=== PATIENT | female | born 1940 | race Caucasian/White ===

== ENCOUNTER 2016-08-24 04:03 | Inpatient (IN) | payer MEDICARE ==
[~2016-08-24] VITALS: Ht 154.9 cm; Wt 86.4 kg
[2016-08-24] MEDS ORDERED: NITR0.4D6 TD (04:40)
[2016-08-24] MEDS ORDERED: XARE20TA PO (04:40)
[2016-08-24] MEDS ORDERED: NITR0.4S14 SL (04:40)
[2016-08-24] MEDS ORDERED: LOSA100T37 PO (04:40)
[2016-08-24] MEDS ORDERED: METF1000 PO (04:40)
[2016-08-24] MEDS ORDERED: GABA-283 PO (04:40)
[2016-08-24] MEDS ORDERED: ATOR1TAB19 PO (04:40)
[2016-08-24] MEDS ORDERED: DORZ2OPD OU (04:40)
[2016-08-24] MEDS ORDERED: FENO48TA2 PO (04:40)
[2016-08-24] MEDS ORDERED: POTA10CA PO (04:40)
[2016-08-24] MEDS ORDERED: [UNRECOGNIZED DRUG - CODE] XX (04:40)
[2016-08-24] MEDS ORDERED: GLIM2TAB PO (04:40)
[2016-08-24] MEDS ORDERED: PROA1AER INH (04:40)
[2016-08-24] MEDS ORDERED: methylPREDNISolone INJ 125 MG/2 ML VIAL (J2930) IV ONE (04:45)
[2016-08-24 05:21] LABS: BASO % 0.4 % (0.0-1.0); EOS # 0.1 K/mm3 (0.0-0.50); LARGE UNSTAINED CELL # 0.1 K/mm3 (0.0-0.4); LARGE UNSTAINED CELL % 0.7 % (0.0-4.0); LYMPH # 1.1 K/mm3 (1.5-4.5); LYMPH % 7.9 % (24.0-44.0); MEAN CORPUSCULAR HEMOGLOBIN 32.8 pg (27.0-33.0); MEAN CORPUSCULAR HGB CONC 33.8 g/dl (32.0-36.5); MEAN CORPUSCULAR VOLUME 97.1 fl (80.0-96.0); MONO # 0.7 K/mm3 (0.0-0.8); MONO % 5.5 % (0.0-5.0); NEUTROPHILS # 10.7 K/mm3 (1.8-7.7); NEUTROPHILS % 84.6 % (36.0-66.0); PLATELET COUNT, AUTOMATED 225 k/mm3 (150-450); RED CELL DISTRIBUTION WIDTH 12.5 % (11.5-14.5); WHITE BLOOD COUNT 12.7 K/mm3 (4.0-10.0)
[2016-08-24] MEDS: IPRATROPIUM 0.5MG/ALBUTEROL 2.5MG INH SOL UD 3ML (DUONEB)(J7620) NEB SCH ×2 (05:23→05:40)
[2016-08-24 05:27] LABS: ABG BASE EXCESS -0.2 (-2.0-2.0); ABG HCO3 24.8 MEQ/L (22.0-26.0); ABG PARTIAL PRESSURE CO2 41.6 mmHg (35.0-45.0); ABG PARTIAL PRESSURE O2 63.1 mmHg (75.0-100.0); ABG STANDARD HCO3 24.2 MEQ/L (22.0-26.0); ABG TOTAL CO2 26.1 MEQ/L (23.0-31.0); ABG pH (ARTERIAL) 7.393 UNITS (7.350-7.450)
[2016-08-24 05:40] LABS: ANION GAP 11 MEQ/L (8-16); BLOOD UREA NITROGEN 17 MG/DL (7-18); CALCIUM LEVEL 8.2 MG/DL (8.8-10.2); CARBON DIOXIDE LEVEL 27 MEQ/L (21-32); CHLORIDE LEVEL 105 MEQ/L (98-107); CREATININE FOR GFR 0.72 MG/DL (0.55-1.02); GLOMERULAR FILTRATION RATE > 60.0 (>39); GLUCOSE, FASTING 162 MG/DL (83-110); POTASSIUM SERUM 3.6 MEQ/L (3.5-5.1); SODIUM LEVEL 143 MEQ/L (136-145)
[2016-08-24 05:50] VITALS: O2SAT 94
[2016-08-24] MEDS ORDERED: VITA1CHW8 PO (06:28)
[2016-08-24] MEDS ORDERED: BRIM1OPD OU (06:28)
[2016-08-24] MEDS ORDERED: CITRTAB13 PO (06:28)
[2016-08-24] MEDS ORDERED: DILT180C28 PO (06:28)
[2016-08-24] MEDS ORDERED: VITMTA PO (06:28)
[2016-08-24] MEDS ORDERED: ACETAMINOPHEN TAB 650MG DOSE (2X325MG) PO PRN (06:30)
[2016-08-24 06:50] VITALS: BP 150/68
[2016-08-24 06:51] VITALS: BP 140/65
[2016-08-24 06:52] VITALS: BP 138/65
[2016-08-24] MEDS ORDERED: NITROGLYCERIN 0.4 MG SUBL TABLET SL PRN (07:00)
[2016-08-24] MEDS ORDERED: ALBUTEROL 90 MCG/ACT 8GM HFA INHALER INH PRN (07:00)
[2016-08-24] MEDS ORDERED: IPRATROPIUM 0.5MG/ALBUTEROL 2.5MG INH SOL UD 3ML (DUONEB)(J7620) NEB PRN (07:45)
--- NOTE | 2016-08-24 07:49 | HPE ---
DATE OF ADMISSION: 08/24/2016 PRIMARY CARE PROVIDER: Dr. Juan Alberto Rueda. HOSPITALIZATION COURSE: Patient is a 36-year-old female with past medical history significant for type 2 diabetes, history of diverticulitis, chronic obstructive pulmonary disease (COPD), atrial fibrillation, Raynaud's syndrome, obstructive sleep apnea (PATY), hyperlipidemia, hypertension, polyneuropathy, rosacea, nocturnal hypoxia, presented to [facility] 08/24/2016 for acute worsening of shortness of breath. Patient stated in the past 24 hours, patient started having some minor cough and discomfort and she went to sleep and woke up 2 a.m. in the morning with worsening shortness of breath and significant fatigue and subjective fever. Patient was noted to have increased cough, increased sputum production and sputum production was a whitish-clear sputum. Denies any recent sick contact. Denies any chest pain. When patient presented to [facility], patient was thought to have O2 sat of 72% on room air and patient required high oxygen support so IV Solu-Medrol was given to the patient, however, patient did not have any significant improvement. Other significant history includes patient having rectal bleeding intermittently in the past few months and colonoscopy was done 2 years ago and patient is not aware of any significant findings. Patient was noted to have intermittent dizziness. ALLERGIES: No known drug allergies. PAST MEDICAL HISTORY: Type 2 diabetes. History of diverticulitis. Chronic obstructive pulmonary disease (COPD). Atrial fibrillation. Raynaud's syndrome. Obstructive sleep apnea (PATY). Patient is on CPAP or BiPAP. Patient is using 2 liters nasal cannula at night. Hyperlipidemia. Hypertension. Polyneuropathy from diabetes. Rosacea. Nocturnal hypoxia. PAST SURGICAL HISTORY: Hysterectomy. Gallbladder surgery. Cataract surgery. Dilation and curettage (D and C). A and P repair. HOME MEDICATIONS: - Breo one puff inhalation daily - glimepiride 2 mg by mouth daily - Lipitor 10 mg by mouth daily - Xarelto 20 mg by mouth daily - Alphagan eye drops three times daily - multivitamin one tablet by mouth daily - calcium 250 mg daily - vitamin D 2000 units by mouth daily - Mucinex 600 mg every 12 hours as needed - MetroGel on face daily - Nitro-Dur patch daily - dorzolamide one drop to affected eye twice daily - Diltiazem 180 mg by mouth daily - Klor-Con 10 mEq by mouth daily - Biotin one tablet by mouth daily - Neurontin 200 mg by mouth daily at bedtime - Metformin 1000 mg by mouth twice daily - Tricor 48 mg by mouth daily - Benicar 20/12.5 mg by mouth daily SOCIAL HISTORY: Patient used to smoke one pack daily for more than 30 years. Quit 10 years ago. Denied alcohol use. Denied recreational drug use. Patient is DO NOT RESUSCITATE/DO NOT INTUBATE. REVIEW OF SYSTEMS: General: Patient experienced subjective fever. No chills. HEENT: No vision changes. No auditory changes. Cardiovascular: No chest pain. No palpitations. Patient does have a history of atrial fibrillation. Respiratory: History of chronic obstructive pulmonary disease (COPD) and obstructive sleep apnea (PATY). Acute worsening breathing over the past 24 hours, more significant since 2 a.m. this morning. Patient complains of increased cough, increased sputum production. Gastrointestinal (GI): No nausea, no vomiting, no abdominal pain. Patient does complain of intermittent rectal bleeding. Colonoscopy was done 2 years ago. No significant finding was informed. Musculoskeletal: Patient has polyneuropathy from diabetes. Denies any acute numbness or tingling. Musculoskeletal: Patient has rosacea and Raynaud's syndrome. OBJECTIVE: Vital signs: Temperature is 97.4, pulse is 88, respiration rate 16, blood pressure is 153/72, pulse ox 92% with 3-4 liters nasal cannula (O2 sat is 72% on room air previously). General: Mild distress secondary to labored breathing, alert and oriented times three. HEENT: Positive accessory muscle use. Positive redness of the bilateral cheek. Otherwise normocephalic, atraumatic. Extraocular motor grossly intact. Cardiovascular: Irregularly irregular distant heart sounds. Heart rate around 80-90. Respiratory: I could not appreciate any wheezes or crackles. Distant lung sounds. Abdomen: Soft, nontender, nondistended. Bowel sounds present. No rebound. No guarding. Extremities: 2+ pitting edema on the left lower extremity. 1+ pitting edema in right lower extremity. No sign of cyanosis. LABORATORY DATA: WBC 12.7, hemoglobin 13.5, hematocrit 40, platelet count 225. Sodium is 143, potassium 3.6, chloride is 105, carbon dioxide 27, BUN 17, creatinine 0.72, glomerular filtration rate greater than 60. Fasting glucose is 162. Calcium 8.2, total CK is 41, troponin I is less than 0.02. BNP is 56.2. ABG showed pH of 7.393. pCo2 is 41.6, pO2 is 63.1, HDL 24.8. Microbiology: Influenza A and B are negative. Blood cultures pending. Chest x-ray official report pending, however, I cannot appreciate any consolidations or significant infiltrates. ASSESSMENT AND PLAN: 1. Acute respiratory distress. Patient will be admitted to medical/surgical floor under inpatient status. Patient could have chronic obstructive pulmonary disease (COPD) exacerbation. Patient already received IV Solu-Medrol 125 mg times one in the ED. Patient will continue with IV Solu-Medrol. Patient on Rocephin and azithromycin. Will follow with respiratory panels. 2. Atrial fibrillation, patient is on Xarelto. Patient is on Cardizem. Current patient's heart rate was in satisfactory range. 3. Diabetes. Patient is on metformin. Glimepiride will be discontinued. Patient will cover with sliding scale and patient will be on consistent carbohydrate diet. 4. Dyslipidemia, on Lipitor. Continue to monitor. 5. Raynaud's syndrome. 6. Intermittent rectal bleeding. We do not have colonoscopy report in [facility]. We will check occult. Monitor hemoglobin and hematocrit. Patient's Xarelto usage may contribute partly to the patient's rectal bleeding. 7. Deep venous thrombosis (DVT) prophylaxis, patient is on Xarelto.
[2016-08-24] MEDS: AZITHROMYCIN INJ 500 MG, VIAL MATE ADAPTER 1 EACH in D5W 250 ML IV SCH (08:06)
[2016-08-24] MEDS: diltiaZEM **CD** 180 MG CAP PO SCH (08:06)
[2016-08-24] MEDS: POTASSIUM CHLORIDE 10 MEQ SR TABLET PO SCH (08:07)
[2016-08-24] MEDS: MULTIVITAMINS/MINERALS THERAP 1 TAB PO SCH (08:07)
[2016-08-24] MEDS: GABAPENTIN 400 MG CAP PO SCH ×3 (08:07→21:29)
[2016-08-24] MEDS: ATORVASTATIN 10 MG TAB PO SCH (08:08)
[2016-08-24] MEDS: DORZOLAMIDE 2% OPHTH SOLN 10 ML BTL OU SCH ×2 (08:09→21:30)
[2016-08-24] MEDS: BRIMONIDINE 0.1% OPHTH SOLN 5 ML OU SCH ×3 (08:09→21:30)
[2016-08-24] MEDS: FENOFIBRATE 48 MG TAB (TRICOR) PO SCH (08:09)
--- NOTE | 2016-08-24 08:14 | REP ---
Clinical: Dyspnea. Technique: PA and lateral. Comparison: 12/04/2014. Findings: Mediastinum and cardiac silhouette are normal. Lung cameron demonstrate chronic changes and scattered bilateral atelectasis cannot be excluded. There is a 15 mm nodule in the right mid lung zone midclavicular line which represents a new finding and requires further investigation. No effusion. No pneumothorax. Skeletal structures demonstrate osteopenia and degenerative changes. Impression: 1. A 15 mm rounded nodule in the right mid lung zone requires further investigation including chest CT with contrast. 2. Chronic stable changes. Cannot exclude trace basilar atelectasis. Signed by Mathew Sparks MD 08/24/2016 08:05 A
[2016-08-24 09:10] VITALS: BP 130/70
[2016-08-24] MEDS: cefTRIAXone SOD 2 GM in D5W MINI-BAG PLUS 50 ML IV SCH ×2 (10:42→21:29)
[2016-08-24] MEDS ORDERED: ISOVUE-370 76% 100ML VIAL (Q9967) As Ordered ONE (12:05)
--- NOTE | 2016-08-24 12:55 | REP ---
Clinical: pulmonary nodule. Technique: Axial contrast enhanced images from the thoracic inlet to the upper abdomen using 100 ml Isovue 370 intravenous contrast material with coronal and sagittal re-formations. Findings: A 17 mm pulmonary nodule is identified in the posterior segment right upper lobe (images 39 - 43). There is mildly prominent mediastinal lymph nodes. Underlying mild emphysematous changes and basilar bronchiectasis noted. No pleural effusion/reaction or pneumothorax. Atherosclerotic changes to the thoracic aorta and coronary arteries noted with mild cardiomegaly. Musculoskeletal structures are intact. Impression: 17 mm pulmonary nodule in the right upper lobe and mild adenopathy. Findings are compatible with neoplasm until proven otherwise. Consider biopsy and/or PET-CT. Signed by Mathew Sparks MD 08/24/2016 12:46 P
--- NOTE | 2016-08-24 13:41 | REP ---
Clinical: Pain and swelling . Technique: Garcia scale and color Doppler evaluation using linear high frequency transducer. Findings: Ultrasound examination of the right and left lower extremity deep venous structures from the common femoral vein to the popliteal vein demonstrates normal compressibility flow and wave patterns in response to respiration and augmentation. There is no evidence for deep venous thrombosis. Impression: No evidence for deep venous thrombosis of the bilateral lower extremities . Signed by Mathew Sparks MD 08/24/2016 01:33 P
[2016-08-24] MEDS: RIVAROXABAN 20 MG TAB (XARELTO) PO SCH (16:20)
--- NOTE | 2016-08-24 16:38 | ECGEPIP ---
Stationary ECG Study [facility] - ED Test Date: 2016-08-24 Pat Name: BARRY JACOBO Department: Room: - Gender: F Medical Lab Assistant: : 1940 Requested By: LV Hartley Order Number: [id number] Reading MD: Teresa Cota Measurements Intervals [place] Rate: 81 P: [place]: 0 QRS: 97 QRSD: 84 T: 120 QT: 263 QTc: 306 Interpretive Statements ATRIAL FIBRILLATION BORDERLINE RIGHT AXIS DEVIATION LOW QRS VOLTAGE IN EXTREMITY LEADS SEPTAL MYOCARDIAL INFARCTION, PROBABLY OLD NSTTW ABNORMALITY NO PRIOR FOR COMPARISON Electronically Signed On 08-24-2016 16:38:52 EDT by Teresa Cota
[2016-08-24] MEDS: methylPREDNISolone INJ 125 MG/2 ML VIAL (J2930) IV SCH (21:29)
[2016-08-24 22:00] VITALS: BP 124/58
[2016-08-25 06:00] VITALS: BP 145/84
[2016-08-25 06:51] LABS: MEAN CORPUSCULAR HEMOGLOBIN 32.6 pg (27.0-33.0); MEAN CORPUSCULAR HGB CONC 33.2 g/dl (32.0-36.5); RED CELL DISTRIBUTION WIDTH 12.5 % (11.5-14.5); WHITE BLOOD COUNT 11.5 K/mm3 (4.0-10.0)
[2016-08-25 07:02] LABS: ANION GAP 11 MEQ/L (8-16); BLOOD UREA NITROGEN 21 MG/DL (7-18); CALCIUM LEVEL 9.1 MG/DL (8.8-10.2); CARBON DIOXIDE LEVEL 25 MEQ/L (21-32); CHLORIDE LEVEL 106 MEQ/L (98-107); CREATININE FOR GFR 0.67 MG/DL (0.55-1.02); GLOMERULAR FILTRATION RATE > 60.0 (>39); GLUCOSE, FASTING 246 MG/DL (83-110); POTASSIUM SERUM 3.6 MEQ/L (3.5-5.1); SODIUM LEVEL 142 MEQ/L (136-145)
[2016-08-25] MEDS ORDERED: GLUCOSE 4 GM CHEW TABLET PO PRN (08:15)
[2016-08-25] MEDS ORDERED: DEXTROSE 50% 50 ML SYRINGE IV PRN (08:15)
[2016-08-25] MEDS ORDERED: GLUCAGON FOR INJ 1 MG VIAL (J1610) SC PRN (08:15)
[2016-08-25] MEDS: GABAPENTIN 400 MG CAP PO SCH ×3 (09:00→21:41)
[2016-08-25] MEDS: AZITHROMYCIN INJ 500 MG, VIAL MATE ADAPTER 1 EACH in D5W 250 ML IV SCH (09:45)
[2016-08-25] MEDS: ATORVASTATIN 10 MG TAB PO SCH (09:45)
[2016-08-25] MEDS: FENOFIBRATE 48 MG TAB (TRICOR) PO SCH (09:45)
[2016-08-25] MEDS: POTASSIUM CHLORIDE 10 MEQ SR TABLET PO SCH (09:45)
[2016-08-25] MEDS: MULTIVITAMINS/MINERALS THERAP 1 TAB PO SCH (09:45)
[2016-08-25] MEDS: methylPREDNISolone INJ 125 MG/2 ML VIAL (J2930) IV SCH (09:45)
[2016-08-25] MEDS: DORZOLAMIDE 2% OPHTH SOLN 10 ML BTL OU SCH ×2 (09:46→21:43)
[2016-08-25] MEDS: diltiaZEM **CD** 180 MG CAP PO SCH (09:46)
[2016-08-25] MEDS: BRIMONIDINE 0.1% OPHTH SOLN 5 ML OU SCH ×3 (09:46→21:43)
[2016-08-25] MEDS: cefTRIAXone SOD 2 GM in D5W MINI-BAG PLUS 50 ML IV SCH ×2 (09:46→21:42)
--- NOTE | 2016-08-25 11:28 | IPNPDOC ---
Text Note Date of Service The patient was seen on 08/25/16. NOTE Subjective: Patient is a 76 year old female with a PMHx of DM2, Hx of Diverticulitis, COPD, A. fib, Raynaud's syndrome, PATY, DLP, HTN, Neuropathy, Rosacea, Nocturnal hypoxia who presented to the ER with shortness of breath and productive cough with white sputum. Patient was desaturating in the ER and was put on supplemental oxygen. Patient was admitted for a COPD exacerbation and possible pneumonia. Patient was seen and examined at the bedside. I have went over the result of the CT chest with the patient. I have advised the patient and her daughter about the suspicion of cancer and that the next step would be a biopsy to confirm the diagnosis. Patient is agreeable to remain for the biopsy. Objective: Vitals (See below) General: Lying in bed, no acute distress, comfortable, AAOx3 HEENT: NC, AT CVS: Irregularly irregular, +S1S2 Lungs: Fair air entry b/l, -w/r/r Abdomen: Soft, ND, NT, +BSx4 Extremities: +PPx4, - Edema, - Calf tenderness Assessment and plan: 1. Acute hypoxic respiratory failure - likely 2/2 acute COPD exacerbation - Patient presented with shortness of breath and productive cough; was started on non-rebreather in the ER - Physical today does not reveal any significant wheezing - Her oxygenation requirements have gone down - Mild leukocytosis - Respiratory panel negative - CT chest 08/24: 17 mm pulmonary nodule in the right upper lobe and mild adenopathy; compatible with neoplasm until proven otherwise - c/w solumedrol; will begin to taper - c/w duoneb inhaled therapy and Ceftriazone / Azithromycin (Day #2) 2. Possible lung malignancy - Advised patient was the findings on imaging have shown and that the next step would be a tissue diagnosis - CT chest 08/24: 17 mm pulmonary nodule in the right upper lobe and mild adenopathy; compatible with neoplasm until proven otherwise - Will order CT guided biopsy of peripherally located nodule 3. Paroxysmal atrial fibrillation - c/w rate control with Cardizem - c/w anticoagulation with Xarelto 4. DM2 - c/w ISS 5. DLP - c/w lipitor 6. Raynaud's syndrome 7. Hx of rectal bleeding - Colonosocopy done about 2 years prior - hg remains stable 8. Hx of Diverticulitis 9. PATY and Hx of Nocturnal hypoxia - c/w PATY protocol 10. HTN - c/w Diltiazem 11. Neuropathy 12. Rosacea 13. DVT prophylaxis - on full anticoagulation with Xarelto VS,Fishbone, I+O VS, Fishbone, I+O Laboratory Tests 08/25/16 06:30 Calcium Level 9.1 08/25/16 06:31 Red Blood Count 4.18, Mean Corpuscular Volume 98.0 H, Mean Corpuscular Hemoglobin 32.6, Mean Corpuscular Hemoglobin Concent 33.2, Red Cell Distribution Width 12.5 Vital Signs Date Time Temp Pulse Resp B/P Pulse Ox O2 Delivery O2 Flow Rate FiO2 08/25/16 09:51 Nasal Cannula 1.0 08/25/16 09:46 76 145/84 08/25/16 06:00 98.5 20 97 I&O- Last 24 Hours up to 6 AM 08/25/16 06:00 Intake Total 1215 ml Output Total 900 ml Balance 315 ml SHYAM DUGAN MD Aug 25, 2016 11:28
[2016-08-25] MEDS: HumaLOG INSULIN (NovoLOG) PER UNIT SC SCH ×3 (12:48→21:41)
[2016-08-25 13:07] LABS: INR 1.45
[2016-08-25 14:00] VITALS: BP 126/68
[2016-08-25] MEDS: RIVAROXABAN 20 MG TAB (XARELTO) PO SCH (17:22)
[2016-08-25] MEDS: methylPREDNISolone INJ 40 MG/1 ML VIAL (J2920) IV SCH (21:42)
[2016-08-25 22:00] VITALS: BP 147/77
[2016-08-26 06:00] VITALS: BP 150/65
[2016-08-26 07:13] LABS: ANION GAP 9 MEQ/L (8-16); BLOOD UREA NITROGEN 27 MG/DL (7-18); CARBON DIOXIDE LEVEL 28 MEQ/L (21-32); CHLORIDE LEVEL 106 MEQ/L (98-107); CREATININE FOR GFR 0.66 MG/DL (0.55-1.02); GLOMERULAR FILTRATION RATE > 60.0 (>39); GLUCOSE, FASTING 201 MG/DL (83-110); POTASSIUM SERUM 3.8 MEQ/L (3.5-5.1); SODIUM LEVEL 143 MEQ/L (136-145)
[2016-08-26 08:46] LABS: MEAN CORPUSCULAR HEMOGLOBIN 33.2 pg (27.0-33.0); MEAN CORPUSCULAR HGB CONC 33.4 g/dl (32.0-36.5); MEAN CORPUSCULAR VOLUME 99.4 fl (80.0-96.0); RED CELL DISTRIBUTION WIDTH 12.5 % (11.5-14.5); WHITE BLOOD COUNT 13.3 K/mm3 (4.0-10.0)
[2016-08-26] MEDS: methylPREDNISolone INJ 40 MG/1 ML VIAL (J2920) IV SCH (08:54)
[2016-08-26] MEDS: POTASSIUM CHLORIDE 10 MEQ SR TABLET PO SCH (08:54)
[2016-08-26] MEDS: GABAPENTIN 400 MG CAP PO SCH ×3 (08:54→22:06)
[2016-08-26] MEDS: FENOFIBRATE 48 MG TAB (TRICOR) PO SCH (08:54)
[2016-08-26] MEDS: cefTRIAXone SOD 2 GM in D5W MINI-BAG PLUS 50 ML IV SCH ×2 (08:54→22:06)
[2016-08-26] MEDS: MULTIVITAMINS/MINERALS THERAP 1 TAB PO SCH (08:54)
[2016-08-26] MEDS: ATORVASTATIN 10 MG TAB PO SCH (08:54)
[2016-08-26] MEDS: AZITHROMYCIN INJ 500 MG, VIAL MATE ADAPTER 1 EACH in D5W 250 ML IV SCH (08:54)
[2016-08-26] MEDS: diltiaZEM **CD** 180 MG CAP PO SCH (08:55)
[2016-08-26] MEDS: DORZOLAMIDE 2% OPHTH SOLN 10 ML BTL OU SCH ×2 (08:55→22:07)
[2016-08-26] MEDS: BRIMONIDINE 0.1% OPHTH SOLN 5 ML OU SCH ×3 (08:55→22:07)
[2016-08-26] MEDS: HumaLOG INSULIN (NovoLOG) PER UNIT SC SCH ×4 (08:55→21:00)
[2016-08-26] MEDS: predniSONE 10 MG TAB PO SCH ×2 (09:00→22:05)
--- NOTE | 2016-08-26 11:01 | IPNPDOC ---
Text Note Date of Service The patient was seen on 08/26/16. NOTE Subjective: Patient is a 76 year old female with a PMHx of DM2, Hx of Diverticulitis, COPD, A. fib, Raynaud's syndrome, PATY, DLP, HTN, Neuropathy, Rosacea, Nocturnal hypoxia who presented to the ER with shortness of breath and productive cough with white sputum. Patient was desaturating in the ER and was put on supplemental oxygen. Patient was admitted for a COPD exacerbation and possible pneumonia. Patient was seen and examined at the bedside. Her saturation was rechecked with her hand stable on the table; saturation was noted to be 92% off of oxygen. She had noted that this morning she had a bowel movement with blood. She reports that this has happened a few times before, but usually self resolves. She denies any shortness of breath, chest pain, palpitations or dizziness. She is aware that she will be going for biopsy tomorrow of the lung nodule with suspicion of malignancy. Objective: Vitals (See below) General: Lying in bed, no acute distress, comfortable, AAOx3 HEENT: NC, AT CVS: Irregularly irregular, +S1S2 Lungs: Fair air entry b/l, -w/r/r Abdomen: Soft, ND, NT, +BSx4 Extremities: +PPx4, - Edema, - Calf tenderness Assessment and plan: 1. Acute hypoxic respiratory failure - likely 2/2 acute COPD exacerbation, less likely 2/2 pneumonia - Patient presented with shortness of breath and productive cough; was started on non-rebreather in the ER - Physical today does not reveal any significant wheezing - Saturating well without oxygen support - Mild leukocytosis; possibly 2/2 steroid use - Respiratory panel negative - CT chest 08/24: 17 mm pulmonary nodule in the right upper lobe and mild adenopathy; compatible with neoplasm until proven otherwise - Will start prednisone today; s/p Solumedrol - c/w duoneb inhaled therapy and Ceftriazone / Azithromycin (Day #3) 2. Possible lung malignancy - Advised patient was the findings on imaging have shown and that the next step would be a tissue diagnosis - CT chest 08/24: 17 mm pulmonary nodule in the right upper lobe and mild adenopathy; compatible with neoplasm until proven otherwise - Will order CT guided biopsy of peripherally located nodule - Will hold Xarelto today; will be >24 hours since last dose when it's time for procedure 3. Paroxysmal atrial fibrillation - c/w rate control with Cardizem - Anticoagulation with Xarelto will be held 4. DM2 - c/w ISS - c/w Levemir 5. DLP - c/w lipitor 6. Raynaud's syndrome 7. Hx of rectal bleeding - Reports that she had some rectal bleeding this morning when she had a bowel movement - No abdominal tenderness on physical exam - Colonoscopy done about >2 years prior; no report available - Hg remains stable this morning - Will f/u H&H at 1PM today 8. Hx of Diverticulitis 9. PATY and Hx of Nocturnal hypoxia - c/w PATY protocol 10. HTN - c/w Diltiazem 11. Neuropathy 12. Rosacea 13. DVT prophylaxis - Will hold Xarelto (re: Biopsy and rectal bleeding) Disposition: - Will go for lung biopsy tomorrow - Will evaluate H&H to ensure stability - Will likely need repeat colonoscopy; likely outpatient if Hg remains stable VS,Michaelbone, I+O VS, Fishbone, I+O Laboratory Tests 08/26/16 06:44 Calcium Level 9.0, Red Blood Count 4.16, Mean Corpuscular Volume 99.4 H, Mean Corpuscular Hemoglobin 33.2 H, Mean Corpuscular Hemoglobin Concent 33.4, Red Cell Distribution Width 12.5 Vital Signs Date Time Temp Pulse Resp B/P Pulse Ox O2 Delivery O2 Flow Rate FiO2 08/26/16 08:55 82 150/65 08/26/16 06:00 97.9 20 92 Nasal Cannula 2.0 I&O- Last 24 Hours up to 6 AM 08/26/16 05:59 Intake Total 1380 ml Balance 1380 ml SHYAM DUGAN MD Aug 26, 2016 11:00
[2016-08-26 14:00] VITALS: BP 163/86
[2016-08-26 22:00] VITALS: BP 133/85
[2016-08-27 06:00] VITALS: BP 171/83
[2016-08-27 07:01] LABS: MEAN CORPUSCULAR HEMOGLOBIN 33.1 pg (27.0-33.0); MEAN CORPUSCULAR HGB CONC 33.7 g/dl (32.0-36.5); RED CELL DISTRIBUTION WIDTH 12.4 % (11.5-14.5); WHITE BLOOD COUNT 11.9 K/mm3 (4.0-10.0)
[2016-08-27 07:28] LABS: ANION GAP 8 MEQ/L (8-16); BLOOD UREA NITROGEN 26 MG/DL (7-18); CALCIUM LEVEL 8.8 MG/DL (8.8-10.2); CARBON DIOXIDE LEVEL 29 MEQ/L (21-32); CHLORIDE LEVEL 105 MEQ/L (98-107); CREATININE FOR GFR 0.79 MG/DL (0.55-1.02); GLOMERULAR FILTRATION RATE > 60.0 (>39); GLUCOSE, FASTING 201 MG/DL (83-110); POTASSIUM SERUM 3.8 MEQ/L (3.5-5.1); SODIUM LEVEL 142 MEQ/L (136-145)
[2016-08-27] MEDS: HumaLOG INSULIN (NovoLOG) PER UNIT SC SCH ×2 (07:30→12:00)
[2016-08-27] MEDS: DORZOLAMIDE 2% OPHTH SOLN 10 ML BTL OU SCH (09:00)
[2016-08-27] MEDS ORDERED: AZITHROMYCIN 250 MG TAB PO SCH (09:00)
[2016-08-27] MEDS: BRIMONIDINE 0.1% OPHTH SOLN 5 ML OU SCH (09:00)
[2016-08-27] MEDS: ATORVASTATIN 10 MG TAB PO SCH (10:28)
[2016-08-27 10:32] VITALS: BP 171/83
[2016-08-27] MEDS: diltiaZEM **CD** 180 MG CAP PO SCH (10:32)
[2016-08-27] MEDS: predniSONE 10 MG TAB PO SCH (10:33)
[2016-08-27] MEDS: GABAPENTIN 400 MG CAP PO SCH (10:33)
[2016-08-27] MEDS: POTASSIUM CHLORIDE 10 MEQ SR TABLET PO SCH (10:34)
[2016-08-27] MEDS: MULTIVITAMINS/MINERALS THERAP 1 TAB PO SCH (10:35)
[2016-08-27] MEDS: FENOFIBRATE 48 MG TAB (TRICOR) PO SCH (10:35)
[2016-08-27] MEDS: cefTRIAXone SOD 2 GM in D5W MINI-BAG PLUS 50 ML IV SCH (10:36)
[2016-08-27] MEDS ORDERED: LIDOCAINE 1% MDV 20ML VIAL As Ordered ONE (12:17)
[2016-08-27 14:00] VITALS: BP 156/83
[2016-08-27] MEDS ORDERED: PRED10TA PO (14:24)
[2016-08-27] MEDS ORDERED: BREO1INH3 INH (14:24)
[2016-08-27] MEDS ORDERED: LEVA500T PO (14:24)
--- NOTE | 2016-08-27 14:26 | REP ---
Chest x-ray: Single view post biopsy. History: Post needle biopsy right upper lobe lung nodule. Question pneumothorax. Comparison chest x-ray August 24, 2016. Findings: The biopsied nodule is again seen unchanged. There is no evidence of pneumothorax or other complication. There is some elevation of the left hemidiaphragm again noted. Oxygen tubing is seen. Impression: No evidence of pneumothorax. Signed by Dieudonne Dunaway MD 08/28/2016 07:29 A
--- NOTE | 2016-08-27 15:25 | DSES ---
DATE OF ADMISSION: 08/24/2016 DATE OF DISCHARGE: 08/27/2016 ATTENDING PHYSICIAN: Sheila Scherer MD PRIMARY CARE PHYSICIAN: Tashi Curiel MD REFERRING PHYSICIAN: None. CONSULTING PHYSICIANS: None. CONDITION ON DISCHARGE: Stable. FINAL DIAGNOSES: 1. Acute hypoxic respiratory failure, likely secondary to acute chronic obstructive pulmonary disease (COPD) exacerbation. 2. Possible lung malignancy. PROCEDURES: Patient had a CT guided lung biopsy completed on 08/27/2016. HISTORY OF PRESENT ILLNESS: Patient is a 76-year-old female with a past medical history of diabetes mellitus type 2, history of diverticulitis, COPD, atrial fibrillation, Raynaud's phenomenon, obstructive sleep apnea, dyslipidemia, hypertension, neuropathy, rosacea, and nocturnal hypoxia who presented to the emergency room with shortness of breath and productive cough and white sputum. Patient was desaturating in the emergency room and was put on supplemental oxygen. Patient was admitted for acute COPD exacerbation and possible pneumonia. HOSPITAL COURSE: 1. Acute hypoxic respiratory failure, likely secondary to acute COPD exacerbation, less likely secondary to pneumonia. The patient presented with shortness of breath and productive cough and was started on a nonrebreather in the emergency room. Throughout the hospital course, patient's supplemental oxygen requirement has been going down and she has been saturating well on room air. Upon discharge, she had mild leukocytosis which could possibly be secondary to steroid use. Respiratory panel has been negative. Patient had a CT scan completed on 08/24/2016, which revealed a 17 mm pulmonary nodule in the right upper lobe and mild adenopathy. The patient was started on Solu-Medrol initially and has been transitioned to prednisone by mouth and she has put on prednisone taper upon discharge. Patient has been put on DuoNeb inhaled therapy throughout her hospital course as well as ceftriaxone and azithromycin which brings her to day #4 of antibiotics. The patient has been switched to Levaquin by mouth for completion of antibiotic course. 2. Possible lung malignancy. Advised patient of the finding upon imaging and the possible diagnosis could be cancer. Was advised that she will need a tissue diagnosis. The patient went for a CT guided lung biopsy done today. Pathology reports are obviously still pending. The patient's Xarelto was held and upon discharge her Xarelto was restarted. The patient has been advised to followup with her primary care provider and pulmonary within the next 7 days for results of the biopsy. 3. Paroxysmal atrial fibrillation. Continued rate control with Cardizem and anticoagulation with Xarelto. 4. Diabetes mellitus. Continued with insulin sliding scale and Levemir. 5. Dyslipidemia. Continued with Lipitor. 6. Raynaud's phenomenon. 7. History of rectal bleeding. Patient reported that she had some rectal bleeding before she came to the hospital and has had some episodes of rectal bleeding in the last few days. The patient has no abdominal tenderness on physical exam. Colonoscopy was done about 2 years prior, however no report is available. Hemoglobin has remained stable throughout the entire hospital course. 8. History of diverticulitis. 9. Obstructive sleep apnea and history of nocturnal hypoxemia. Continued with obstructive sleep apnea (PATY) protocol. 10. Hypertension. Continued with diltiazem. 11. Neuropathy. 12. Rosacea. 13. Deep venous thrombosis (DVT) prophylaxis. She was on full anticoagulation with Xarelto. DISCHARGE MEDICATIONS: The patient will be discharged home with the following medication list: - albuterol two puffs inhaled every 4 hours as needed for shortness of breath - atorvastatin 10 mg by mouth daily - Alphagan-P one drop in each eye three times a day - vitamin D3 2000 units by mouth daily - calcitriol 0.5 mg by mouth daily - diltiazem 180 mg by mouth daily - dorzolamide one drop in each eye twice a day - fenofibrate 48 mg by mouth daily - gabapentin 400 mg by mouth three times a day - glimepiride 2 mg by mouth daily - losartan/hydrochlorothiazide 100/25 mg one tablet by mouth daily - metformin 1000 mg by mouth twice a day - multivitamin one tablet by mouth daily - nitroglycerin 0.4 mg transdermally every 12 hours - nitroglycerin 0.4 mg sublingual to be taken as directed - potassium chloride 10 mEq by mouth daily - Xarelto 20 mg by mouth every evening New medications prescribed include: - Breo one puff inhaled daily - Levaquin 500 mg by mouth daily for the next 3 days - prednisone to be taken as directed DISCHARGE INSTRUCTIONS: The patient was advised to followup with her primary care provider and pulmonary, Dr. Cotton, within the next 7 days. She has been advised to remain compliant with treatment plan and medications and strongly advised to remain compliant with followup in order to followup with the results of biopsy. The patient has been advised to return to the emergency room if she experiences any problems. TIME SPENT ON DISCHARGE: 35 minutes.
--- NOTE | 2016-08-27 16:25 | REP ---
CT guided needle biopsy right upper lobe lung mass: Comparison CT study is from 08/24/2016. Technique: The patient was interviewed and informed consent was obtained. The patient safety time-out was articulated and agreed to. The patient was placed in a left side down decubitus position and the right posterior lateral chest was localized. Utilizing aseptic precautions, local anesthetic with 1% lidocaine, and CT guidance, a 19/20-gauge coaxial cutting Temno needle device was passed from a right posterolateral approach into the nodule in the posterior segment right upper lobe. A total of six core specimens were retrieved and submitted and Cytolyt to the pathology department for analysis. The patient tolerated the procedure well. Postprocedure imaging showed a tiny sliver of pleural air at the biopsy site. Some parenchymal bleeding at the biopsy site is also noted. Impression: CT guided needle biopsy right upper lobe lung nodule. Post biopsy chest x-ray will be obtained and dictated separately. Signed by Dieudonne Dunaway MD 08/28/2016 07:30 A
[2016-08-29 00:06] LABS: TISSUE TRANSGLUTAMINASE IgG <2 U/mL (0-5)
== END 2016-08-27 16:50 | disposition home or self-care (01) | DRG 189 ==
LOC: EDBD 04:03 → M ED 04:31 → M ED INP 06:20 → M MSPAV 06:52 → M MS5PR 09:11
PROVIDERS: ADMIT Internal Medicine; ATTEND Internal Medicine
PROC: 0B9C3ZX Drainage of Right Upper Lung Lobe, Percutaneous Approach, Diagnostic (ICD-10-PCS; principal; 2016-08-27)
DX: J96.01 Acute respiratory failure with hypoxia (principal); J44.1 Chronic obstructive pulmonary disease with (acute) exacerbation; K62.5 Hemorrhage of anus and rectum; C34.11 Malignant neoplasm of upper lobe, right bronchus or lung; I48.0 Paroxysmal atrial fibrillation; I73.00 Raynaud's syndrome without gangrene; G47.33 Obstructive sleep apnea (adult) (pediatric); E78.5 Hyperlipidemia, unspecified; I10 Essential (primary) hypertension; R42 Dizziness and giddiness; L71.9 Rosacea, unspecified; Z66 Do not resuscitate; E11.42 Type 2 diabetes mellitus with diabetic polyneuropathy; Z79.51 Long term (current) use of inhaled steroids; Z79.84 Long term (current) use of oral hypoglycemic drugs; Z79.01 Long term (current) use of anticoagulants; Z79.899 Other long term (current) drug therapy; Z99.81 Dependence on supplemental oxygen; Z87.891 Personal history of nicotine dependence

== ENCOUNTER → 2016-09-05 | Outpatient (CLI) | payer MEDICARE ==
[~2016-09-05] MED LIST: ATOR1TAB19 PO; BREO1INH3 INH; BRIM1OPD OU; CITRTAB13 PO; DILT180C28 PO; DORZ2OPD OU; FENO48TA2 PO; GABA-283 PO; GLIM2TAB PO; LEVA500T PO; LOSA100T37 PO; METF1000 PO; NITR0.4D6 TD; NITR0.4S14 SL; POTA10CA PO; PRED10TA PO; PROA1AER INH; VITA1CHW8 PO; VITMTA PO; XARE20TA PO; [UNRECOGNIZED DRUG - CODE] XX
--- NOTE | 2016-09-05 15:59 | REP ---
PET/CT: History: Initial staging lung carcinoma. CT guided needle biopsy from August 27, 2016 produced histologic diagnosis of non-small cell lung carcinoma, favor poorly differentiated squamous cell carcinoma. Comparisons: Comparison chest CT study August 24, 2016. TECHNIQUE: 61 minutes following the intravenous injection of a 8.5 mCi dose of F-18 FDG, three-dimensional PET scintigraphy is acquired from the skull base to the proximal thighs. Triplanar noncontrast CT scanning is acquired through the same anatomic range for attenuation correction, and image registration with scan parameters optimized to minimize radiation exposure to the patient. PET scintigraphy and CT datasets were fused and displayed on a workstation with multiplanar and projection display capability. PET/CT Findings: The known right upper lobe lung mass is hypermetabolic. Maximum standard uptake value in the lesion is 16.6. There is no other abnormal hypermetabolic uptake within the chest. Head and neck soft tissues are unremarkable. In the abdomen and pelvis, there is normal hepatic splenic, gastrointestinal, and genitourinary FDG distribution. No abnormal hypermetabolic uptake is seen in the abdomen or pelvis. Impression: Hypermetabolic uptake in the known posterior segment right upper lobe lung mass. No other abnormal hypermetabolic uptake. Signed by Dieudonne Dunaway MD 09/05/2016 04:12 P
== END ==
LOC: M RAD 13:17
PROVIDERS: ATTEND Family Medicine
DX: C34.91 Malignant neoplasm of unspecified part of right bronchus or lung (principal)
CPT/HCPCS: 78815; A9552

== ENCOUNTER → 2016-09-20 | Outpatient (CLI) | payer MEDICARE ==
[2016-09-20 19:38] LABS: ALBUMIN 3.7 GM/DL (3.2-5.2); ANION GAP 9 MEQ/L (8-16); BLOOD UREA NITROGEN 14 MG/DL (7-18); CALCIUM LEVEL 8.6 MG/DL (8.8-10.2); CARBON DIOXIDE LEVEL 25 MEQ/L (21-32); CHLORIDE LEVEL 108 MEQ/L (98-107); GLOMERULAR FILTRATION RATE > 60.0 (>39); GLUCOSE, FASTING 85 MG/DL (83-110); PHOSPHORUS LEVEL 2.8 MG/DL (2.5-4.9); POTASSIUM SERUM 3.6 MEQ/L (3.5-5.1); SODIUM LEVEL 142 MEQ/L (136-145)
[2016-09-20 19:49] LABS: MEAN CORPUSCULAR HEMOGLOBIN 35.1 pg (27.0-33.0); MEAN CORPUSCULAR HGB CONC 35.8 g/dl (32.0-36.5); MEAN CORPUSCULAR VOLUME 97.8 fl (80.0-96.0); RED CELL DISTRIBUTION WIDTH 12.7 % (11.5-14.5); WHITE BLOOD COUNT 5.2 K/mm3 (4.0-10.0)
== END ==
LOC: M WUC 17:25
PROVIDERS: ATTEND Internal Medicine Cardiovascular Disease
DX: R07.2 Precordial pain (principal)

== ENCOUNTER → 2016-10-18 | Outpatient (CLI) | payer MEDICARE ==
--- NOTE | 2016-10-18 14:42 | RADONC ---
RADIATION ONCOLOGY CONSULTATION NOTE DATE: 10/18/2016 CHART NUMBER: [id number] DIAGNOSIS: Right lung cancer. STAGE: 1A, [id number]. ECOG PERFORMANCE STATUS: 1 CONSULTATION NOTE: Ms. 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 HISTORY OF PRESENT ILLNESS: The patient has a long history of COPD. She was found on a routine chest x-ray, following a history of cough, done 08/24/2016 to have a 15 mm rounded nodule in the right midlung zone. A subsequent CT scan done on 08/24/2016 confirmed a 17 mm pulmonary nodule in the right upper lobe. There was a question of some mild adenopathy. A biopsy was undertaken on 08/27/[address] guidance, and pathology revealed a poorly differentiated squamous cell carcinoma of the right upper lobe. Subsequent PET scan done 09/05/2016 confirmed hypermetabolic uptake with an SUV value of 16.6 in the right upper lobe nodule. No other evidence of hypermetabolic uptake was seen. The patient was presented at our multidisciplinary tumor conference way, in which we discussed the possibility of SBRT radiation therapy. PAST MEDICAL HISTORY: The patient's past medical history is positive for emphysema, hypertension, diabetes, bronchitis, and cataracts. She has a history of diverticulitis as well as COPD with atrial fib. She has Raynaud's phenomenon and sleep apnea. The patient had a D and C as well as a hysterectomy in the past. She has had multiple breast biopsies. ALLERGIES: The patient has no known drug allergies. SOCIAL HISTORY: The patient had smoked one pack of cigarettes per day for 48 years. She quit in 2005. She does not abuse alcohol. FAMILY HISTORY: The patient's family history is positive for a mother with lung cancer and a sister with lung cancer. REVIEW OF SYSTEMS: The patient's review of systems is positive for shortness of breath. She is on nasal oxygen throughout the day and night. She has some hearing loss and decreased energy. She has physical limitations secondary to her oxygen requirements. She denies nausea, vomiting, fevers, chills, night sweats, diplopia, headaches, anxiety, depression, anorexia, weight loss, visual disturbances, chest pain, urinary or bowel difficulties, bone pain, or neurological problems. PHYSICAL EXAMINATION: The patient is a well-developed, well-nourished white female in no acute distress who is on nasal oxygen. HEENT exam is normocephalic, atraumatic. Extraocular movements are intact. There is no palpable cervical, supraclavicular, infraclavicular, axillary, or inguinal lymphadenopathy present. Lungs are clear to auscultation and percussion. Heart has a regular rate and rhythm. Abdomen is benign with no hepatosplenomegaly, masses, or tenderness. Skeletal examination reveals no tenderness to pressure or percussion of the bony skeleton. Extremities reveal no clubbing, cyanosis, or edema. Neurologic exam is grossly intact, as is the remainder of the physical examination. IMAGING: I have personally reviewed the patient's PET scan done on 09/05/2016, which shows hypermetabolic uptake in a right upper lobe nodule. ASSESSMENT: I believe the patient appears to be a candidate for SBRT radiation therapy. I am referring her to [facility] to get the expert opinion of their Radiation Oncologists. I look forward to their expert opinion with regards to the candidacy of this patient for SBRT. In light of the fact that this patient is being managed by Dr. Cortes as well as having been referred to the radiation oncologist at [facility], I have discharged her from our followup except on a p.r.n. basis. I made clear to the patient that we are more than happy to follow her should she wish to undergo followups here following her treatment. If she does choose to be followed here, I have asked her to either contact us to set up another appointment or have the physicians at [facility] refer her back. Thank you for allowing us to participate in the care of this very pleasant woman. If I could be of any further assistance or provide you with any information, please feel free to contact me at anytime. cc: MD Goran Dinero, DO [facility] Walter Cochran MD [facility] *Nicolas Tolentino MD *Dayne Jo MD [facility]
== END ==
LOC: M ONCR 09:57
PROVIDERS: ATTEND Radiology Radiation Oncology
DX: C34.91 Malignant neoplasm of unspecified part of right bronchus or lung (principal); J44.9 Chronic obstructive pulmonary disease, unspecified

== ENCOUNTER → 2016-11-26 | Outpatient (REF) | payer MEDICARE ==
[~2016-11-26] MED LIST changes: +LEVA1TAB2 PO; -LEVA500T PO; -LOSA100T37 PO; +LOSA100T5 PO; -METF1000 PO; +METF10004 PO; -PRED10TA PO; +PRED10TA2 PO; -PROA1AER INH; +PROAAER10 INH
[2016-11-26 19:51] LABS: BASO % 0.9 % (0.0-1.0); EOS # 0.3 K/mm3 (0.0-0.50); EOS % 5.1 % (0.0-3.0); LARGE UNSTAINED CELL # 0.1 K/mm3 (0.0-0.4); LARGE UNSTAINED CELL % 1.9 % (0.0-4.0); LYMPH # 1.1 K/mm3 (1.5-4.5); LYMPH % 16.6 % (24.0-44.0); MEAN CORPUSCULAR HEMOGLOBIN 33.2 pg (27.0-33.0); MEAN CORPUSCULAR HGB CONC 33.5 g/dl (32.0-36.5); MONO # 0.4 K/mm3 (0.0-0.8); MONO % 7.4 % (0.0-5.0); NEUTROPHILS # 3.9 K/mm3 (1.8-7.7); NEUTROPHILS % 68.1 % (36.0-66.0); PLATELET COUNT, AUTOMATED 145 k/mm3 (150-450); RED CELL DISTRIBUTION WIDTH 12.6 % (11.5-14.5); WHITE BLOOD COUNT 5.7 K/mm3 (4.0-10.0)
[2016-11-26 21:52] LABS: ALBUMIN 3.9 GM/DL (3.2-5.2); ALBUMIN/GLOBULIN RATIO 1.26 (1.00-1.93); ALKALINE PHOSPHATASE 80 U/L (45-117); ALT/SGPT 20 U/L (12-78); ANION GAP 10 MEQ/L (8-16); AST/SGOT 27 U/L (15-37); BILIRUBIN,TOTAL 0.8 MG/DL (0.2-1.0); BLOOD UREA NITROGEN 15 MG/DL (7-18); CARBON DIOXIDE LEVEL 27 MEQ/L (21-32); CHLORIDE LEVEL 106 MEQ/L (98-107); CHOLESTEROL LEVEL 127 MG/DL (<200); CREATININE FOR GFR 0.56 MG/DL (0.55-1.02); GLOMERULAR FILTRATION RATE > 60.0 (>39); GLUCOSE, FASTING 87 MG/DL (83-110); POTASSIUM SERUM 4.1 MEQ/L (3.5-5.1); SODIUM LEVEL 143 MEQ/L (136-145); TRIGLYCERIDES LEVEL 131 MG/DL (<150)
== END ==
LOC: M SFHCLERA 11:34
PROVIDERS: ATTEND Family Medicine
DX: E11.40 Type 2 diabetes mellitus with diabetic neuropathy, unspecified (principal); E11.69 Type 2 diabetes mellitus with other specified complication

== ENCOUNTER → 2017-02-11 | Outpatient (CLI) | payer MEDICARE ==
--- NOTE | 2017-02-11 12:47 | REP ---
CHEST, TWO VIEWS: Two views of the chest are performed and compared to a prior study of 08/24/2016. No acute infiltrate is seen. The cardiac silhouette is slightly prominent. There is calcification of the thoracic aorta. The mediastinal silhouette is unchanged. There are degenerative changes of the spine. IMPRESSION: No acute infiltrate. Signed by Cooper Garcia MD 02/11/2017 05:03 P
== END ==
LOC: M LRY 12:05
PROVIDERS: ATTEND Family Medicine
DX: J44.9 Chronic obstructive pulmonary disease, unspecified (principal)
CPT/HCPCS: 71020; G0463

== ENCOUNTER → 2017-03-14 | Outpatient (REF) | payer MEDICARE | LOC: M SFHCLERA 10:03 | PROVIDERS: ATTEND Family Medicine | DX: E11.9 Type 2 diabetes mellitus without complications (principal) ==

== ENCOUNTER → 2017-06-30 | Outpatient (CLI) | payer MEDICARE | LOC: M LRY 12:35 | DX: C34.91 Malignant neoplasm of unspecified part of right bronchus or lung (principal); J44.9 Chronic obstructive pulmonary disease, unspecified; R05 Cough | CPT/HCPCS: 71046; G0463 ==

== ENCOUNTER → 2017-07-25 | Outpatient (CLI) | payer MEDICARE ==
[2017-07-25 11:59] LABS: HEMATOCRIT 36.6 % (36.0-47.0); HEMOGLOBIN 11.8 g/dl (12.0-16.0); MEAN CORPUSCULAR HEMOGLOBIN 31.6 pg (27.0-33.0); MEAN CORPUSCULAR HGB CONC 32.2 g/dl (32.0-36.5); MEAN CORPUSCULAR VOLUME 98.1 fl (80.0-96.0); PLATELET COUNT, AUTOMATED 190 10^3/uL (150-450); RED BLOOD COUNT 3.73 10^6/uL (4.00-5.40); RED CELL DISTRIBUTION WIDTH 12.8 % (11.5-14.5); WHITE BLOOD COUNT 5.5 10^3/uL (4.0-10.0)
[2017-07-25 12:13] LABS: ALBUMIN 3.5 GM/DL (3.2-5.2); ALBUMIN/GLOBULIN RATIO 1.21 (1.00-1.93); ALKALINE PHOSPHATASE 85 U/L (45-117); ALT/SGPT 18 U/L (12-78); ANION GAP 7 MEQ/L (8-16); AST/SGOT 12 U/L (7-37); BILIRUBIN,TOTAL 0.5 MG/DL (0.2-1.0); BLOOD UREA NITROGEN 14 MG/DL (7-18); CALCIUM LEVEL 8.8 MG/DL (8.8-10.2); CARBON DIOXIDE LEVEL 32 MEQ/L (21-32); CHLORIDE LEVEL 104 MEQ/L (98-107); CREATININE FOR GFR 0.52 MG/DL (0.55-1.30); GLOMERULAR FILTRATION RATE > 60.0 (>39); GLUCOSE, FASTING 198 MG/DL (70-100); POTASSIUM SERUM 3.6 MEQ/L (3.5-5.1); SODIUM LEVEL 143 MEQ/L (136-145); TOTAL PROTEIN 6.4 GM/DL (6.4-8.2)
== END ==
LOC: M LRY 09:18
DX: I48.2 Chronic atrial fibrillation (principal); I11.0 Hypertensive heart disease with heart failure; I50.32 Chronic diastolic (congestive) heart failure
CPT/HCPCS: 80053

== ENCOUNTER → 2017-09-27 | Outpatient (REF) | payer MEDICARE ==
[2017-09-27 12:46] LABS: ESTIMATED AVERAGE GLUCOSE 126 MG/DL (60-110)
[2017-09-27 12:54] LABS: CREATININE, URINE 76.6 MG/DL; MALB URINE SIEMENS 6.4 MG/L; MAU/CREAT RATIO 8.3 MCG/MG (0.0-30.0)
== END ==
LOC: M SFHCLERA 09:05
DX: E11.9 Type 2 diabetes mellitus without complications (principal)
CPT/HCPCS: 83036

== ENCOUNTER → 2018-04-03 | Outpatient (REF) | payer MEDICARE ==
[2018-04-03 12:16] LABS: ANION GAP 6 MEQ/L (8-16); BLOOD UREA NITROGEN 13 MG/DL (7-18); CALCIUM LEVEL 9.3 MG/DL (8.8-10.2); CARBON DIOXIDE LEVEL 31 MEQ/L (21-32); CHLORIDE LEVEL 103 MEQ/L (98-107); CHOLESTEROL LEVEL 100 MG/DL (<200); CHOLESTEROL RISK RATIO 2.325 (<5); CREATININE FOR GFR 0.52 MG/DL (0.55-1.30); GLOMERULAR FILTRATION RATE > 60.0 (>39); GLUCOSE, FASTING 98 MG/DL (70-100); HDL CHOLESTEROL 43 MG/DL (>40); LDL CHOLESTEROL 37 MG/DL (<100); NON-HDL-C 57 MG/DL; SODIUM LEVEL 140 MEQ/L (136-145); TRIGLYCERIDES LEVEL 99 MG/DL (<150)
[2018-04-03 12:41] LABS: ESTIMATED AVERAGE GLUCOSE 126 MG/DL (60-110)
== END ==
LOC: M SFHCLERA 08:45
DX: E11.9 Type 2 diabetes mellitus without complications (principal); E78.2 Mixed hyperlipidemia
CPT/HCPCS: 83036

== ENCOUNTER 2018-06-28 13:11 | Emergency (ER) | payer MEDICARE ==
[~2018-06-28] VITALS: Ht 152.4 cm; Wt 74.5 kg
[~2018-06-28 13:11] MED LIST changes: -GABA-283 PO; +GABA-845 PO; +KLOR10TA76 PO; -POTA10CA PO
[2018-06-28] MEDS ORDERED: INCR1INH IN (13:42)
--- NOTE | 2018-06-28 13:43 | REP ---
Clinical: Right hip pain. Technique: Frontal view of the pelvis with neutral and frog lateral views of the right hip. Findings: Diffuse arthritic changes of the pelvis and hips noted. No acute fracture dislocation. Peripheral vascular disease. Impression: Moderate diffuse arthritic degenerative changes. No acute fracture dislocation. Electronically Signed by Mathew Sparks MD 06/28/2018 01:34 P
[2018-06-28] MEDS ORDERED: PREDOPD OP (13:44)
[2018-06-28] MEDS ORDERED: SIMB1SUS OS (13:44)
[2018-06-28 13:50] VITALS: BP 152/75
[2018-06-28] MEDS ORDERED: CELE100C PO (14:12)
== END 2018-06-28 14:43 | disposition home or self-care (01) ==
LOC: M ED 13:11
DX: M16.11 Unilateral primary osteoarthritis, right hip (principal); I10 Essential (primary) hypertension; E78.5 Hyperlipidemia, unspecified; Z79.899 Other long term (current) drug therapy

== ENCOUNTER → 2019-02-02 | Outpatient (REF) | payer MEDICARE ==
[~2019-02-02] MED LIST changes: +CELE100C PO; +INCR1INH IN; +PREDOPD OP; +SIMB1SUS OS
[2019-02-02 17:11] LABS: BLOOD UREA NITROGEN 15 MG/DL (7-18); CALCIUM LEVEL 8.9 MG/DL (8.8-10.2); CARBON DIOXIDE LEVEL 30 MEQ/L (21-32); CHLORIDE LEVEL 102 MEQ/L (98-107); CHOLESTEROL LEVEL 116 MG/DL (<200); CHOLESTEROL RISK RATIO 2.974 (<5); CREATININE FOR GFR 0.53 MG/DL (0.55-1.30); GLOMERULAR FILTRATION RATE > 60.0 (>39); GLUCOSE, FASTING 89 MG/DL (70-100); HDL CHOLESTEROL 39 MG/DL (>40); LDL CHOLESTEROL 47 MG/DL (<100); NON-HDL-C 77 MG/DL; POTASSIUM SERUM 4.2 MEQ/L (3.5-5.1); SODIUM LEVEL 141 MEQ/L (136-145); TRIGLYCERIDES LEVEL 149 MG/DL (<150)
[2019-02-02 17:22] LABS: BASO # 0.1 10^3/uL (0.0-0.2); BASO % 0.9 % (0.0-1.0); EOS # 0.6 10^3/uL (0.0-0.5); EOS % 7.6 % (0.0-3.0); HEMATOCRIT 39.4 % (36.0-47.0); HEMOGLOBIN 12.9 g/dl (12.0-15.5); LYMPH # 1.9 10^3/uL (1.5-5.0); LYMPH % 24.5 % (24.0-44.0); MEAN CORPUSCULAR HEMOGLOBIN 32.9 pg (27.0-33.0); MEAN CORPUSCULAR HGB CONC 32.7 g/dl (32.0-36.5); MEAN CORPUSCULAR VOLUME 100.5 fl (80.0-96.0); MONO # 0.6 10^3/uL (0.0-0.8); MONO % 8.4 % (0.0-5.0); NEUTROPHILS # 4.5 10^3/uL (1.5-8.5); NEUTROPHILS % 58.3 % (36.0-66.0); PLATELET COUNT, AUTOMATED 200 10^3/uL (150-450); RED BLOOD COUNT 3.92 10^6/uL (4.00-5.40); WHITE BLOOD COUNT 7.7 10^3/uL (4.0-10.0)
[2019-02-02 17:39] LABS: MALB URINE SIEMENS 12.1 MG/L
[2019-02-02 18:11] LABS: HEMOGLOBIN A1c 5.8 %
== END ==
LOC: M SFHCLERA 10:20
PROVIDERS: ATTEND Family Medicine
DX: E11.9 Type 2 diabetes mellitus without complications (principal)

== ENCOUNTER → 2019-02-03 | Outpatient (REF) | payer MEDICARE ==
[~2019-02-03] MED LIST changes: -FENO48TA2 PO; +FENO48TA7 PO; -GLIM2TAB PO; +GLIM2TAB4 PO
== END ==
LOC: M SFHCLERA 09:49
PROVIDERS: ATTEND Family Medicine
DX: E11.9 Type 2 diabetes mellitus without complications (principal); D75.89 Other specified diseases of blood and blood-forming organs; Z53.8 Procedure and treatment not carried out for other reasons

== ENCOUNTER → 2019-02-04 | Outpatient (REF) | payer MEDICARE ==
[~2019-02-04] MED LIST changes: +FENO48TA2 PO; -FENO48TA7 PO; +GLIM2TAB PO; -GLIM2TAB4 PO
[2019-02-04 11:42] LABS: FOLATE > 24.0 NG/ML; VITAMIN B12 LEVEL 313 PG/ML
== END ==
LOC: M SFHCLERA 09:39
PROVIDERS: ATTEND Family Medicine
DX: E11.9 Type 2 diabetes mellitus without complications (principal); D75.89 Other specified diseases of blood and blood-forming organs

== ENCOUNTER → 2019-03-06 | Outpatient (REF) | payer MEDICARE ==
[2019-03-10 14:40] LABS: HOMOCYST(E)INE SERUM 9.3 umol/L (0.0-15.0)
== END ==
LOC: M SFHCLERA 09:15
PROVIDERS: ATTEND Family Medicine
DX: D75.89 Other specified diseases of blood and blood-forming organs (principal)

== ENCOUNTER → 2019-05-05 | Outpatient (REF) | payer MEDICARE ==
[~2019-05-05] MED LIST changes: +FENO48TA13 PO; -FENO48TA2 PO; -GLIM2TAB PO; +GLIM2TAB2 PO
[2019-05-05 13:07] LABS: HEMOGLOBIN A1c 6.7 %
== END ==
LOC: M SFHCLERA 09:50
PROVIDERS: ATTEND Family Medicine
DX: E11.9 Type 2 diabetes mellitus without complications (principal)
CPT/HCPCS: 83036; G0463

== ENCOUNTER 2019-07-11 15:07 | Observation (INO) | payer MEDICARE ==
[~2019-07-11] VITALS: Ht 154.9 cm; Wt 68.6 kg
[~2019-07-11 15:07] MED LIST changes: -FENO48TA13 PO; +FENO48TA7 PO; -GLIM2TAB2 PO; +GLIM2TAB4 PO; -SIMB1SUS OS; +SIMB1SUS OU
[2019-07-11 15:41] LABS: BASO # 0.1 10^3/uL (0.0-0.2); BASO % 0.8 % (0.0-1.0); EOS # 0.1 10^3/uL (0.0-0.5); EOS % 1.8 % (0.0-3.0); HEMATOCRIT 38.4 % (36.0-47.0); HEMOGLOBIN 12.9 g/dl (12.0-15.5); LYMPH # 1.7 10^3/uL (1.5-5.0); LYMPH % 21.2 % (24.0-44.0); MEAN CORPUSCULAR HEMOGLOBIN 33.2 pg (27.0-33.0); MEAN CORPUSCULAR HGB CONC 33.6 g/dl (32.0-36.5); MONO # 0.7 10^3/uL (0.0-0.8); MONO % 8.3 % (0.0-5.0); NEUTROPHILS # 5.3 10^3/uL (1.5-8.5); NEUTROPHILS % 67.6 % (36.0-66.0); PLATELET COUNT, AUTOMATED 246 10^3/uL (150-450); RED BLOOD COUNT 3.88 10^6/uL (4.00-5.40); WHITE BLOOD COUNT 7.8 10^3/uL (4.0-10.0)
[2019-07-11] MEDS ORDERED: LOSA50TA88 PO (15:44)
[2019-07-11] MEDS ORDERED: CHLO125TA PO (15:44)
[2019-07-11] MEDS ORDERED: HAIR1CHW PO (15:45)
[2019-07-11] MEDS ORDERED: BIOT1CAP2 PO (15:45)
[2019-07-11] MEDS ORDERED: CVS5000S2 PO (15:45)
[2019-07-11 15:56] LABS: INR 1.42; PROTHROMBIN TIME 17.1 SECONDS (11.8-14.0)
[2019-07-11 15:57] LABS: PARTIAL THROMBOPLASTIN TIME 31.4 SECONDS (25.0-38.4)
[2019-07-11 16:18] LABS: ALBUMIN 3.6 GM/DL (3.2-5.2); ALT/SGPT 26 U/L (12-78); BILIRUBIN,DIRECT 0.2 MG/DL (0.0-0.2); BILIRUBIN,TOTAL 0.6 MG/DL (0.2-1.0); LIPASE 99 U/L (73-393)
[2019-07-11] MEDS ORDERED: [UNRECOGNIZED DRUG - CODE] PO (16:51)
[2019-07-11] MEDS ORDERED: GABA-1171 PO (16:51)
[2019-07-11] MEDS ORDERED: BREO1INH3 INH (16:51)
[2019-07-11] MEDS ORDERED: D-101000 PO (16:51)
[2019-07-11] MEDS ORDERED: ATOR40TA75 PO (16:51)
[2019-07-11] MEDS ORDERED: DILT180C28 PO (16:51)
[2019-07-11] MEDS ORDERED: INCR1INH INH (16:51)
--- NOTE | 2019-07-11 17:06 | REP ---
Clinical: Cough. Technique: PA and lateral. Comparison: 06/30/2017. Findings: Mediastinum and cardiac silhouette are within normal limits and stable. The lung cameron demonstrate diffuse chronic interstitial changes. No effusion or pneumothorax. Skeletal structures are intact. There is a new area of opacity in the right mid lung zone with suggestions for spiculation. Impression: Relatively new area of opacity in the right mid lung zone. Differential diagnosis would include scarring as well as active pathology. Chest CT with contrast is recommended for further investigation. Electronically Signed by Mathew Sparks MD 07/11/2019 04:57 P
[2019-07-11] MEDS ORDERED: ISOVUE-370 76% 100ML VIAL (Q9967) As Ordered ONE (17:22)
[2019-07-11] MEDS ORDERED: ACETAMINOPHEN TAB 650MG DOSE (2X325MG) PO PRN (17:30)
[2019-07-11 17:49] LABS: CPK CREATINE PHOSPHOKINASE 51 U/L (26-192); MB/CK RELATIVE INDEX 1.96 (< OR =4); TROPONIN I < 0.02 NG/ML (< 0.10)
[2019-07-11] MEDS ORDERED: RIVAROXABAN 20 MG TAB (XARELTO) PO SCH (18:00)
--- NOTE | 2019-07-11 18:27 | REPVR ---
PROCEDURE INFORMATION: Exam: CT Chest With Contrast Exam date and time: 07/11/2019 5:37 PM Age: 79 years old Clinical indication: Abnormal findings; Abnormal radiologic exam of lung or chest; Additional info: New lung opacity TECHNIQUE: Imaging protocol: Computed tomography of the chest with intravenous contrast. 3D rendering: MIP and/or 3D reconstructed images were created by the technologist. Radiation optimization: All CT scans at this facility use at least one of these dose optimization techniques: automated exposure control; mA and/or kV adjustment per patient size (includes targeted exams where dose is matched to clinical indication); or iterative reconstruction. Contrast material: ISOVUE 370; Contrast volume: 75 ml; Contrast route: IV; COMPARISON: CT Chest with contrast 08/24/2016 12:22 PM FINDINGS: Thyroid: 11 mm hypodense right thyroid lobe lesion, which warrants no followup imaging. Lungs: New spiculated nodular opacity in the right upper and lower lobes, on either side major fissure. This measures approximately 3.4 cm x 2.0 cm. This is new since the prior CT. On the prior CT, there was a right upper lobe nodule located slightly posterior to the current abnormality. Calcified right middle lobe granuloma. Mild consolidation in the dependent left lower lobe and lingula, favored to represent atelectasis. Moderate bilateral panlobular emphysematous changes. Pleural space: Unremarkable. No pneumothorax. No pleural effusion. Heart: Prominent coronary artery calcifications. Aorta: Mild atherosclerotic change of the thoracic aorta. Lymph nodes: Mildly prominent right hilar lymph nodes, measuring up to 13 mm in short axis dimension, unchanged. Mildly prominent mediastinal lymph nodes, measuring up to 10 mm in short axis dimension, slightly increased in size. Gallbladder and bile ducts: There has been a cholecystectomy. Unchanged prominence of the extrahepatic duct. Bones/joints: Degenerative change of the spine. Chronic rib fracture deformities. Soft tissues: Unremarkable. IMPRESSION: 1. New spiculated somewhat nodular opacity along the right major fissure. This is favored to represent scarring, but a neoplasm cannot be fully excluded. Recommend further evaluation with tissue sampling or PET/CT. 2. Prominent coronary artery calcifications. 3. Moderate emphysematous changes. 4. Mildly prominent right hilar and mediastinal lymph nodes. COMMENT: Consistent with the [employer]'s Incidental Findings Committee white paper (J Am Laurel Radiol 2015): In patients aged 35 years and older with an incidental thyroid nodule equal to or greater than 1.[address], MRI or extrathyroidal US, further evaluation with dedicated thyroid US is recommended for patients with normal life expectancy and without comorbidities. For smaller nodules without suspicious features, no further evaluation or follow up is recommended. Electronically signed by: Hoda Hays On 07/11/2019 18:27:20 PM
[2019-07-11 19:00] VITALS: BP 114/63
[2019-07-11 20:04] LABS: HEMATOCRIT 40.6 % (36.0-47.0); HEMOGLOBIN 13.4 g/dl (12.0-15.5)
--- NOTE | 2019-07-11 20:08 | HPEPDOC ---
General Date of Admission Jul 11, 2019 at 15:08 Date of Service: Jul 11, 2019 Primary Care Physician: KENYATTA ALDRICH MD Attending Physician: SHEILA SCHERER MD Chief Complaint The patient is a 79-year-old female admitted with a reason for visit of Diverticular Hemorrage. 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 Ott in [place], persistent A. fib chronically on Xarelto, COPD chronic on 2 L nasal cannula. She comes in for worsening bright red blood per rectum. She reports this is been ongoing intermittently over the past 5 years but it was not that bothersome until about a week ago. She reports she had her last colonoscopy done a few years ago unable to find source of bleed. We do not have any records. She reports normally he was bleeding about a teaspoon about 2 times a week and only with bowel movements, and now it has been about a tablespoon on a daily basis, leaking blood even at rest. Denies any nausea, vomiting, weight loss, fever, chills, abdominal pain. Denies frequent straining or loss of appetite. No other GI complaints. Does admit to history of hemorrhoids that often bleed, however denies any other GI history of bleeding. She reports she has never had to stop her anticoagulation due to bleeding issues, even though this has been ongoing the past 5 years. Denies any recent changes in medications or travel. She also reports dry cough she has had for the past week as well but she states this is getting better. She states her hairdresser was sick with similar symptoms a few days prior to the patient's own symptoms onset. Dry cough with rhinorrhea and postnasal drip that is improving with fwyw-ozw-soxbdcr medicine. Denies sore throat, watery itchy eyes, fever, rash. Denies chest pain or shortness of breath. Is noted to be satting well on her baseline oxygen in the ER, not in any distress. In ER: Hemoglobin was normal at 12, patient otherwise stable. Also noted new spiculated lesion in the right lung on imaging. Will be admitted for observation and trend blood levels. PMH: Emphysema chronically on 2 L nasal cannula Pulmonary hypertension Hypertension Type 2 diabetes with diabetic neuropathy A. fib chronic on Xarelto Raynaud's syndrome Sleep apnea Depression Glaucoma Chronic diastolic heart failure CAD S/P catheterization 2017 Hyperlipidemia Rosacea Past Surgical Hx: D&C Hysterectomy Breast biopsies Cholecystectomy Cataract surgery Foot surgery Family Hx: Mother and sister with lung cancer Multiple siblings with heart disease Social Hx: Smoked one half pack per day since her teenage years. Quit tobacco 15 years ago. Denies any alcohol. Retired currently. 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 Admits dry cough that is resolving Cardiac: Denies chest pain, palpitations, orthopnea, PND, edema, lightheadedness GI: Denies nausea, vomiting, abdominal pain, constipation, melena, hematochezia. Admits to bright red blood per rectum and chronic diarrhea : Denies dysuria, hematuria, retention MSK: Denies new pains or weakness Neurologic: Denies new numbness/tingling PHYSICAL: General exam: A&Ox3, NAD, resting comfortably at her baseline 2 L nasal cannula HEENT: NCAT, EOMI, neck supple, anicteric sclera, moist mucous membranes Cardiac: Irregular rhythm, rate controlled, normal S1 & S2, no murmurs Respiratory: diminished sounds on the bases with mild rhonchi on the left base, no other adventitious sounds, equal chest rise bilaterally, no accessory muscle use or signs of respiratory distress Abdomen: soft, NT, ND, normoactive bowel sounds, no masses : Rectal exam done with lathe puller nurse in the room: Large hemorrhoid noted on exterior anus, no visible blood, negative stool occult done at bedside. Rectal tone intact, nontender to palpation. No noted fissures or fistulas Extremity: 2+ radial pulses bilaterally, no edema or calf tenderness Skin: Morris, warm, dry, no visible rash Msk: strength 5/5 x4, normal tone Neuro: normal speech, no focal deficits Psych: Normal mood and affect LABORATORY DATA, MICROBIOLOGY: Please see below. IMAGING STUDIES: Chest x-ray: Relatively new area of opacity in the right mid lung zone. Differential diagnosis would include scarring as well as active pathology. Chest CT with contrast is recommended for further investigation. ASSESSMENT AND PLAN: This is a 79-year-old female with extensive past medical history presenting for worsening bright red blood per rectum. She has had this for the past 5 years intermittently, but now increased frequency and quantity: Tablespoon almost on a daily basis and leaking blood even at rest. Hemoglobin normal on admission and hemodynamically stable. Also concern for a new spiculated lesion in this patient who has a history of poorly differentiated right upper lobe squamous carcinoma S/P1 dose radiation in 2017, found to be poor candidate for lobectomy. 1. Bright red blood per rectum This has been ongoing intermittently and chronic for the patient for the past 5 years, but never required cessation of her chronic Xarelto. She is hemodynamically stable with normal hemoglobin. Rectal exam showed no visible blood and Hemoccult was negative. We'll trend H&H every 6h, clear liquid diet. She does have a large external hemorrhoid and per the patient a history of hemorrhoidal bleeding. She also denies any prior GI bleed, transfusion requirement, or abnormal colonoscopy. She reports she has never had to come off of her anticoagulation despite her rectal bleeding for the past 5 years. Given all the above, it is less likely that she has a major acute bleed. Suspicion is highest for hemorrhoidal bleed. This was discussed with the patient, including risks and benefits of continuing/stopping anticoagulation, and they're in agreement of monitoring blood levels closely and continue her Xarelto at this point. If hemoglobin drops, stock Xarelto transfuse as needed to maintain hemoglobin above 8. 2. Cough, likely URTI Patient reports symptoms are resolving and is hemodynamically stable. Afebrile. Less likely infectious or a COPD exacerbation. No leukocytosis. Clinical picture appears to be viral, possibly a common cold that is now resolving. She is at her baseline 2 L nasal cannula. Continue monitoring. Supportive care. 3. New lung opacity, concern for malignancy She has a history of lung cancer S/P 1 dose SBRT in [address] [place] [address] Ott. She reports they have been monitoring her with frequent imaging every 3-6 months ever since, most recently was about 3 months ago has not metastasized per the patient. We'll need to obtain these records. Chest CT ordered No changes to the remaining of her chronic medical conditions as noted above. DVT prophylaxis: Chronically on Xarelto DISPOSITION: Admit to hospitalist service for observation. Monitor H&H with continued anticoagulation. Likely DC home 24-48 hours. Home Medications Scheduled Ascorbic Acid/Vitamin E/Biotin (Hair Skin Nails-Biotin Gummies) 1 Each Tab.chew, 1 CHW PO DAILY, (Reported) Atorvastatin Calcium (Atorvastatin Calcium) 40 Mg Tablet, 40 MG PO QHS, (Reported) Biotin (Biotin) 5 Mg Capsule, 5,000 MCG PO DAILY, (Reported) Brinzolamide/Brimonidine Tart (Simbrinza 1%-0.2% Eye Drops) 1 Stefania Stefania, 1 DROP OU BID, (Reported) Chlorthalidone (Chlorthalidone) 25 Mg Tablet, 12.5 MG PO DAILY, (Reported) Cholecalciferol (Vitamin D3) (Vitamin D3) 25 Mcg Capsule, 25 MCG PO DAILY, (Reported) Cyanocobalamin (Vitamin B-12) (Vitamin B12) 5,000 Mcg Tab.rapdis, 5,000 MCG PO DAILY, (Reported) Diltiazem HCl (Dilt-Xr) 180 Mg Cap.er.deg, 180 MG PO DAILY, (Reported) Docusate Sodium (Stool Softener) 100 Mg Capsule, 1 CAP PO BID Fluticasone/Vilanterol (Breo Ellipta 200-25 Mcg INH) 1 Each Blst.w.dev, 1 PUFF INH DAILY, (Reported) Gabapentin (Gabapentin) 100 Mg Capsule, 100 MG PO BID, (Reported) Losartan Potassium (Losartan Potassium) 50 Mg Tablet, 50 MG PO DAILY, (Reported) Metformin HCl (Metformin HCl) 1,000 Mg Tab, 1,000 MG PO BID, (Reported) Multivitamins (Thera M Plus Tablet) 1 Tab Tab, 1 TAB PO DAILY, (Reported) Potassium Chloride (Klor-Con M10) 10 Meq Tabcr, 10 MEQ PO DAILY, (Reported) Rivaroxaban (Xarelto) 20 Mg Tab, 20 MG PO QPM, (Reported) Umeclidinium [place] (Incruse Ellipta) 62.5 Mcg Blst.w.dev, 62.5 MCG INH DAILY, (Reported) Scheduled PRN Albuterol Sulfate (Proair Hfa) 108 Mcg/Act Aer, 2 PUFF INH Q4H PRN for SHORTNESS OF BREATH, (Reported) Nitroglycerin (Nitroglycerin) 0.4 Mg Sub, 0.4 MG SL NITRO PRN for ANGINA, (Reported) Allergies Coded Allergies: No Known Allergies (Unverified , 07/11/19) A-FIB/CHADSVASC A-FIB History Current/History of A-Fib/PAF?: Yes Current PO Anticoag Therapy: Yes Vital Signs Vital Signs Date Time Temp Pulse Resp B/P (MAP) Pulse Ox O2 Delivery O2 Flow Rate FiO2 07/11/19 19:00 98.8 69 18 114/63 (80) 89 Nasal Cannula 2.0 Laboratory Data Labs 24H Laboratory Tests 2 07/11/19 15:35: Immature Granulocyte % (Auto) 0.3, Neutrophils (%) (Auto) 67.6H, Lymphocytes (%) (Auto) 21.2L, Monocytes (%) (Auto) 8.3H, Eosinophils (%) (Auto) 1.8, Basophils (%) (Auto) 0.8, Neutrophils # (Auto) 5.3, Lymphocytes # (Auto) 1.7, Monocytes # (Auto) 0.7, Eosinophils # (Auto) 0.1, Basophils # (Auto) 0.1, Nucleated Red Blood Cells % (auto) 0.0, Prothrombin Time 17.1H, Prothromb Time International Ratio 1.42, Activated Partial Thromboplast Time 31.4, Total Bilirubin 0.6, Direct Bilirubin 0.2, Aspartate Amino Transf (AST/SGOT) 25, Alanine Aminotransf erase (ALT/SGPT) 26, Alkaline Phosphatase 85, Total Creatine Kinase 51, Creatine Kinase MB 1.0, Creatine Kinase MB Relative Index 1.96, Troponin I < 0.02, Total Protein 7.0, Albumin 3.6, Albumin/Globulin Ratio 1.06, Lipase 99 07/11/19 15:38: POC Glucose (Misc Panel) 221H, POC Sodium (Misc Panel) 139, POC Potassium (Misc Panel) 3.2L, POC Chloride (Misc Panel) 100, POC Total CO2 (Misc Panel) 28.0H, POC Blood Urea Nitrogen (Misc Panel 13, POC Ionized Calcium (Misc Panel) 4.9, P OC Creatinine (Misc Panel) 0.4L, POC Hematocrit (Misc Panel) 39.0 CBC/BMP Laboratory Tests 07/11/19 15:35 Microbiology Microbiology 07/11/19 Respiratory Virus Panel (PCR) (ROMELIA) - Final, Complete Plan / VTE VTE Prophylaxis Ordered?: Yes GME ATTESTATION GME ATTESTATION My faculty preceptor for this patient encounter was physically present during the encounter and was fully available. All aspects of the patient interview, examination, medical decision making process, and medical care plan development were reviewed and approved by the faculty preceptor. The faculty preceptor is aware and concurs with the plan as stated in the body of this note and will attest to such by his/her cosignature. ATTENDING NOTE I, Sheila Scherer, have independently examined this patient and performed my own physical exam, as well as reviewed the documentation and edited where necessary. I have discussed in detail with the resident / student the findings and plan of treatment as documented by the resident / student and edited their note. I agree with their findings and treatment plan and have edited their documentation. I will continue to follow the patient during this hospital stay. NAHUM MATAMOROS DO Jul 11, 2019 20:08 SHEILA SCHERER MD Jul 13, 2019 15:57
[2019-07-11] MEDS ORDERED: GLUCOSE 4 GM CHEW TABLET PO PRN (20:15)
[2019-07-11] MEDS ORDERED: DEXTROSE 50% 50 ML SYRINGE IV PRN (20:15)
[2019-07-11] MEDS ORDERED: GLUCAGON FOR INJ 1 MG VIAL (J1610) SC PRN (20:15)
[2019-07-11] MEDS ORDERED: HumaLOG INSULIN (NovoLOG) PER UNIT SC SCH (21:00)
[2019-07-11] MEDS ORDERED: ATORVASTATIN 20 MG TAB PO SCH (21:00)
[2019-07-11] MEDS: GABAPENTIN 100 MG CAP PO SCH (21:22)
[2019-07-11 22:00] VITALS: BP 150/72
[2019-07-12] MEDS ORDERED: ACETAMINOPHEN TAB 650MG DOSE (2X325MG) PO PRN (02:15)
[2019-07-12 05:34] VITALS: BP_SYST 133; BP_SYST 134; BP_SYST 136; BP_DIAS 70; BP_DIAS 76
--- NOTE | 2019-07-12 05:45 | ECGEPIP ---
[facility] - ED Test Date: 2019-07-11 Pat Name: BARRY JACOBO Department: Room: - Gender: Female Editor House Organ: lalitokaterin : 1940 Requested By: Benny Esqueda Order Number: [id number] Reading MD: Benny Akers Measurements Intervals [place] Rate: 71 P: MO: 0 QRS: 89 QRSD: 88 T: 26 QT: 316 QTc: 344 Interpretive Statements ATRIAL FIBRILLATION LOW QRS VOLTAGE IN EXTREMITY LEADS ANTEROSEPTAL MYOCARDIAL INFARCTION, PROBABLY OLD SIMILAR TO 08/24/16 Electronically Signed on 07-12-2019 5:45:24 EST by Benny Akers
[2019-07-12 07:09] LABS: HEMATOCRIT 36.2 % (36.0-47.0); HEMOGLOBIN 12.1 g/dl (12.0-15.5); MEAN CORPUSCULAR HEMOGLOBIN 33.5 pg (27.0-33.0); MEAN CORPUSCULAR HGB CONC 33.4 g/dl (32.0-36.5); MEAN CORPUSCULAR VOLUME 100.3 fl (80.0-96.0); PLATELET COUNT, AUTOMATED 225 10^3/uL (150-450); RED BLOOD COUNT 3.61 10^6/uL (4.00-5.40); WHITE BLOOD COUNT 6.3 10^3/uL (4.0-10.0)
[2019-07-12 07:27] LABS: BLOOD UREA NITROGEN 10 MG/DL (7-18); CALCIUM LEVEL 9.5 MG/DL (8.8-10.2); CARBON DIOXIDE LEVEL 32 MEQ/L (21-32); CHLORIDE LEVEL 104 MEQ/L (98-107); CREATININE FOR GFR 0.49 MG/DL (0.55-1.30); GLOMERULAR FILTRATION RATE > 60.0 (>39); GLUCOSE, FASTING 126 MG/DL (70-100); POTASSIUM SERUM 3.3 MEQ/L (3.5-5.1); SODIUM LEVEL 142 MEQ/L (136-145)
[2019-07-12] MEDS ORDERED: HumaLOG INSULIN (NovoLOG) PER UNIT SC SCH (07:30)
[2019-07-12 07:46] VITALS: BP 136/76
[2019-07-12] MEDS: GABAPENTIN 100 MG CAP PO SCH (07:46)
[2019-07-12] MEDS ORDERED: MM S100C PO (08:51)
[2019-07-12] MEDS ORDERED: LOSARTAN 50 MG TAB PO SCH (09:00)
[2019-07-12] MEDS ORDERED: POTASSIUM CHLORIDE 10 MEQ SR TABLET PO SCH (09:00)
[2019-07-12] MEDS ORDERED: MULTIVITAMINS/MINERALS THERAP 1 TAB PO SCH (09:00)
[2019-07-12] MEDS ORDERED: POTASSIUM CHLORIDE 10 MEQ SR TABLET PO ONE ×2 (09:00)
[2019-07-12] MEDS ORDERED: diltiaZEM **CD** 180 MG CAP PO SCH (09:00)
[2019-07-12] MEDS ORDERED: CHLORTHALIDONE 12.5MG PER 1/2 TABLET PO SCH (09:00)
--- NOTE | 2019-07-12 12:41 | DS.PDOC ---
Discharge Summary General Date of Admission Jul 11, 2019 at 15:08 Date of Discharge 07/12/2019 Discharge Summary PROCEDURES PERFORMED DURING STAY: [None]. ADMITTING DIAGNOSES / DISCHARGE DIAGNOSES: Bright red blood per rectum Cough - likely URTI, possibly 2/2 underlying malignancy Lung malignancy Emphysema / Chronic hypoxic respiratory failure Pulmonary hypertension Hypertension Type 2 diabetes with diabetic neuropathy A. 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 Ott in [place]), persistent A. fib chronically on Xarelto, COPD chronic on 2 L nasal cannula. Patient presented to the emergency room with complaints of shortness of breath; this was suspected to be secondary to upper respiratory tract infection. Patient had also reported bright red bleeding per rectum intermittently. Patient was admitted to hospitalist service for further evaluation and treatment of her bright right red rectal bleeding. Patient was admitted for 24 hours and her hemoglobin has remained stable. She is no longer experience any further episodes of rectal bleeding. Rectal exam has revealed significant internal and external hemorrhoids. Patient does have a internal audit director that she visits as an outpatient. Patient has been advised to follow-up with her internal audit director for further evaluation and treatment of her hemorrhoids. On admission. Patient had an x-ray completed that had revealed possibility of right middle lobe opacification post follow-up by CT scan of her chest. CT of her chest had revealed a new spiculated, somewhat nodular opacification along the right major fissure. This is favored to represent scarring, but a neoplasm cannot be fully excluded. It was recommended to pursue PET/CT. . The findings of this imaging were noted to the patient and daughter. They have indicated that their oncologist, Dr. Uche Ott in [place] has been following him for a right lung lesion, and they have recently received imaging most recent of which was 2 months prior. Patient has been advised to follow up with their oncologist for further evaluation and treatment given this imaging finding. Patient has been poor for discharge and has been advised to follow-up with her primary care provider as well as oncology, Dr. Uche Ott in [place] within 7 days. DISCHARGE MEDICATIONS: Please see below. ALLERGIES: Please see below. PHYSICAL EXAMINATION ON DISCHARGE: Vitals (See below) General: Lying in bed, no acute distress, comfortable, AAOx3 HEENT: NC, AT CVS: +S1S2 Lungs: Fair air entry b/l, -w/r/r Abdomen: Soft, ND, NT Extremities: - Edema, - Calf tenderness LABORATORY DATA: Please see below. PROGNOSIS: Fair ACTIVITY: [As tolerated]. DISCHARGE PLAN: Follow up with Dr. Ida Puentes and Dr. Jean Carlos Ott ([place], Oncology) within 7 days Remain compliant with treatment plan and medications Return to the ER if you experience any problems DISPOSITION: Home, Self-Care. DISCHARGE CONDITION: [Stable]. TIME SPENT ON DISCHARGE: 35 minutes Vital Signs/I&Os Vital Signs Date Time Temp Pulse Resp B/P (MAP) Pulse Ox O2 Delivery O2 Flow Rate FiO2 07/12/19 08:00 2.0 07/12/19 07:46 79 136/76 07/12/19 06:00 98.0 18 95 Nasal Cannula I&O- Last 24 Hours up to 6 AM 07/12/19 06:00 Intake Total 200 ml Output Total 700 ml Balance -500 ml Laboratory Data Labs 24H Laboratory Tests 2 07/11/19 15:35: Immature Granulocyte % (Auto) 0.3, Neutrophils (%) (Auto) 67.6H, Lymphocytes (%) (Auto) 21.2L, Monocytes (%) (Auto) 8.3H, Eosinophils (%) (Auto) 1.8, Basophils (%) (Auto) 0.8, Neutrophils # (Auto) 5.3, Lymphocytes # (Auto) 1.7, Monocytes # (Auto) 0.7, Eosinophils # (Auto) 0.1, Basophils # (Auto) 0.1, Nucleated Red Blood Cells % (auto) 0.0, Prothrombin Time 17.1H, Prothromb Time International Ratio 1.42, Activated Partial Thromboplast Time 31.4, Total Bilirubin 0.6, Direct Bilirubin 0.2, Aspartate Amino Transf (AST/SGOT) 25, Alanine Aminotransferase (ALT/SGPT) 26, Alkaline Phosphatase 85, Total Creatine Kinase 51, Creatine Kinase MB 1.0, Creatine Kinase MB Relative Index 1.96, Troponin I < 0.02, Total Protein 7.0, Albumin 3.6, Albumin/Globulin Ratio 1.06, Lipase 99 07/11/19 15:38: POC Glucose (Misc Panel) 221H, POC Sodium (Misc Panel) 139, POC Potassium (Misc Panel) 3.2L, POC Chloride (Misc Panel) 100, POC Total CO2 (Misc Panel) 28.0H, POC Blood Urea Nitrogen (Misc Panel 13, POC Ionized Calcium (Misc Panel) 4.9, POC Creatinine (Misc Panel) 0.4L, POC Hematocrit (Misc Panel) 39.0 07/11/19 20:48: Bedside Glucose (Misc Panel) 177H 07/12/19 06:12: Nucleated Red Blood Cells % (auto) 0.0, Anion Gap 6L, Glomerular Filtration Rate > 60.0, Calcium Level 9.5 CBC/BMP Laboratory Tests 07/11/19 15:35 07/11/19 19:57 07/12/19 06:12 FSBS Laboratory Tests Test 07/11/19 20:48 Range/Units Bedside Glucose (Misc Panel) 177 83-110 MG/DL Microbiology Microbiology 07/11/19 Respiratory Virus Panel (PCR) (ROMELIA) - Final, Complete Discharge Medications Scheduled Ascorbic Acid/Vitamin E/Biotin (Hair Skin Nails-Biotin Gummies) 1 Each Tab.chew, 1 CHW PO DAILY, (Reported) Atorvastatin Calcium (Atorvastatin Calcium) 40 Mg Tablet, 40 MG PO QHS, (Reported) Biotin (Biotin) 5 Mg Capsule, 5,000 MCG PO DAILY, (Reported) Brinzolamide/Brimonidine Tart (Simbrinza 1%-0.2% Eye Drops) 1 Stefania Stefania, 1 DROP OU BID, (Reported) Chlorthalidone (Chlorthalidone) 25 Mg Tablet, 12.5 MG PO DAILY, (Reported) Cholecalciferol (Vitamin D3) (Vitamin D3) 25 Mcg Capsule, 25 MCG PO DAILY, (Reported) Cyanocobalamin (Vitamin B-12) (Vitamin B12) 5,000 Mcg Tab.rapdis, 5,000 MCG PO DAILY, (Reported) Diltiazem HCl (Dilt-Xr) 180 Mg Cap.er.deg, 180 MG PO DAILY, (Reported) Docusate Sodium (Stool Softener) 100 Mg Capsule, 1 CAP PO BID Fluticasone/Vilanterol (Breo Ellipta 200-25 Mcg INH) 1 Each Blst.w.dev, 1 PUFF INH DAILY, (Reported) Gabapentin (Gabapentin) 100 Mg Capsule, 100 MG PO BID, (Reported) Losartan Potassium (Losartan Potassium) 50 Mg Tablet, 50 MG PO DAILY, (Reported) Metformin HCl (Metformin HCl) 1,000 Mg Tab, 1,000 MG PO BID, (Reported) Multivitamins (Thera M Plus Tablet) 1 Tab Tab, 1 TAB PO DAILY, (Reported) Potassium Chloride (Klor-Con M10) 10 Meq Tabcr, 10 MEQ PO DAILY, (Reported) Rivaroxaban (Xarelto) 20 Mg Tab, 20 MG PO QPM, (Reported) Umeclidinium [place] (Incruse Ellipta) 62.5 Mcg Blst.w.dev, 62.5 MCG INH DAILY, (Reported) Scheduled PRN Albuterol Sulfate (Proair Hfa) 108 Mcg/Act Aer, 2 PUFF INH Q4H PRN for SHORTNESS OF BREATH, (Reported) Nitroglycerin (Nitroglycerin) 0.4 Mg Sub, 0.4 MG SL NITRO PRN for ANGINA, (Reported) Allergies Coded Allergies: No Known Allergies (Unverified , 07/11/19) SHYAM DUGAN MD Jul 12, 2019 12:41
== END 2019-07-12 10:20 | disposition home or self-care (01) ==
LOC: M ED 15:07 → M ED INP 15:08 → ENRESERVDT 18:11 → ENRESERVTM 18:11 → M MSPAV 18:58
PROVIDERS: ADMIT Internal Medicine; ATTEND Internal Medicine
DX: K62.5 Hemorrhage of anus and rectum (principal); R05 Cough; J43.9 Emphysema, unspecified; J96.11 Chronic respiratory failure with hypoxia; I27.0 Primary pulmonary hypertension; I11.9 Hypertensive heart disease without heart failure; E11.40 Type 2 diabetes mellitus with diabetic neuropathy, unspecified; I48.19 Other persistent atrial fibrillation; Z79.01 Long term (current) use of anticoagulants; I50.32 Chronic diastolic (congestive) heart failure; I25.10 Atherosclerotic heart disease of native coronary artery without angina pectoris; E78.49 Other hyperlipidemia; L71.9 Rosacea, unspecified; G47.30 Sleep apnea, unspecified; I73.00 Raynaud's syndrome without gangrene; Z92.3 Personal history of irradiation; Z85.118 Personal history of other malignant neoplasm of bronchus and lung; Z87.891 Personal history of nicotine dependence; Z99.81 Dependence on supplemental oxygen; Z79.84 Long term (current) use of oral hypoglycemic drugs; Z79.899 Other long term (current) drug therapy
CPT/HCPCS: 36415; 71046; 71260; 80047; 80048; 80076; 82550; 82553; 83690; 84145; 84484; 85014; 85018; 85025; 85027; 85610; 85730; 86850; 86900; 86901; 87486; 87581; 87633; 87798; 93005; 93041; 99285; G0378; Q9967

== ENCOUNTER → 2020-02-19 | Outpatient (CLI) | payer MEDICARE ==
[~2020-02-19] MED LIST changes: +ATOR1TAB21 PO; +ATOR40TA75 PO; +AZIT-12 PO; +BIOT1CAP2 PO; +CHLO125TA PO; -CITRTAB13 PO; +CITRTAB16 PO; +CVS5000S2 PO; +D-101000 PO; +D3-5CAP PO; +DOCU100C16 PO; +DOCU100C17 PO; +GABA-1171 PO; +HAIR1CHW PO; +INCR1INH INH; +LOSA50TA88 PO; +MM S100C PO; +NEUR100C PO; +PRED20TA PO; +[UNRECOGNIZED DRUG - CODE] PO
[2020-02-19 13:01] LABS: BASO # 0.1 10^3/uL (0.0-0.2); BASO % 0.9 % (0.0-1.0); EOS # 0.3 10^3/uL (0.0-0.5); EOS % 3.7 % (0.0-3.0); HEMATOCRIT 38.4 % (36.0-47.0); HEMOGLOBIN 12.6 g/dl (12.0-15.5); LYMPH # 1.8 10^3/uL (1.5-5.0); LYMPH % 24.1 % (24.0-44.0); MEAN CORPUSCULAR HEMOGLOBIN 33.4 pg (27.0-33.0); MEAN CORPUSCULAR HGB CONC 32.8 g/dl (32.0-36.5); MEAN CORPUSCULAR VOLUME 101.9 fl (80.0-96.0); MONO # 0.7 10^3/uL (0.0-0.8); MONO % 8.9 % (0.0-5.0); NEUTROPHILS # 4.7 10^3/uL (1.5-8.5); NEUTROPHILS % 62.1 % (36.0-66.0); PLATELET COUNT, AUTOMATED 232 10^3/uL (150-450); RED BLOOD COUNT 3.77 10^6/uL (4.00-5.40); WHITE BLOOD COUNT 7.6 10^3/uL (4.0-10.0)
[2020-02-19 13:28] LABS: ALBUMIN 3.7 GM/DL (3.2-5.2); ALT/SGPT 15 U/L (12-78); BILIRUBIN,TOTAL 0.6 MG/DL (0.2-1.0); BLOOD UREA NITROGEN 14 MG/DL (7-18); CALCIUM LEVEL 8.9 MG/DL (8.8-10.2); CARBON DIOXIDE LEVEL 29 MEQ/L (21-32); CHLORIDE LEVEL 103 MEQ/L (98-107); CHOLESTEROL LEVEL 106 MG/DL (<200); CHOLESTEROL RISK RATIO 2.523 (<5); CREATININE FOR GFR 0.48 MG/DL (0.55-1.30); GLOMERULAR FILTRATION RATE > 60.0 (>39); GLUCOSE, FASTING 106 MG/DL (70-100); HDL CHOLESTEROL 42 MG/DL (>40); LDL CHOLESTEROL 39 MG/DL (<100); NON-HDL-C 64 MG/DL; POTASSIUM SERUM 3.7 MEQ/L (3.5-5.1); SODIUM LEVEL 138 MEQ/L (136-145); TOTAL PROTEIN 6.8 GM/DL (6.4-8.2); TRIGLYCERIDES LEVEL 125 MG/DL (<150)
[2020-02-19 13:50] LABS: HEMOGLOBIN A1c 6.3 %
== END ==
LOC: M WUC 09:48
PROVIDERS: ATTEND Family Medicine
DX: Z79.899 Other long term (current) drug therapy (principal)

== ENCOUNTER 2020-03-07 12:01 | Observation (INO) | payer MEDICARE ==
[~2020-03-07] VITALS: Ht 152.4 cm; Wt 66.0 kg
[~2020-03-07 12:01] MED LIST changes: -ATOR1TAB21 PO; -AZIT-12 PO; -D3-5CAP PO; -DOCU100C16 PO; -DOCU100C17 PO; -NEUR100C PO; -PRED20TA PO
[2020-03-07] MEDS ORDERED: IPRATROPIUM 0.5MG/ALBUTEROL 2.5MG INH SOL UD 3ML (DUONEB) NEB ONE (12:30)
[2020-03-07] MEDS ORDERED: ALBUTEROL SULFATE 2.5 MG/0.5 ML INH NEB SOLN NEB ONE (12:30)
[2020-03-07] MEDS ORDERED: methylPREDNISolone 125MG 2ML VIAL IV ONE (12:30)
[2020-03-07 12:42] LABS: ABG BASE EXCESS 4.1 (-2.0-2.0); ABG HCO3 28.7 MEQ/L (22.0-26.0); ABG O2 SATURATION 90.5 % (95.0-99.0); ABG PARTIAL PRESSURE CO2 43.4 mmHg (35.0-45.0); ABG PARTIAL PRESSURE O2 59.7 mmHg (75.0-100.0); ABG STANDARD HCO3 27.9 MEQ/L (22.0-26.0); ABG TOTAL CO2 30.1 MEQ/L (23.0-31.0); ABG pH (ARTERIAL) 7.439 UNITS (7.350-7.450)
--- NOTE | 2020-03-07 13:04 | REPVR ---
PROCEDURE INFORMATION: Exam: XR Chest, 1 View Exam date and time: 03/07/2020 12:42 PM Age: 79 years old Clinical indication: Cough and dyspnea; Additional info: Dyspnea/cough TECHNIQUE: Imaging protocol: XR of the chest Views: 1 view. COMPARISON: 1. CT Chest with contrast 07/11/2019 5:30 PM 2. CR - Chest, 2 view PA, Lat 07/11/2019 4:09:13 PM FINDINGS: Lungs: There is similar spiculated opacity in the right perihilar region. Minor bibasilar atelectasis/scarring is present as well. Pleural space: Unremarkable. No pleural effusion. No pneumothorax. Heart/Mediastinum: The cardiomediastinal silhouette is fairly stable in appearance, allowing for differences in technique. Bones/joints: Unremarkable. IMPRESSION: Fairly similar appearance of a spiculated right perihilar opacity as compared with radiographs of 07/11/19, and subsequently evaluated with CT, at which point correlation with PET/CT or tissue sampling was recommended. Correlate with results of this recommended further evaluation. No significant new finding. Electronically signed by: Uche Garcia On 03/07/2020 13:04:44 PM
[2020-03-07 13:21] LABS: BASO # 0.1 10^3/uL (0.0-0.2); BASO % 0.8 % (0.0-1.0); EOS # 0.2 10^3/uL (0.0-0.5); EOS % 1.9 % (0.0-3.0); HEMOGLOBIN 11.6 g/dl (12.0-15.5); LYMPH # 1.4 10^3/uL (1.5-5.0); LYMPH % 14.9 % (24.0-44.0); MEAN CORPUSCULAR HEMOGLOBIN 32.1 pg (27.0-33.0); MEAN CORPUSCULAR HGB CONC 32.2 g/dl (32.0-36.5); MEAN CORPUSCULAR VOLUME 99.7 fl (80.0-96.0); MONO # 0.7 10^3/uL (0.0-0.8); MONO % 7.2 % (0.0-5.0); NEUTROPHILS % 74.8 % (36.0-66.0); PLATELET COUNT, AUTOMATED 234 10^3/uL (150-450); RED BLOOD COUNT 3.61 10^6/uL (4.00-5.40); WHITE BLOOD COUNT 9.3 10^3/uL (4.0-10.0)
[2020-03-07 13:52] LABS: ALBUMIN 3.3 GM/DL (3.2-5.2); ALT/SGPT 18 U/L (12-78); BILIRUBIN,DIRECT 0.1 MG/DL (0.0-0.2); BILIRUBIN,TOTAL 0.7 MG/DL (0.2-1.0); BLOOD UREA NITROGEN 12 MG/DL (7-18); CALCIUM LEVEL 8.9 MG/DL (8.8-10.2); CARBON DIOXIDE LEVEL 32 MEQ/L (21-32); CHLORIDE LEVEL 101 MEQ/L (98-107); CK-MB VALUE MASS 1.4 NG/ML (<3.6); CPK CREATINE PHOSPHOKINASE 67 U/L (26-192); CREATININE FOR GFR 0.42 MG/DL (0.55-1.30); GLOMERULAR FILTRATION RATE > 60.0 (>39); GLUCOSE, FASTING 158 MG/DL (70-100); MB/CK RELATIVE INDEX 2.09 (< OR =4); NT-PRO BNP 295 PG/ML (<450); POTASSIUM SERUM 4.3 MEQ/L (3.5-5.1); SODIUM LEVEL 138 MEQ/L (136-145); THYROID STIMULATING HORMONE 0.638 uIU/ML (0.358-3.740); TOTAL PROTEIN 6.9 GM/DL (6.4-8.2); TROPONIN I < 0.02 NG/ML (< 0.10)
[2020-03-07 14:43] VITALS: O2SAT 84
[2020-03-07] MEDS ORDERED: ISOVUE-370 76% 100ML VIAL As Ordered ONE (14:49)
--- NOTE | 2020-03-07 15:42 | REPVR ---
PROCEDURE INFORMATION: Exam: CT Angiography Chest With Contrast Exam date and time: 03/07/2020 3:11 PM Age: 79 years old Clinical indication: Other: Hypoxia TECHNIQUE: Imaging protocol: Computed tomographic angiography of the chest with intravenous contrast. 3D rendering (Not supervised by radiologist): MIP and/or 3D reconstructed images were created by the technologist. Radiation optimization: All CT scans at this facility use at least one of these dose optimization techniques: automated exposure control; mA and/or kV adjustment per patient size (includes targeted exams where dose is matched to clinical indication); or iterative reconstruction. Contrast material: ISOVUE 370; Contrast volume: 75 ml; Contrast route: INTRAVENOUS (IV); COMPARISON: CT Chest with contrast 07/11/2019 5:30 PM FINDINGS: Pulmonary arteries: Normal. No pulmonary emboli. Aorta: Unremarkable. No aortic aneurysm. No aortic dissection. Other arteries: There is extensively heavy calcified splenic artery. Lungs: The lungs are heterogeneous with areas of hyperlucency suggestive of moderate emphysema. There is a new nodule involving the superior segment of the left lower lobe measuring 6 mm on image 401/49. There is a new nodule in the right lower lobe measuring 6 mm on image 401/96. There is a new nodule in the right lower lobe measuring 3 mm on image 401/95. There is a new superior segment right lower lobe mass measuring 6 x 6 mm on image 401/78. Posterior segment right upper lobe mass has enlarged spiculated measuring now 19 x 26 mm on image 401/78. Pleural space: Unremarkable. No pneumothorax. No pleural effusion. Heart: Unremarkable. No cardiomegaly. No pericardial effusion. Mediastinal space: There is a slightly larger hiatal hernia. Lymph nodes: Numerous mediastinal lymph nodes are identified. They appear stable most numerous in the AP window. They measure up to 1 cm in the AP window and 12 mm in the pretracheal space. There is a right hilar lymph node measuring 13 x 11 mm which is stable. Liver: The liver is very fatty. Gallbladder and bile ducts: The gallbladder is again removed. Common bile duct is dilated at the level of the kwaku hepatis to 13 mm, stable. Bones/joints: Unremarkable. No acute fracture. Soft tissues: Unremarkable. Other findings: Vascular calcifications are extensive. IMPRESSION: 1. No pulmonary emboli. 2. Bilateral new pulmonary nodules within increasing size of a right upper lobe mass. 3. Stable adenopathy. Electronically signed by: Bennett Angulo On 03/07/2020 15:42:23 PM
--- NOTE | 2020-03-07 16:55 | ECGEPIP ---
[facility] - ED Test Date: 2020-03-07 Pat Name: BARRY JACOBO Department: Room: - Gender: Female Converter Skimmer: ADOLPH : 1940 Requested By: SHI KLEIN Order Number: [id number] Reading MD: Teresa Cota Measurements Intervals [place] Rate: 80 P: PA: 0 QRS: 74 QRSD: 82 T: 0 QT: 348 QTc: 402 Interpretive Statements ATRIAL FIBRILLATION LOW QRS VOLTAGE IN EXTREMITY LEADS SEPTAL MYOCARDIAL INFARCTION, OF INDETERMINATE AGE SIMILAR 07/11/19 Electronically Signed on 03-07-2020 16:55:23 EDT by Teresa Cota
[2020-03-07] MEDS ORDERED: traZODone 25MG PER 1/2 TABLET PO PRN (17:30)
[2020-03-07] MEDS ORDERED: DEXTROSE 50% 50 ML SYRINGE IV PRN (17:30)
[2020-03-07] MEDS ORDERED: GLUCAGON INJ 1MG VIAL SC PRN (17:30)
[2020-03-07] MEDS ORDERED: GLUCOSE 4GM CHEW TABLET PO PRN (17:30)
--- NOTE | 2020-03-07 17:39 | HPEPDOC ---
General Date of Admission 03/07/20 Date of Service: Mar 07, 2020 Chief Complaint The patient is a 79-year-old female admitted with a reason for visit of Diff Breathing. Source: Patient History of Present Illness 71-year-old female with Past medical history of non-small cell lung cancer treated with only radiation in 2017, COPD, chronic hypoxic respiratory failure, diabetes with neuropathy, atrial fibrillation, sleep apnea, pulmonary hypertension, hyperlipidemia, hypertension, coronary artery disease are not really not syndrome presents to the hospital due to shortness of breath. Patient reports that she has been sick for 2 weeks when she developed a cold with cough, congestion, increased shortness of breath, now associated with increased chest and back pain. She had no energy and could not sleep. She felt better for 1 to 2 days then again started feeling SOB, weak tiredand unable to sleep. SHe was taking COricidin hbp which usually helps her witht he colds that she has. It helped the first week but does not seem to be helping any more. So she came to the emergency room for evaluation. On arrival to the ED, she was saturating at 84% with the home 2 L of oxygen on rest. On Ambulation she dropped to 79% with her usual oxygen. She was admitted for a COPD exacerbation and acute on chronic hypoxic respiratory failure For workup in the ED she had a respiratory panel done in the ED which was negative. She also had a CT in general, the chest done which was negative for pulmonary emboli, new bilateral pulmonary nodules with increasing size of the right upper lobe mass and stable lymphadenopathy. Moderate emphysema Home Medications Scheduled Ascorbic Acid/Vitamin E/Biotin (Hair Skin Nails-Biotin Gummies) 1 Each Tab.chew, 1 TAB PO DAILY, (Reported) Atorvastatin Calcium (Atorvastatin Calcium) 40 Mg Tablet, 40 MG PO QHS, (Reported) Biotin (Biotin) 5 Mg Capsule, 5,000 MCG PO DAILY, (Reported) Brinzolamide/Brimonidine Tart (Simbrinza 1%-0.2% Eye Drops) 1 Stefania Stefania, 1 DROP OU BID, (Reported) Chlorthalidone (Chlorthalidone) 25 Mg Tablet, 12.5 MG PO DAILY, (Reported) Cholecalciferol (Vitamin D3) (Vitamin D3) 25 Mcg Capsule, 25 MCG PO DAILY, (Reported) Cyanocobalamin (Vitamin B-12) (Vitamin B12) 5,000 Mcg Tab.rapdis, 5,000 MCG PO DAILY, (Reported) Diltiazem HCl (Dilt-Xr) 180 Mg Cap.er.deg, 180 MG PO DAILY, (Reported) Fluticasone/Vilanterol (Breo Ellipta 200-25 Mcg INH) 1 Each Blst.w.dev, 1 PUFF INH DAILY, (Reported) Gabapentin (Gabapentin) 100 Mg Capsule, 100 MG PO BID, (Reported) Losartan Potassium (Losartan Potassium) 50 Mg Tablet, 50 MG PO DAILY, (Reported) Metformin HCl (Metformin HCl) 1,000 Mg Tab, 1,000 MG PO BID, (Reported) Multivitamins (Thera M Plus Tablet) 1 Tab Tab, 1 TAB PO DAILY, (Reported) Potassium Chloride (Klor-Con M10) 10 Meq Tabcr, 10 MEQ PO DAILY, (Reported) Rivaroxaban (Xarelto) 20 Mg Tab, 20 MG PO QPM, (Reported) Umeclidinium [place] (Incruse Ellipta) 62.5 Mcg Blst.w.dev, 62.5 MCG INH DAILY, (Reported) Scheduled PRN Albuterol Sulfate (Proair Hfa) 108 Mcg/Act Aer, 2 PUFF INH Q4H PRN for SHORTNESS OF BREATH, (Reported) Docusate Sodium (Docusate Sodium) 100 Mg Capsule, 100 MG PO BID PRN for CONSTIPATION, (Reported) Nitroglycerin (Nitroglycerin) 0.4 Mg Sub, 0.4 MG SL NITRO PRN for ANGINA, (Reported) Allergies Coded Allergies: No Known Allergies (Unverified , 07/11/19) Past Medical History Medical History Persistent Right Upper Lobe Spiculated Mass ATRIAL FIBRILLATION TYPE II DIABETES COMPLICATED BY DIABETIC NEUROPATHY POORLY DIFFERENTIATED NON-SMALL CELL LUNG CANCER with extensive necrosis, favor poorly differentiated squamous cell carcinoma. a stage IA, [id number] TREATED WITH RADIATION ONLY Due to poor lung function. COPD WITH CHRONIC HYPOXIC RESP FAILURE WITH PULMONARY HYPERTENSION CORONARY ARTERY DISEASE (CATH SEPTEMBER 2016) RAYNAUDS SYNDROME SLEEP APNEA WITH PULMONARY HYPERTENSION HYPERLIPIDEMIA HTN ROSACEA DIVERTICULOSIS GLAUCOMA HEMORRHOIDS ADJUSTMENT DISORDER Vit B12 def Surgical History HYSTERECTOMY GALLBLADDER BREAST BIOPSY CATARACT SURGERY/AND LASER SURGERY D&C A&P REPAIR FOOT SURGERY Family History FATHER: 57 YRS, ANEURYSM MOTHER: 67 YRS, LUNG CANCER Social History * Smoker: former Smoker Alcohol: Denies Drugs: denies A-FIB/CHADSVASC A-FIB History Current/History of A-Fib/PAF?: Yes Current PO Anticoag Therapy: Yes Review of Systems Constitutional: Reports: Weakness, Fatigue Eyes: Denies: Pain, Vision change ENT: Denies: Head Aches, Ear Pain, Dysphagia Skin: Denies: Rash, Lesions, Breakdown Pulmonary: Reports: Dyspnea, Cough Cardiovascular: Reports: Edema Gastrointestinal: Denies: Nausea, Vomiting, Abdominal Pain Genitourinary: Denies: Dysuria, Frequency, Incontinence, Retention Hematologic: Denies: Bruising, Bleeding Excessively Musculoskeletal: Denies: Neck Pain, Back Pain, Joint Pain, Muscle Pain, Spasms Physical Examination General Exam: Positive: Alert, Cooperative, No Acute Distress Eye Exam: Positive: PERRLA, Conjunctiva & lids normal, EOMI; Negative: Sclera icteric ENT Exam: Positive: Atraumatic, Mucous membr. moist/pink, Pharynx Normal Neck Exam: Positive: Supple; Negative: JVD, thyromegaly Chest Exam: Positive: Diminished, Other (crackles at both the bases. ) Heart Exam: Positive: Rate Normal, Regular Rhythm, Normal S1, Normal S2; Negative: Murmurs, Rubs Abdomen Exam: Positive: Normal bowel sounds, Soft; Negative: Tenderness, Hepatospenomegaly Extremity Exam: Positive: Edema (bipedal ankle edema), Normal pulses; Negative: Clubbing, Cyanosis Skin Exam: Positive: Nl turgor and temperature; Negative: Breakdown, Lesion Neuro Exam: Positive: Normal Gait, Normal Speech, Cranial Nerves 3-12 NL, Reflexes 2+ Vital Signs Vital Signs Date Time Temp Pulse Resp B/P (MAP) Pulse Ox O2 Delivery O2 Flow Rate FiO2 03/07/20 15:50 90 22 149/65 (93) 92 Nasal Cannula 3.0 03/07/20 12:01 98.6 Laboratory Data Labs 24H Laboratory Tests 2 03/07/20 12:30: Immature Granulocyte % (Auto) 0.4, Neutrophils (%) (Auto) 74.8H, Lymphocytes (%) (Auto) 14.9L, Monocytes (%) (Auto) 7.2H, Eosinophils (%) (Auto) 1.9, Basophils (%) (Auto) 0.8, Neutrophils # (Auto) 7.0, Lymphocytes # (Auto) 1.4L, Monocytes # (Auto) 0.7, Eosinophils # (Auto) 0.2, Basophils # (Auto) 0.1, Nucleated Red Blood Cells % (auto) 0.0, Anion Gap 5L, Glomerular Filtration Rate > 60.0, Calcium Level 8.9, Total Bilirubin 0.7, Direct Bilirubin 0.1, Aspartate Amino Transf (AST/SGOT) 31, Alanine Aminotransferase (ALT/SGPT) 18, Alkaline Phosphatase 101, Total Creatine Kinase 67, Creatine Kinase MB 1.4, Creatine Kinase MB Relative Index 2.09, Troponin I < 0.02, BD-Ifc-C-Type Natriuretic Peptide 295, Total Protein 6.9, Albumin 3.3, Albumin/Globulin Ratio 0.9L, Thyroid Stimulating Hormone (TSH) 0.638 03/07/20 12:35: Blood Gas Bicarbonate Standard 27.9H, Arterial Blood pH 7.439, Arterial Blood Partial Pressure CO2 43.4, Arterial Blood Partial Pressure O2 59.7L, Arterial Blood Total CO2 30.1, Arterial Blood HCO3 28.7H, Arterial Blood Base Excess 4.1 H, Arterial Blood Oxygen Saturation 90.5L CBC/BMP Laboratory Tests 03/07/20 12:30 Assessment/Plan 71-year-old female with Past medical history of non-small cell lung cancer treated with only radiation in 2017, COPD, chronic hypoxic respiratory failure, diabetes with neuropathy, atrial fibrillation, sleep apnea, pulmonary hypertension, hyperlipidemia, hypertension, coronary artery disease are not really not syndrome presents to the hospital due to shortness of breath. Patient reports that she has been sick for 2 weeks when she developed a cold with cough, congestion, increased shortness of breath, now associated with increased chest and back pain. She had no energy and could not sleep. She felt better for 1 to 2 days then again started feeling SOB, weak tiredand unable to sleep. SHe was taking COricidin hbp which usually helps her witht he colds that she has. It helped the first week but does not seem to be helping any more. So she came to the emergency room for evaluation. On arrival to the ED, she was saturating at 84% with the home 2 L of oxygen on rest. On Ambulation she dropped to 79% with her usual oxygen. She was admitted for a COPD exacerbation and acute on chronic hypoxic respiratory failure Acute and chronic hypoxic respiratory failure probably due to COPD exacerbation due to change in barometric pressures and change in temperatures. No viral or bacterial infection noted. COPD continue nebs inhalors and steroids. Right upper lobe lung cancer in remission Chronic A fib xarelto, diltiazem for rate control. Diabetes with neuropathy carb consistent diet, lispro as per sliding scale, FS Ac and HS. Hold metformin Hypertension diltiazem losartan, HCTZ Hyperlipidemia home meds PATY with pulmonary hypertension/ corpulmonale will give a dose of lasix. CHF unknown type no echo in the EMR Fluid overload mild will give lasix one dose and continue HCTZ. CAD home meds Plan / VTE VTE Prophylaxis Ordered?: Yes ARNULFO DE ANDA MD Mar 07, 2020 17:01
[2020-03-07] MEDS ORDERED: DOCU100C17 PO (17:48)
[2020-03-07] MEDS ORDERED: FUROSEMIDE 40MG/4ML VIAL (J1940) IV ONE (18:00)
[2020-03-07] MEDS ORDERED: DOCUSATE SODIUM 100 MG CAP PO PRN (18:00)
[2020-03-07] MEDS ORDERED: RIVAROXABAN 20 MG TAB (XARELTO) PO SCH (18:00)
[2020-03-07] MEDS: HumaLOG INSULIN (NovoLOG) PER UNIT SC SCH (18:25)
[2020-03-07] MEDS: ALBUTEROL SULFATE 2.5 MG/0.5 ML INH NEB SOLN NEB SCH (19:25)
[2020-03-07] MEDS: SYMBICORT 160/4.5MCG INHALER 6GM INH SCH (19:25)
[2020-03-07] MEDS ORDERED: ATORVASTATIN 20 MG TAB PO SCH (21:00)
[2020-03-07] MEDS ORDERED: HumaLOG INSULIN (NovoLOG) PER UNIT SC SCH (21:00)
[2020-03-07 21:30] VITALS: BP_SYST 154; BP_SYST 166; BP_DIAS 78; BP_DIAS 87
[2020-03-07] MEDS: methylPREDNISolone 40MG 1ML VIAL IV SCH (22:00)
[2020-03-07] MEDS: GABAPENTIN 100 MG CAP PO SCH (22:00)
[2020-03-08] MEDS: ALBUTEROL SULFATE 2.5 MG/0.5 ML INH NEB SOLN NEB SCH ×4 (04:00→11:26)
[2020-03-08] MEDS: methylPREDNISolone 40MG 1ML VIAL IV SCH ×2 (05:32→12:07)
[2020-03-08 06:00] VITALS: BP 152/84
[2020-03-08 06:39] LABS: HEMATOCRIT 36.5 % (36.0-47.0); HEMOGLOBIN 12.3 g/dl (12.0-15.5); MEAN CORPUSCULAR HEMOGLOBIN 32.8 pg (27.0-33.0); MEAN CORPUSCULAR HGB CONC 33.7 g/dl (32.0-36.5); MEAN CORPUSCULAR VOLUME 97.3 fl (80.0-96.0); PLATELET COUNT, AUTOMATED 250 10^3/uL (150-450); RED BLOOD COUNT 3.75 10^6/uL (4.00-5.40); WHITE BLOOD COUNT 6.4 10^3/uL (4.0-10.0)
[2020-03-08 07:09] LABS: BLOOD UREA NITROGEN 16 MG/DL (7-18); CALCIUM LEVEL 8.8 MG/DL (8.8-10.2); CARBON DIOXIDE LEVEL 31 MEQ/L (21-32); CHLORIDE LEVEL 101 MEQ/L (98-107); CREATININE FOR GFR 0.42 MG/DL (0.55-1.30); GLOMERULAR FILTRATION RATE > 60.0 (>39); GLUCOSE, FASTING 203 MG/DL (70-100); POTASSIUM SERUM 3.4 MEQ/L (3.5-5.1); SODIUM LEVEL 141 MEQ/L (136-145)
--- NOTE | 2020-03-08 07:33 | IPNPDOC ---
Date Seen The patient was seen on 03/08/20. Progress Note SUBJECTIVE: Patient was seen and examined at bedside. Comfortable sitting upright in chair. Not dyspneic. Speaking in full sentences. She is alert and oriented 3. Receiving supplemental oxygen via nasal cannula at 3 L. Reduced her oxygen flow to 2 L and she was saturating at 93%, which is consistent with her baseline at home. She denies worsening cough, subjective fevers or chills, denies green or yellow sputum. OBJECTIVE PHYSICAL EXAMINATION: VITAL SIGNS: Please see below. General: NAD, comfortable HEENT: PERRLA, EOMI, sclerae clear Neck: supple, normal ROM, no JVD Respiratory: lungs CTAB, no wheeze, no rales, no crackles CVS: RRR, normal S1, S2, no murmurs Abdo: soft, no masses, no hepatosplenomegaly, BS+, no rebound tenderness Extremities: no edema, pulses 2+, no cyanosis MSK: no joint deformities, normal ROM Neuro: no focal neuro deficits, moving all 4 extremities, CN2-12 intact. Strength 5/5 in all 4 extremities. No nystagmus. Psych: calm, cooperative, AAO x 3 LABORATORY DATA, IMAGING STUDIES, MICROBIOLOGY: Please see below. CTA chest (03/07/20): FINDINGS: Pulmonary arteries: Normal. No pulmonary emboli. Aorta: Unremarkable. No aortic aneurysm. No aortic dissection. Other arteries: There is extensively heavy calcified splenic artery. Lungs: The lungs are heterogeneous with areas of hyperlucency suggestive of moderate emphysema. There is a new nodule involving the superior segment of the left lower lobe measuring 6 mm on image 401/49. There is a new nodule in the right lower lobe measuring 6 mm on image 401/96. There is a new nodule in the right lower lobe measuring 3 mm on image 401/95. There is a new superior segment right lower lobe mass measuring 6 x 6 mm on image 401/78. Posterior segment right upper lobe mass has enlarged spiculated measuring now 19 x 26 mm on image 401/78. Pleural space: Unremarkable. No pneumothorax. No pleural effusion. Heart: Unremarkable. No cardiomegaly. No pericardial effusion. Mediastinal space: There is a slightly larger hiatal hernia. Lymph nodes: Numerous mediastinal lymph nodes are identified. They appear stable most numerous in the AP window. They measure up to 1 cm in the AP window and 12 mm in the pretracheal space. There is a right hilar lymph node measuring 13 x 11 mm which is stable. Liver: The liver is very fatty. Gallbladder and bile ducts: The gallbladder is again removed. Common bile duct is dilated at the level of the kwaku hepatis to 13 mm, stable. Bones/joints: Unremarkable. No acute fracture. Soft tissues: Unremarkable. Other findings: Vascular calcifications are extensive. IMPRESSION: 1. No pulmonary emboli. 2. Bilateral new pulmonary nodules within increasing size of a right upper lobe mass. 3. Stable adenopathy. DVT prophylaxis ordered? Y, xarelto 71-year-old female with Past medical history of non-small cell lung cancer treated with only radiation in 2017, COPD, chronic hypoxic respiratory failure, diabetes with neuropathy, atrial fibrillation, sleep apnea, pulmonary hypertension, hyperlipidemia, hypertension, coronary artery disease, presented to the hospital due to shortness of breath. Patient reports that she has been sick for 2 weeks when she developed a cold with cough, congestion, increased shortness of breath, now associated with increased chest and back pain. She had no energy and could not sleep. She felt better for 1 to 2 days then again started feeling SOB, weak tired and unable to sleep. She was taking Coricidin which usually helps her with he colds that she has. It helped the first week but does not seem to be helping any more. So she came to the emergency room for evaluation. On arrival to the ED, she was saturating at 84% with the home 2 L of oxygen on rest. On ambulation she dropped to 79% with her usual oxygen. She was admitted for a COPD exacerbation and acute on chronic hypoxic respiratory failure. Acute and chronic hypoxic respiratory failure: secondary to COPD exacerbation. CTA PE negative for PE. COPD exacerbation: duonebs. solumedrol 40 mg IV q8h. 3L o2 at 98%, weaned to baseline flow on 2L saturating at 93%.he reported some sputum that began to improve 2 days ago. Given her comorbidities, will start course of azithromycin for 5 days. Close outpatient follow up. R upper lobe non-small cell lung ca (poss poorly diff SCC): being followed at [facility]. Suspect possibly recurrent of lung ca given new CT chest findings. To follow up as outpatient with her oncology team. Chronic Atrial Fibrillation: on AC with xarelto. Diltiazem for rate control. Diabetes with neuropathy: CC diet. ISS. FSBS AC and HS. Hypoglycemic precautions. Holding metformin. Hyperkalemia: replaced, repeat BMP in am. Hypertension: diltiazem, losartan, hctz Hyperlipidemia: continue home meds PATY with pulmonary hypertension/ cor pulmonale: was given one dose lasix. CHF unknown type no echo in the EMR: ordered 2D echo. to follow up as outpatient. Patient appears euvolemic on clinic exam, dyspnea has resolved likely due to IV steroids for COPD exacerbation management. CAD: home meds DVT ppx: xarelto VS, I&O, 24H, Fishbone Vital Signs/I&O Vital Signs Date Time Temp Pulse Resp B/P (MAP) Pulse Ox O2 Delivery O2 Flow Rate FiO2 03/08/20 06:00 98.4 84 18 152/84 (106) 98 Nasal Cannula 3.0 I&O- Last 24 Hours up to 6 AM 03/08/20 06:00 Intake Total 0 ml Output Total 700 ml Balance -700 ml Laboratory Data 24H LABS Laboratory Tests 2 03/07/20 12:30: Immature Granulocyte % (Auto) 0.4, Neutrophils (%) (Auto) 74.8H, Lymphocytes (%) (Auto) 14.9L, Monocytes (%) (Auto) 7.2H, Eosinophils (%) (Auto) 1.9, Basophils (%) (Auto) 0.8, Neutrophils # (Auto) 7.0, Lymphocytes # (Auto) 1.4L, Monocytes # (Auto) 0.7, Eosinophils # (Auto) 0.2, Basophils # (Auto) 0.1, Nucleated Red Blood Cells % (auto) 0.0, Anion Gap 5L, Glomerular Filtration Rate > 60.0, Calcium Level 8.9, Total Bilirubin 0.7, Direct Bilirubin 0.1, Aspartate Amino Transf (AST/SGOT) 31, Alanine Aminotransferase (ALT/SGPT) 18, Alkaline Phosphatase 101, Total Creatine Kinase 67, Creatine Kinase MB 1.4, Creatine Kinase MB Relative Index 2.09, Troponin I < 0.02, QX-Ult-W-Type Natriuretic Peptide 295, Total Protein 6.9, Albumin 3.3, Albumin/Globulin Ratio 0.9L, Thyroid Stimulating Hormone (TSH) 0.638 03/07/20 12:35: Blood Gas Bicarbonate Standard 27.9H, Arterial Blood pH 7.439, Arterial Blood Partial Pressure CO2 43.4, Arterial Blood Partial Pressure O2 59.7L, Arterial Blood Total CO2 30.1, Arterial Blood HCO3 28.7H, Arterial Blood Base Excess 4.1H, Arterial Blood Oxygen Saturation 90.5L 03/07/20 17:52: Bedside Glucose (Misc Panel) 211H 03/07/20 20:53: Bedside Glucose (Misc Panel) 321H 03/08/20 06:15: Nucleated Red Blood Cells % (auto) 0.0, Anion Gap 9, Glomerular Filtration Rate > 60.0, Calcium Level 8.8 CBC/BMP Laboratory Tests 03/07/20 12:30 03/08/20 06:15 MIKE PRATHER MD Mar 08, 2020 07:33
[2020-03-08 07:42] LABS: MAGNESIUM LEVEL 1.8 MG/DL (1.8-2.4)
[2020-03-08] MEDS: SYMBICORT 160/4.5MCG INHALER 6GM INH SCH (07:43)
[2020-03-08] MEDS ORDERED: TIOTROPIUM INHALER/CAPSULE (SPIRIVA) INH SCH (08:00)
[2020-03-08] MEDS ORDERED: POTASSIUM CHLORIDE 10 MEQ SR TABLET PO ONE (08:00)
[2020-03-08] MEDS: GABAPENTIN 100 MG CAP PO SCH (08:28)
[2020-03-08 08:29] VITALS: BP 152/84
[2020-03-08] MEDS: HumaLOG INSULIN (NovoLOG) PER UNIT SC SCH ×2 (08:29→12:08)
[2020-03-08] MEDS ORDERED: CHLORTHALIDONE 12.5MG PER 1/2 TABLET PO SCH (09:00)
[2020-03-08] MEDS ORDERED: diltiaZEM **CD** 180 MG CAP PO SCH (09:00)
[2020-03-08] MEDS ORDERED: LOSARTAN 50MG TABLET PO SCH (09:00)
[2020-03-08] MEDS ORDERED: AZITHROMYCIN 250MG TABLET PO ONE (11:00)
[2020-03-08] MEDS ORDERED: ATOR1TAB21 PO (11:53)
[2020-03-08] MEDS ORDERED: DOCU100C16 PO (11:53)
[2020-03-08] MEDS ORDERED: CHLO125TA PO (11:53)
[2020-03-08] MEDS ORDERED: BREO1INH3 INH (11:53)
[2020-03-08] MEDS ORDERED: PRED20TA PO (11:53)
[2020-03-08] MEDS ORDERED: PROAAER10 INH (11:53)
[2020-03-08] MEDS ORDERED: AZIT-12 PO (11:54)
--- NOTE | 2020-03-08 11:57 | DS.PDOC ---
Discharge Summary General Date of Admission Mar 07, 2020 at 12:02 Date of Discharge 03/08/20 Attending Physician: MIKE PRATHER MD Discharge Summary PROCEDURES PERFORMED DURING STAY: [None]. ADMITTING DIAGNOSES: Acute and Chronic Hypoxic Respiratory Failure COPD Lung Cancer, R upper lobe Chronic atrial fibrillation Diabetes Type 2 with neuropathy Hypertension Hyperlipidemia PATY with pulmonary hypertension/cor pulmonaly CHF, unspecified CAD DISCHARGE DIAGNOSES: Acute and Chronic Hypoxic Respiratory Failure COPD Chronic atrial fibrillation Diabetes Type 2 with neuropathy Hypertension Hyperlipidemia PATY with pulmonary hypertension/cor pulmonaly CHF, unspecified CAD COMPLICATIONS/CHIEF COMPLAINT: Acute And Chronic Respiratory Failure/Copd. HISTORY OF PRESENT ILLNESS: 71-year-old female with Past medical history of non- small cell lung cancer treated with only radiation in 2017, COPD, chronic hypoxic respiratory failure, diabetes with neuropathy, atrial fibrillation, sleep apnea, pulmonary hypertension, hyperlipidemia, hypertension, coronary artery disease are not really not syndrome presents to the hospital due to shortness of breath. Patient reports that she has been sick for 2 weeks when she developed a cold with cough, congestion, increased shortness of breath, now associated with increased chest and back pain. She had no energy and could not sleep. She felt better for 1 to 2 days then again started feeling SOB, weak tiredand unable to sleep. SHe was taking COricidin hbp which usually helps her witht he colds that she has. It helped the first week but does not seem to be helping any more. So she came to the emergency room for evaluation. On arrival to the ED, she was saturating at 84% with the home 2 L of oxygen on rest. On Ambulation she dropped to 79% with her usual oxygen. She was admitted for a COPD exacerbation and acute on chronic hypoxic respiratory failure For workup in the ED she had a respiratory panel done in the ED which was negative. She also had a CT in general, the chest done which was negative for pulmonary emboli, new bilateral pulmonary nodules with increasing size of the right upper lobe mass and stable lymphadenopathy. Moderate emphysema . HOSPITAL COURSE: Acute and chronic hypoxic respiratory failure: secondary to COPD exacerbation. CTA PE negative for PE. COPD exacerbation: duonebs. solumedrol 40 mg IV q8h. 3L o2 at 98%, weaned to baseline flow on 2L saturating at 93%.he reported some sputum that began to improve 2 days ago. Given her comorbidities, will start course of azithromycin for 5 days. Prednisone PO x 5 days. Close outpatient follow up. F/u pulm. R upper lobe non-small cell lung ca (poss poorly diff SCC): being followed at [facility]. Suspect possibly recurrent of lung ca given new CT chest findings. To follow up as outpatient with her oncology team. Chronic Atrial Fibrillation: on AC with xarelto. Diltiazem for rate control. Diabetes with neuropathy: CC diet. ISS. FSBS AC and HS. Hypoglycemic precautions. Holding metformin. Hyperkalemia: replaced Hypertension: diltiazem, losartan, hctz Hyperlipidemia: continue home meds PATY with pulmonary hypertension/ cor pulmonale: was given one dose lasix. CHF unknown type no echo in the EMR: ordered 2D echo. to follow up as outpatient. Patient appears euvolemic on clinic exam, dyspnea has resolved likely due to IV steroids for COPD exacerbation management. CAD: home meds DVT ppx: xarelto DISCHARGE MEDICATIONS: Please see below. ALLERGIES: Please see below. PHYSICAL EXAMINATION ON DISCHARGE: VITAL SIGNS: Please see below. General: NAD, comfortable HEENT: PERRLA, EOMI, sclerae clear Neck: supple, normal ROM, no JVD Respiratory: lungs CTAB, no wheeze, no rales, no crackles CVS: RRR, normal S1, S2, no murmurs Abdo: soft, no masses, no hepatosplenomegaly, BS+, no rebound tenderness Extremities: no edema, pulses 2+, no cyanosis MSK: no joint deformities, normal ROM Neuro: no focal neuro deficits, moving all 4 extremities, CN2-12 intact. Strength 5/5 in all 4 extremities. No nystagmus. Psych: calm, cooperative, AAO x 3 LABORATORY DATA: Please see below. IMAGING: CTA Chest (03/07/20): FINDINGS: Pulmonary arteries: Normal. No pulmonary emboli. Aorta: Unremarkable. No aortic aneurysm. No aortic dissection. Other arteries: There is extensively heavy calcified splenic artery. Lungs: The lungs are heterogeneous with areas of hyperlucency suggestive of moderate emphysema. There is a new nodule involving the superior segment of the left lower lobe measuring 6 mm on image 401/49. There is a new nodule in the right lower lobe measuring 6 mm on image 401/96. There is a new nodule in the right lower lobe measuring 3 mm on image 401/95. There is a new superior segment right lower lobe mass measuring 6 x 6 mm on image 401/78. Posterior segment right upper lobe mass has enlarged spiculated measuring now 19 x 26 mm on image 401/78. Pleural space: Unremarkable. No pneumothorax. No pleural effusion. Heart: Unremarkable. No cardiomegaly. No pericardial effusion. Mediastinal space: There is a slightly larger hiatal hernia. Lymph nodes: Numerous mediastinal lymph nodes are identified. They appear stable most numerous in the AP window. They measure up to 1 cm in the AP window and 12 mm in the pretracheal space. There is a right hilar lymph node measuring 13 x 11 mm which is stable. Liver: The liver is very fatty. Gallbladder and bile ducts: The gallbladder is again removed. Common bile duct is dilated at the level of the kwaku hepatis to 13 mm, stable. Bones/joints: Unremarkable. No acute fracture. Soft tissues: Unremarkable. Other findings: Vascular calcifications are extensive. IMPRESSION: 1. No pulmonary emboli. 2. Bilateral new pulmonary nodules within increasing size of a right upper lobe mass. 3. Stable adenopathy. PROGNOSIS: fair ACTIVITY: As tolerated. DIET: consistent carbohydrate DISCHARGE PLAN: home with PCP and specialist follow up. Continue azithromycin for 4 days, prednisone for 5 days. DISPOSITION: Home. DISCHARGE INSTRUCTIONS: PLEASE FOLLOW UP WITH YOUR ONCOLOGIST IN [facility]. PLEASE FOLLOW UP WITH YOUR [employer] WORKER - Dr. Cochran 2 weeks. PLEASE FOLLOW UP WITH FIRER KILN IN 2-3 WEEKS. PLEASE TAKE YOUR MEDICATIONS PRESCRIBED - CONTINUE ANTIBIOTICS FOR 4 MORE DAYS. IF YOU DEVELOP CHEST PAIN, SHORTNESS OF BREATH, FEVERS, CHILLS, BLEEDING OR OTHERWISE WORSENING OF YOUR SYMPTOMS, PLEASE CALL 911 OR RETURN TO THE EMERGENCY DEPARTMENT. ITEMS TO FOLLOWUP ON ON OUTPATIENT: Echocardiogram (performed on 03/08/20) DISCHARGE CONDITION: [Stable]. TIME SPENT ON DISCHARGE: Greater than 30 minutes. Vital Signs/I&Os Vital Signs Date Time Temp Pulse Resp B/P (MAP) Pulse Ox O2 Delivery O2 Flow Rate FiO2 03/08/20 09:50 2.0 03/08/20 08:29 84 152/84 03/08/20 06:00 98.4 18 98 Nasal Cannula I&O- Last 24 Hours up to 6 AM 03/08/20 06:00 Intake Total 0 ml Output Total 700 ml Balance -700 ml Laboratory Data Labs 24H Laboratory Tests 2 03/07/20 12:30: Immature Granulocyte % (Auto) 0.4, Neutrophils (%) (Auto) 74.8H, Lymphocytes (%) (Auto) 14.9L, Monocytes (%) (Auto) 7.2H, Eosinophils (%) (Auto) 1.9, Basophils (%) (Auto) 0.8, Neutrophils # (Auto) 7.0, Lymphocytes # (Auto) 1.4L, Monocytes # (Auto) 0.7, Eosinophils # (Auto) 0.2, Basophils # (Auto) 0.1, Nucleated Red Blood Cells % (auto) 0.0, Anion Gap 5L, Glomerular Filtration Rate > 60.0, Calcium Level 8.9, Total Bilirubin 0.7, Direct Bilirubin 0.1, Aspartate Amino Transf (AST/SGOT) 31, Alanine Aminotransferase (ALT/SGPT) 18, Alkaline Phosphatase 101, Total Creatine Kinase 67, Creatine Kinase MB 1.4, Creatine Kinase MB Relative Index 2.09, Troponin I < 0.02, CB-Lba-B-Type Natriuretic Peptide 295, Total Protein 6.9, Albumin 3.3, Albumin/Globulin Ratio 0.9L, Thyroid Stimulating Hormone (TSH) 0.638 03/07/20 12:35: Blood Gas Bicarbonate Standard 27.9H, Arterial Blood pH 7.439, Arterial Blood Partial Pressure CO2 43.4, Arterial Blood Partial Pressure O2 59.7L, Arterial Blood Total CO2 30.1, Arterial Blood HCO3 28.7H, Arterial Blood Base Excess 4.1H, Arterial Blood Oxygen Saturation 90.5L 03/07/20 17:52: Bedside Glucose (Misc Panel) 211H 03/07/20 20:53: Bedside Glucose (Misc Panel) 321H 03/08/20 06:15: Nucleated Red Blood Cells % (auto) 0.0, Anion Gap 9, Glomerular Filtration Rate > 60.0, Calcium Level 8.8, Magnesium Level 1.8 CBC/BMP Laboratory Tests 03/07/20 12:30 03/08/20 06:15 FSBS Laboratory Tests Test 03/07/20 17:52 03/07/20 20:53 Range/Units Bedside Glucose (Misc Panel) 211 321 83-110 MG/DL Discharge Medications Scheduled Ascorbic Acid/Vitamin E/Biotin (Hair Skin Nails-Biotin Gummies) 1 Each Tab.chew, 1 TAB PO DAILY, (Reported) Atorvastatin Calcium (Atorvastatin Calcium) 40 Mg Tablet, 40 MG PO QHS, (Reported) Atorvastatin Calcium (Atorvastatin Calcium) 20 Mg Tablet, 40 MG PO QHS Azithromycin (Azithromycin) 250 Mg Tablet, 250 MG PO DAILY Biotin (Biotin) 5 Mg Capsule, 5,000 MCG PO DAILY, (Reported) Brinzolamide/Brimonidine Tart (Simbrinza 1%-0.2% Eye Drops) 1 Stefania Stefania, 1 DROP OU BID, (Reported) Chlorthalidone (Chlorthalidone) 25 Mg Tablet, 12.5 MG PO DAILY Cholecalciferol (Vitamin D3) (Vitamin D3) 25 Mcg Capsule, 25 MCG PO DAILY, (Reported) Cyanocobalamin (Vitamin B-12) (Vitamin B12) 5,000 Mcg Tab.rapdis, 5,000 MCG PO DAILY, (Reported) Diltiazem HCl (Dilt-Xr) 180 Mg Cap.er.deg, 180 MG PO DAILY, (Reported) Fluticasone/Vilanterol (Breo Ellipta 200-25 Mcg INH) 1 Each Blst.w.dev, 1 PUFF INH DAILY Gabapentin (Gabapentin) 100 Mg Capsule, 100 MG PO BID, (Reported) Losartan Potassium (Losartan Potassium) 50 Mg Tablet, 50 MG PO DAILY, (Reported) Metformin HCl (Metformin HCl) 1,000 Mg Tab, 1,000 MG PO BID, (Reported) Multivitamins (Thera M Plus Tablet) 1 Tab Tab, 1 TAB PO DAILY, (Reported) Potassium Chloride (Klor-Con M10) 10 Meq Tabcr, 10 MEQ PO DAILY, (Reported) Prednisone (Prednisone) 20 Mg Tablet, 40 MG PO DAILY Rivaroxaban (Xarelto) 20 Mg Tab, 20 MG PO QPM, (Reported) Umeclidinium [place] (Incruse Ellipta) 62.5 Mcg Blst.w.dev, 62.5 MCG INH DAILY, (Reported) Scheduled PRN Albuterol Sulfate (Proair Hfa) 108 Mcg/Act Aer, 2 PUFF INH Q4H PRN for SHORTNESS OF BREATH Docusate Sodium (Docusate Sodium) 100 Mg Capsule, 100 MG PO BID PRN for CONSTIPATION Nitroglycerin (Nitroglycerin) 0.4 Mg Sub, 0.4 MG SL NITRO PRN for ANGINA, (Reported) Allergies Coded Allergies: No Known Allergies (Unverified , 07/11/19) MIKE PRATHER MD Mar 08, 2020 11:57
--- NOTE | 2020-03-08 14:41 | ECHO ---
DATE OF PROCEDURE: 03/08/2020 Age: 79 Gender: Female Height: 152 cm Weight: 66 kg REFERRING PHYSICIAN: Carlos Overton MD INDICATION: Dyspnea. MEASUREMENTS: 2D Measurements: Left atrium 4.6 cm Left atrial volume index 45 cm Aortic root 3.0 cm Intraventricular septum 1.23 cm Posterior wall 1.26 cm Inferior vena cava 1.7 cm with more than 50% respiratory variation Doppler Measurements: No aortic stenosis No aortic regurgitation Aortic valve velocity 208 cm/s LVOT velocity 91.6 cm/s Trace mitral regurgitation No mitral stenosis Mitral E velocity 125 cm/s Mitral A velocity 33 cm/s Mitral deceleration time 166 msec Mild tricuspid regurgitation Estimated right ventricular systolic pressure 50-55 mmHg Estimated right atrial pressure 5-10 mmHg No pulmonic regurgitation Pulmonary acceleration time 58 msec MITRAL ANNULAR TISSUE DOPPLER E prime septal 7.2 cm/s, E prime lateral 10.8 cm/s DESCRIPTION: Rhythm was sinus. This was a moderately technically difficult echocardiogram. This was a 2D, M-mode, color flow Doppler, and pulsed wave Doppler examination including mitral annular tissue Doppler. CONCLUSIONS: 1. Very mild concentric left ventricular hypertrophy. Normal regional left ventricular (LV) wall motion and wall thickening. Normal left ventricular (LV) systolic function. Left ventricular ejection fraction (LVEF) 70% by visual estimate. Restrictive left ventricular (LV) diastolic filling pattern (grade 3 or grade 4 diastolic dysfunction). 2. Severe left atrial dilatation by left atrial volume index. 3. Suggestive of moderate elevation of estimated right ventricle systolic pressure (50-55 mmHg). Moderate right ventricular hypertrophy with normal right ventricle cavity size and normal right ventricle systolic function. Partial flattening of the intraventricular septum in both diastole and systolic in keeping with both volume and pressure overload of the right ventricle. Severe right atrial dilatation. 4. Small pericardial effusion measuring maximum 1.3 cm over the basal inferior segment of the left ventricle. No diastolic chamber collapse. No significant variation of intracardiac velocities. 5. Moderate mitral annular calcification with trace mitral regurgitation. No mitral stenosis. 6. moderate aortic valve sclerosis of a 3-cuspid aortic valve. No aortic stenosis or regurgitation. 7. Increased thickness of the intraventricular septum, consider lipomatous hypertrophy of the anterior atrial septum versus infiltrative disease such as amyloidosis. ADDITIONAL COMMENTS/RECOMMENDATIONS: Consider cardiac amyloidosis. MTDD
[2020-03-29] MEDS ORDERED: D3-5CAP PO (15:53)
[2020-03-29] MEDS ORDERED: NEUR100C PO (15:53)
== END 2020-03-08 14:05 | disposition home or self-care (01) ==
LOC: M ED 12:01 → M ED INP 12:02 → ENRESERV 18:53 → M MS5PR 20:35
PROVIDERS: ADMIT Internal Medicine Nephrology; ATTEND Family Medicine
DX: J96.21 Acute and chronic respiratory failure with hypoxia (principal); J44.9 Chronic obstructive pulmonary disease, unspecified; I48.20 Chronic atrial fibrillation, unspecified; E11.40 Type 2 diabetes mellitus with diabetic neuropathy, unspecified; E78.5 Hyperlipidemia, unspecified; G47.33 Obstructive sleep apnea (adult) (pediatric); I27.0 Primary pulmonary hypertension; I27.81 Cor pulmonale (chronic); I25.10 Atherosclerotic heart disease of native coronary artery without angina pectoris; I73.00 Raynaud's syndrome without gangrene; C34.11 Malignant neoplasm of upper lobe, right bronchus or lung; Z92.3 Personal history of irradiation; L71.9 Rosacea, unspecified; F43.20 Adjustment disorder, unspecified; K57.92 Diverticulitis of intestine, part unspecified, without perforation or abscess without bleeding; D51.9 Vitamin B12 deficiency anemia, unspecified; Z79.01 Long term (current) use of anticoagulants; Z79.52 Long term (current) use of systemic steroids; Z79.899 Other long term (current) drug therapy; Z87.891 Personal history of nicotine dependence
CPT/HCPCS: 36415; 71045; 71275; 80048; 80076; 82550; 82553; 82803; 83735; 83880; 84443; 84484; 85025; 85027; 93005; 93041; 93306; 94640; 96374; 96375; 96376; 99285; G0378; J1940; J2920; J2930; Q9967

== ENCOUNTER 2020-05-31 07:39 | Inpatient (IN) | payer MEDICARE ==
[~2020-05-31] VITALS: Ht 152.4 cm; Wt 71.0 kg
[~2020-05-31 07:39] MED LIST changes: +ATOR1TAB21 PO; +AZIT-12 PO; +B-12100010 PO; +BIOT10009 PO; +COMBAER6 INH; +D3-5CAP PO; +DOCU100C16 PO; +DOCU100C17 PO; +NEUR100C PO; +PRED20TA PO
--- NOTE | 2020-05-31 08:03 | REP ---
INDICATION: DYSPNEA/COUGH COMPARISON: 03/06/2020 TECHNIQUE: Portable AP view of the chest FINDINGS: The mediastinum and cardiac silhouette are stable and within normal limits for portable technique. Allowing for variations in technique, the lung cameron are relatively stable. And ill-defined suspicious opacity in the right midlung zone and subtle right basilar opacity are again suspected. IMPRESSION: No significant change from prior examination. Continued ill-defined opacity in the right midlung zone and right base. <Electronically signed by Mathew Sparks > 05/31/20 0800
[2020-05-31] MEDS ORDERED: methylPREDNISolone 125MG 2ML VIAL IV ONE (08:15)
[2020-05-31 08:31] LABS: BASO # 0.1 10^3/uL (0.0-0.2); BASO % 0.6 % (0.0-1.0); EOS # 0.2 10^3/uL (0.0-0.5); EOS % 1.1 % (0.0-3.0); HEMATOCRIT 40.1 % (36.0-47.0); HEMOGLOBIN 12.2 g/dl (12.0-15.5); LYMPH # 2.2 10^3/uL (1.5-5.0); LYMPH % 13.8 % (24.0-44.0); MEAN CORPUSCULAR HEMOGLOBIN 31.5 pg (27.0-33.0); MEAN CORPUSCULAR HGB CONC 30.4 g/dl (32.0-36.5); MEAN CORPUSCULAR VOLUME 103.6 fl (80.0-96.0); MONO # 0.8 10^3/uL (0.0-0.8); NEUTROPHILS # 12.5 10^3/uL (1.5-8.5); NEUTROPHILS % 79.1 % (36.0-66.0); PLATELET COUNT, AUTOMATED 263 10^3/uL (150-450); RED BLOOD COUNT 3.87 10^6/uL (4.00-5.40); WHITE BLOOD COUNT 15.8 10^3/uL (4.0-10.0)
[2020-05-31 08:59] LABS: ALBUMIN 3.7 GM/DL (3.2-5.2); ALT/SGPT 16 U/L (12-78); BILIRUBIN,DIRECT 0.1 MG/DL (0.0-0.2); BILIRUBIN,TOTAL 0.4 MG/DL (0.2-1.0); BLOOD UREA NITROGEN 10 MG/DL (7-18); CALCIUM LEVEL 8.8 MG/DL (8.8-10.2); CARBON DIOXIDE LEVEL 31 MEQ/L (21-32); CHLORIDE LEVEL 102 MEQ/L (98-107); CK-MB VALUE MASS 2.1 NG/ML (<3.6); CPK CREATINE PHOSPHOKINASE 29 U/L (26-192); CREATININE FOR GFR 0.47 MG/DL (0.55-1.30); GLOMERULAR FILTRATION RATE > 60.0 (>39); GLUCOSE, FASTING 198 MG/DL (70-100); MB/CK RELATIVE INDEX 7.24 (< OR =4); NT-PRO BNP 235 PG/ML (<450); POTASSIUM SERUM 3.4 MEQ/L (3.5-5.1); SODIUM LEVEL 140 MEQ/L (136-145); TOTAL PROTEIN 7.3 GM/DL (6.4-8.2); TROPONIN I < 0.02 NG/ML (< 0.10)
[2020-05-31] MEDS: BRIMONIDINE 0.1% OPHTH SOLN 5 ML OU SCH ×2 (09:00→21:00)
[2020-05-31] MEDS ORDERED: DOCUSATE SODIUM 100MG CAPSULE PO PRN (09:00)
[2020-05-31] MEDS: VITAMIN D 1,000 INTERNATIONAL UNITS TABLET PO SCH (09:00)
[2020-05-31] MEDS: COMBIVENT RESPIMAT 100-20MCG INHALER 4GM INH SCH ×3 (09:07→09:59)
[2020-05-31 09:25] LABS: RSV AMPLIFICATION NEGATIVE (NEGATIVE)
[2020-05-31] MEDS ORDERED: ISOVUE-370 76% 100ML VIAL As Ordered ONE (09:52)
--- NOTE | 2020-05-31 10:48 | REP ---
INDICATION: HYPOXIA COMPARISON: None. TECHNIQUE: Axial contrast enhanced images from the thoracic inlet to the upper abdomen using pulmonary embolus technique with multiplanar re-formations. 75 ml Isovue 370 intravenous contrast material administered without complication. This CT examination was performed using the following dose reduction techniques: Automated exposure control, adjustment of mA and/or kv according to the patient's size, and use of iterative reconstruction technique. FINDINGS: Satisfactory enhancement of the pulmonary vasculature is achieved and no filling defects are identified to suggest pulmonary embolus. Ill-defined area of consolidation with spiculated margins and surrounding ground-glass opacity along the posterior basilar aspect of the right upper lobe measures approximately 4.2 x 3.5 x 1.6 cm and appears increased from prior examination. Finding is highly suspicious for neoplasm. Nonspecific mediastinal and hilar lymph nodes are identified measuring up to approximately 10 mm short axis diameter. Advanced chronic COPD/emphysematous disease with bronchiectasis and scattered scarring noted. Trace left basilar atelectasis identified. Few smaller scattered pulmonary nodules measuring up to approximately 4-5 mm in the right apex and right lung are nonspecific but appear either stable or decreased as compared to prior examination. Further evaluation of the mediastinum demonstrates atherosclerotic changes to the thoracic aorta and coronary arteries. No aortic aneurysm or dissection. No cardiomegaly or pericardial effusion. Surrounding musculoskeletal structures demonstrate age-related degenerative changes without focal osseous abnormality. IMPRESSION: 1. No evidence for pulmonary embolus. 2. Area of consolidation in the posterior basilar right upper lobe with spiculated margins and subtle surrounding ground-glass opacities most concerning for neoplasm and increased from prior examination. 3. Chronic COPD/emphysematous changes with scattered scarring and minimal left basilar atelectasis. <Electronically signed by Mathew Sparks > 05/31/20 [id number]
[2020-05-31] MEDS ORDERED: BREO1INH3 INH (11:22)
[2020-05-31] MEDS ORDERED: VITA200012 PO (11:22)
[2020-05-31] MEDS ORDERED: PROAAER10 INH (11:22)
[2020-05-31] MEDS ORDERED: ALB2.5NEB INH (11:22)
[2020-05-31] MEDS ORDERED: CHLO25TA PO (11:22)
[2020-05-31] MEDS ORDERED: MM S100C PO (11:22)
[2020-05-31] MEDS ORDERED: DEXTROSE 50% 50 ML SYRINGE IV PRN (12:45)
[2020-05-31] MEDS ORDERED: GLUCAGON INJ 1MG VIAL SC PRN (12:45)
[2020-05-31] MEDS ORDERED: GLUCOSE 4GM CHEW TABLET PO PRN (12:45)
[2020-05-31] MEDS ORDERED: methylPREDNISolone 125MG 2ML VIAL IV SCH (13:00)
[2020-05-31] MEDS ORDERED: ACETAMINOPHEN TAB 650MG DOSE (2X325MG) PO PRN (13:00)
[2020-05-31] MEDS ORDERED: NITROGLYCERIN 0.4 MG SUBL TABLET SL PRN (13:00)
[2020-05-31] MEDS ORDERED: cefTRIAXone SOD 1 GM in D5W MINI-BAG PLUS 50 ML IV SCH (13:00)
[2020-05-31] MEDS ORDERED: ALBUTEROL SULFATE 2.5 MG/0.5 ML INH NEB SOLN NEB PRN (13:00)
[2020-05-31] MEDS: ADVAIR HFA 230/21MCG INHALER INH SCH ×2 (13:24→19:28)
[2020-05-31] MEDS: TIOTROPIUM INHALER/CAPSULE (SPIRIVA) INH SCH (13:25)
[2020-05-31] MEDS ORDERED: DOXYCYCLINE HYCLATE 100 MG in D5W MINI-BAG PLUS 100 ML IV SCH (14:00)
[2020-05-31] MEDS: IPRATROPIUM 0.5MG/ALBUTEROL 2.5MG INH SOL UD 3ML (DUONEB) NEB SCH ×2 (14:00→19:28)
[2020-05-31] MEDS ORDERED: PILL CUTTER 1 EACH XX ONE (15:06)
[2020-05-31] MEDS: POTASSIUM CHLORIDE 10 MEQ SR TABLET PO SCH (15:07)
[2020-05-31] MEDS: GABAPENTIN 100 MG CAP PO SCH ×2 (15:07→23:16)
[2020-05-31] MEDS: diltiaZEM **CD** 180 MG CAP PO SCH (15:08)
[2020-05-31] MEDS: CYANOCOBALAMIN 500 MCG TAB PO SCH (15:08)
[2020-05-31] MEDS: CHLORTHALIDONE 25 MG TAB PO SCH (15:09)
[2020-05-31] MEDS: LOSARTAN 50MG TABLET PO SCH (15:10)
[2020-05-31] MEDS: ASCORBIC ACID 250 MG TAB PO SCH (15:12)
[2020-05-31 16:30] VITALS: BP 134/74
[2020-05-31] MEDS: methylPREDNISolone 125MG 2ML VIAL IV SCH (17:23)
[2020-05-31] MEDS: HumaLOG INSULIN (NovoLOG) PER UNIT SC SCH ×2 (17:24→21:00)
--- NOTE | 2020-05-31 17:37 | ECGEPIP ---
[facility] - ED Test Date: 2020-05-31 Pat Name: BARRY JACOBO Department: Room: [place] [address] Gender: Female Size Painter: : 1940 Requested By: LV BALLARD Order Number: [id number] Reading MD: Teresa Cota Measurements Intervals [place] Rate: 88 P: NH: 0 QRS: 102 QRSD: 79 T: -38 QT: 276 QTc: 334 Interpretive Statements ATRIAL FIBRILLATION WITH ABERRANT CONDUCTION OR VENTRICULAR PREMATURE COMPLEXES POSSIBLE RIGHT VENTRICULAR HYPERTROPHY ANTEROSEPTAL MYOCARDIAL INFARCTION, PROBABLY OLD SIMILAR 03/07/20 Electronically Signed on 05-31-2020 17:37:11 EST by Teresa Cota
--- NOTE | 2020-05-31 19:07 | HPEPDOC ---
[facility] Medical History & Physical Date of Admission May 31, 2020 Date of Service: May 31, 2020 Attending Physician: OCTAVIANO RIOS MD History and Physical CHIEF COMPLAINT: SOB, increasing oxygen demand HISTORY OF PRESENT ILLNESS: 80-year-old W with a history of non-small cell lung cancer treated only with radiation in 2016 with nodules being followed by oncology in [place], COPD, chronic hypoxic respiratory failure on baseline 2L NC, diabetes with neuropathy, atrial fibrillation on rivaroxaban, sleep apnea, pulmonary hypertension, hyperlipidemia, hypertension, coronary artery disease who presented to the hospital due to shortness of breath without changes to her baseline cough, and no new congestion or rhinorrhea, chest pain, palpitations, worsening peripheral edema, PND, orthopnea but with increased shortness of breath. On arrival to the ED, she was saturating at 78% on her home 2 L of oxygen at rest and required to be increase to 4-5L to saturate above 88%. Workup was no table for leukocytosi to 15.8, Hgb 12.2, platelets 263, proBNP wnl, troponin wnl, procalcitonin now noted to be wnl at <0.05, LFTs wnl Na 140, K 3.4, Cr 0.47. She was admitted for a COPD exacerbation and acute on chronic hypoxic respiratory failure. CTA chest showed no evidence for pulmonary embolus but did show an area of consolidation in the posterior basilar right upper lobe with spiculated margins and subtle surrounding ground-glass opacities most concerning for neoplasm and increased from prior examination as well as chronic emphysematous changes with scattered scarring and minimal left basilar atelectasis. 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 COPD WITH CHRONIC HYPOXIC RESP FAILURE WITH PULMONARY HYPERTENSION CORONARY ARTERY DISEASE (CATH SEPTEMBER 2016) RAYNAUDS SYNDROME SLEEP APNEA WITH PULMONARY HYPERTENSION HYPERLIPIDEMIA HTN ROSACEA DIVERTICULOSIS GLAUCOMA HEMORRHOIDS ADJUSTMENT DISORDER Vit B12 def Surgical History HYSTERECTOMY GALLBLADDER BREAST BIOPSY CATARACT SURGERY/AND LASER SURGERY D&C A&P REPAIR FOOT SURGERY Family History FATHER: 57 YRS, ANEURYSM MOTHER: 67 YRS, LUNG CANCER Social History Smoker: former Smoker Alcohol: Denies Drugs: denies Review of Systems: as per HPI. 12 point ROS was otherwise negative. Physical Examination General: Alert, Cooperative, No Acute Distress Eye: PERRLA, Conjunctiva & lids normal, EOMI, anicteric ENT: Atraumatic, Mucous membr. moist/pink, Pharynx Normal Neck: Supple, no JVD or thyromegaly Chest: Trace bibasilar crackles otherwise clear without wheezing or rhonchi Heart: Rate Normal, Regular Rhythm, Normal S1, Normal S2, no mrg Abdomen: Normal bowel sounds, Soft, NTND Extremities: No LE edema, Normal pulses, WWP Neuro: Normal Speech, Cranial Nerves 3-12 NL, moving all extremities Labs and imaging: as noted above Assessment/Plan 80-year-old W with a history of non-small cell lung cancer treated with only radiation in 2017, COPD, chronic hypoxic respiratory failure on 2L NC, diabetes with neuropathy, atrial fibrillation, sleep apnea, pulmonary hypertension, hyperlipidemia, hypertension, coronary artery disease who is admitted for acute on chronic respiratory failure and COPD exacerbation. Acute and chronic hypoxic respiratory failure -Likely 2/2 COPD exacerbation. -Influenza and covid-19 negative -Unlikely bacterial infection given negative procalcitonin, will discontinue ceftriaxone/doxy -will treat for COPD exacerbation per below -will need to f/u with oncology for interval increase in spiculated RUL mass/nodule COPD exacerbation: -methylpred 80Q8 IV -duonebs q6h -albuterol nebs q4h PRN -incentive spirometry -mucinex -continue home mdis with spiriva and advair substitutes -dc abx given negative procal Right upper lobe lung cancer -Needs onc follow up for potential interval growth of spiculated mass/nodule Chronic A fib -c/w xarelto, diltiazem for rate control. Diabetes with neuropathy -carb consistent diet, lispro as per sliding scale, FS Ac and HS. -Hold metformin Hypertension -diltiazem, losartan, HCTZ Hyperlipidemia -home statin PATY with pulmonary hypertension/ corpulmonale -compensated, euvolemic CAD -c/w home meds DVT ppx: on xarelto Vital Signs Vital Signs Date Time Temp Pulse Resp B/P (MAP) Pulse Ox O2 Delivery O2 Flow Rate FiO2 05/31/20 16:30 3.0 1/5/21 16:30 97.4 80 20 134/74 (94) 92 Nasal Cannula Laboratory Data Labs 24H Laboratory Tests 2 05/31/20 07:59: POC Troponin I (Misc) 0.00 05/31/20 08:14: Coronavirus (COVID-19)(PCR) NEGATIVE, Influenza Type A (RT-PCR) NEGATIVE, Influenza Type B (RT-PCR) NEGATIVE, Respiratory Syncytial Virus (PCR) NEGATIVE 05/31/20 08:16: Immature Granulocyte % (Auto) 0.4, Neutrophils (%) (Auto) 79.1H, Lymphocytes (%) (Auto) 13.8L, Monocytes (%) (Auto) 5.0, Eosinophils (%) (Auto) 1.1, Basophils (%) (Auto) 0.6, Neutrophils # (Auto) 12.5H, Lymphocytes # (Auto) 2.2, Monocytes # (Auto) 0.8, Eosinophils # (Auto) 0.2, Basophils # (Auto) 0.1, Nucleated Red Blood Cells % (auto) 0.0, Anion Gap 7L, Glomerular Filtration Rate > 60.0, Calcium Level 8.8, Total Bilirubin 0.4, Direct Bilirubin 0.1, Aspartate Amino Transf (AST/SGOT) 12, Alanine Aminotransferase (ALT/SGPT) 16, Alkaline Phosphatase 93, Total Creatine Kinase 29, Creatine Kinase MB 2.1, Creatine Kinase MB Relative Index 7.24H, Troponin I < 0.02, IZ-[id number]-G-Type Natriuretic Peptide 235, Total Protein 7.3, Albumin 3.7, Albumin/Globulin Ratio 1.0L, P rocalcitonin <0.05 05/31/20 09:01: POC pH (Misc Panel) 7.329L, POC Base Excess (Misc Panel) 5.0H, POC Saturated Percent O2 (Misc) 97, POC pO2 (Misc Panel) 106.0H, POC pCO2 (Misc Panel) 58.2H, POC HCO3 (Misc Panel) 30.6H, POC Total CO2 (Misc Panel) 32.0H 05/31/20 10:39: 05/31/20 17:19: Bedside Glucose (Misc Panel) 240H CBC/BMP Laboratory Tests 05/31/20 08:16 Microbiology Microbiology 05/31/20 Blood Culture, Received Pending 05/31/20 Blood Culture, Received Pending Home Medications Scheduled Albuterol Sulfate (Albuterol Sulfate) 2.5 Mg/0.5 Ml Vial.neb, 2.5 MG INH BID Ascorbic Acid/Vitamin E/Biotin (Hair Skin Nails-Biotin Gummies) 1 Each Tab.chew, 1 TAB PO DAILY Atorvastatin Calcium (Atorvastatin Calcium) 40 Mg Tablet, 40 MG PO QHS Biotin (Biotin) 1,000 Mcg Tab.chew, 1,000 MCG PO DAILY Brinzolamide/Brimonidine Tart (Simbrinza 1%-0.2% Eye Drops) 1 Stefania Stefania, 1 DROP OU BID Chlorthalidone (Chlorthalidone) 25 Mg Tablet, 12.5 MG PO DAILY Cholecalciferol (Vitamin D3) (D3-2000) 50 Mcg Capsule, 50 MCG PO DAILY Cyanocobalamin (Vitamin B-12) (Vitamin B-12) 1,000 Mcg Capsule, 1,000 MCG PO DAILY Diltiazem HCl (Dilt-Xr) 180 Mg Cap.er.deg, 180 MG PO DAILY Fluticasone/Vilanterol (Breo Ellipta 200-25 Mcg INH) 1 Each Blst.w.dev, 1 PUFF INH DAILY Gabapentin (Neurontin) 100 Mg Capsule, 100 MG PO BID Losartan Potassium (Losartan Potassium) 50 Mg Tablet, 50 MG PO DAILY Metformin HCl (Metformin HCl) 1,000 Mg Tab, 1,000 MG PO BID Multivitamins (Thera M Plus Tablet) 1 Tab Tab, 1 TAB PO DAILY Potassium Chloride (Klor-Con M10) 10 Meq Tabcr, 10 MEQ PO DAILY Rivaroxaban (Xarelto) 20 Mg Tab, 20 MG PO QPM Umeclidinium [place] (Incruse Ellipta) 62.5 Mcg Blst.w.dev, 1 PUFF INH DAILY Scheduled PRN Albuterol Sulfate (Proair Hfa) 8.5 Gm Hfa.aer.ad, 2 PUFF INH Q6H PRN for SOB/WHEEZING Docusate Sodium (Stool Softener) 100 Mg Capsule, 100 MG PO BID PRN for CONSTIPATION Ipratropium/Albuterol Sulfate (Combivent Respimat 20-100 Mcg) 4 Gm Mist.inhal, 1 PUFF INH Q6HP PRN for SHORTNESS OF BREATH Nitroglycerin (Nitroglycerin) 0.4 Mg Sub, 0.4 MG SL NITRO PRN for ANGINA Allergies Coded Allergies: No Known Allergies (Unverified , 07/11/19) A-FIB/CHADSVASC A-FIB History Current/History of A-Fib/PAF?: Yes Current PO Anticoag Therapy: Yes Treatment Treatment ordered: Rivaroxaban OCTAVIANO RIOS MD May 31, 2020 19:07
[2020-05-31 22:00] VITALS: BP 111/50
[2020-05-31] MEDS: RIVAROXABAN 20 MG TAB (XARELTO) PO SCH (23:16)
[2020-05-31] MEDS: ATORVASTATIN 20 MG TAB PO SCH (23:16)
[2020-06-01] MEDS: methylPREDNISolone 125MG 2ML VIAL IV SCH ×3 (00:56→17:46)
[2020-06-01] MEDS: IPRATROPIUM 0.5MG/ALBUTEROL 2.5MG INH SOL UD 3ML (DUONEB) NEB SCH ×4 (02:00→19:53)
[2020-06-01] MEDS ORDERED: PILL CUTTER 1 EACH XX PRN ×2 (05:45)
[2020-06-01 06:00] VITALS: BP 124/59
[2020-06-01 07:18] LABS: HEMATOCRIT 37.6 % (36.0-47.0); HEMOGLOBIN 11.7 g/dl (12.0-15.5); MEAN CORPUSCULAR HEMOGLOBIN 31.7 pg (27.0-33.0); MEAN CORPUSCULAR HGB CONC 31.1 g/dl (32.0-36.5); MEAN CORPUSCULAR VOLUME 101.9 fl (80.0-96.0); PLATELET COUNT, AUTOMATED 255 10^3/uL (150-450); RED BLOOD COUNT 3.69 10^6/uL (4.00-5.40); WHITE BLOOD COUNT 7.1 10^3/uL (4.0-10.0)
--- NOTE | 2020-06-01 07:41 | IPNPDOC ---
Date Seen The patient was seen on 06/01/20. Progress Note S: feels better. breathing is improved with less wheezing no c/o f/c/cough O: PE VS see below GEN: aaox 3 no conversational dyspnea HEENT: no jvd, stridor, carotid bruits. dry mm Lungs: diminished, faint expiratory wheezing b/l Heart: S1 S2 nondisplaced PMI RRR Abd: +bs soft nt nd Ext: no c/c/e Labs/imaging/microbiology: see below A: 80 y/o F w NSCL cancer, copd, chronic hypoxic resp failure on 2 liters o2, chronic afib c/o sob admitted for copd exacerbation with persistent spiculated lung nodules. 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 CORONARY ARTERY DISEASE (CATH SEPTEMBER 2016) RAYNAUDS SYNDROME SLEEP APNEA HYPERLIPIDEMIA HTN ROSACEA DIVERTICULOSIS GLAUCOMA HEMORRHOIDS ADJUSTMENT DISORDER Vit B12 def PLAN: Improving with iv solumedrol, but not ready for po prednisone. continue w present supportive care. keep o2 sat 88-94%, and not any higher due to risk of decreasing respiratory drive and causing hypercarbia and acute respiratory acidosis with mental status changes. continued on home meds. pt has fu appt with her medical oncologist, and found to have persistent spiculated nodules that they are monitoring. no pleural effusion, or postobstructive pneumonia noted on CT chest to warrant further testing and antibiotics. Pt is much more comfortable today, and PT will be consulted. 2-3 more days of inpt care, and may discharge home if stable later in the week either or saturday pending clinical improvement. VS, I&O, 24H, Fishbone Vital Signs/I&O Vital Signs Date Time Temp Pulse Resp B/P (MAP) Pulse Ox O2 Delivery O2 Flow Rate FiO2 06/01/20 06:00 97.9 75 20 124/59 (80) 96 Nasal Cannula 3.0 I&O- Last 24 Hours up to 6 AM 06/01/20 06:00 Intake Total 330 ml Output Total 250 ml Balance 80 ml Laboratory Data 24H LABS Laboratory Tests 2 05/31/20 07:59: POC Troponin I (Misc) 0.00 05/31/20 08:14: Coronavirus (COVID-19)(PCR) NEGATIVE, Influenza Type A (RT-PCR) NEGATIVE, Influenza Type B (RT-PCR) NEGATIVE, Respiratory Syncytial Virus (PCR) NEGATIVE 05/31/20 08:16: Immature Granulocyte % (Auto) 0.4, Neutrophils (%) (Auto) 79.1H, Lymphocytes (%) (Auto) 13.8L, Monocytes (%) (Auto) 5.0, Eosinophils (%) (Auto) 1.1, Basophils (%) (Auto) 0.6, Neutrophils # (Auto) 12.5H, Lymphocytes # (Auto) 2.2, Monocytes # (Auto) 0.8, Eosinophils # (Auto) 0.2, Basophils # (Auto) 0.1, Nucleated Red Blood Cells % (auto) 0.0, Anion Gap 7L, Glomerular Filtration Rate > 60.0, Calcium Level 8.8, Total Bilirubin 0.4, Direct Bilirubin 0.1, Aspartate Amino Transf (AST/SGOT) 12, Alanine Aminotransferase (ALT/SGPT) 16, Alkaline Phosph atase 93, Total Creatine Kinase 29, Creatine Kinase MB 2.1, Creatine Kinase MB Relative Index 7.24H, Troponin I < 0.02, DX-[id number]-B-Type Natriuretic Peptide 235, Total Protein 7.3, Albumin 3.7, Albumin/Globulin Ratio 1.0L, Procalcitonin <0.05 05/31/20 09:01: POC pH (Misc Panel) 7.329L, POC Base Excess (Misc Panel) 5.0H, POC Saturated Percent O2 (Misc) 97, POC pO2 (Misc Panel) 106.0H, POC pCO2 (Misc Panel) 58.2H, POC HCO3 (Misc Panel) 30.6H, POC Total CO2 (Misc Panel) 32.0H 05/31/20 10:39: 05/31/20 17:19: Bedside Glucose (Misc Panel) 240H 05/31/20 20:28: Bedside Glucose (Misc Panel) 231H 06/01/20 06:47: Nucleated Red Blood Cells % (auto) 0.0 CBC/BMP Laboratory Tests 05/31/20 08:16 06/01/20 06:47 Microbiology Microbiology 06/01/20 Gram Stain, Received Pending 06/01/20 Sputum Culture, Received Pending 05/31/20 Blood Culture, Received Pending 05/31/20 Blood Culture, Received Pending NI HARDWICK MD Jun 01, 2020 07:24
[2020-06-01] MEDS: TIOTROPIUM INHALER/CAPSULE (SPIRIVA) INH SCH (07:48)
[2020-06-01] MEDS: ADVAIR HFA 230/21MCG INHALER INH SCH ×2 (07:48→19:53)
[2020-06-01 07:53] LABS: BLOOD UREA NITROGEN 15 MG/DL (7-18); CARBON DIOXIDE LEVEL 32 MEQ/L (21-32); CHLORIDE LEVEL 102 MEQ/L (98-107); CREATININE FOR GFR 0.54 MG/DL (0.55-1.30); GLOMERULAR FILTRATION RATE > 60.0 (>39); GLUCOSE, FASTING 202 MG/DL (70-100); POTASSIUM SERUM 3.4 MEQ/L (3.5-5.1); SODIUM LEVEL 140 MEQ/L (136-145)
[2020-06-01] MEDS: HumaLOG INSULIN (NovoLOG) PER UNIT SC SCH ×4 (08:44→20:49)
[2020-06-01] MEDS: ASCORBIC ACID 250 MG TAB PO SCH (08:45)
[2020-06-01] MEDS: BRIMONIDINE 0.1% OPHTH SOLN 5 ML OU SCH ×2 (08:45→20:52)
[2020-06-01] MEDS: CYANOCOBALAMIN 500 MCG TAB PO SCH (08:45)
[2020-06-01] MEDS: MULTIVITAMINS/MINERALS THERAP 1 TAB PO SCH (08:45)
[2020-06-01] MEDS: GABAPENTIN 100 MG CAP PO SCH ×2 (08:45→20:49)
[2020-06-01] MEDS: diltiaZEM **CD** 180 MG CAP PO SCH (08:45)
[2020-06-01] MEDS: POTASSIUM CHLORIDE 10 MEQ SR TABLET PO SCH (08:46)
[2020-06-01] MEDS: LOSARTAN 50MG TABLET PO SCH (08:46)
[2020-06-01] MEDS: CHLORTHALIDONE 25 MG TAB PO SCH (08:46)
[2020-06-01] MEDS: VITAMIN D 1,000 INTERNATIONAL UNITS TABLET PO SCH (08:46)
[2020-06-01 14:00] VITALS: BP 120/62
[2020-06-01] MEDS: ATORVASTATIN 20 MG TAB PO SCH (20:48)
[2020-06-01] MEDS: RIVAROXABAN 20 MG TAB (XARELTO) PO SCH (20:49)
[2020-06-01 22:00] VITALS: BP 124/66
[2020-06-02] MEDS: methylPREDNISolone 125MG 2ML VIAL IV SCH (01:58)
[2020-06-02] MEDS: IPRATROPIUM 0.5MG/ALBUTEROL 2.5MG INH SOL UD 3ML (DUONEB) NEB SCH ×3 (02:00→14:00)
[2020-06-02 06:00] VITALS: BP 121/66
[2020-06-02 06:47] LABS: HEMATOCRIT 37.3 % (36.0-47.0); HEMOGLOBIN 11.7 g/dl (12.0-15.5); MEAN CORPUSCULAR HEMOGLOBIN 31.6 pg (27.0-33.0); MEAN CORPUSCULAR HGB CONC 31.4 g/dl (32.0-36.5); MEAN CORPUSCULAR VOLUME 100.8 fl (80.0-96.0); PLATELET COUNT, AUTOMATED 257 10^3/uL (150-450); WHITE BLOOD COUNT 11.2 10^3/uL (4.0-10.0)
[2020-06-02 07:24] LABS: BLOOD UREA NITROGEN 22 MG/DL (7-18); CALCIUM LEVEL 8.5 MG/DL (8.8-10.2); CARBON DIOXIDE LEVEL 33 MEQ/L (21-32); CHLORIDE LEVEL 101 MEQ/L (98-107); CREATININE FOR GFR 0.64 MG/DL (0.55-1.30); GLOMERULAR FILTRATION RATE > 60.0 (>39); GLUCOSE, FASTING 211 MG/DL (70-100); POTASSIUM SERUM 3.6 MEQ/L (3.5-5.1); SODIUM LEVEL 140 MEQ/L (136-145)
[2020-06-02] MEDS ORDERED: POTASSIUM CHLORIDE 10 MEQ SR TABLET PO ONE (07:30)
--- NOTE | 2020-06-02 08:17 | IPNPDOC ---
Date Seen The patient was seen on 06/02/20. Progress Note S: c/o difficult to expectorate cough, no fever/chills/sob did not go outside the room yesterday because"so many things were going on." wants to go home today but still on iv solumedrol. no chest pain, pressure, dizziness, or lightheadedness O: PE VS see below GEN: aaox 3 no conversational dyspnea no pallor HEENT: no use of acc resp mm no jvd, stridor, carotid bruits. dry mm face symmetric tongue midline trachea midline Lungs: diminished, prolonged expiration Heart: S1 S2 nondisplaced PMI RRR Abd: +bs soft nt nd no rebound or guarding Ext: no c/c/e Labs/imaging/microbiology: see below A: 80 y/o F w NSCL cancer, copd, chronic hypoxic resp failure on 2 liters o2, chronic afib c/o sob admitted for copd exacerbation with persistent spiculated lung nodules. 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 CORONARY ARTERY DISEASE (CATH SEPTEMBER 2016) RAYNAUDS SYNDROME SLEEP APNEA HYPERLIPIDEMIA HTN ROSACEA DIVERTICULOSIS GLAUCOMA HEMORRHOIDS ADJUSTMENT DISORDER Vit B12 def PLAN:improved on solumedrol, and ready to taper to po prednisone. anxious to go home. may dc home if cleared by therapy and stable on prednisone either today or in am. VS, I&O, 24H, [place] Vital Signs/I&O Vital Signs Date Time Temp Pulse Resp B/P (MAP) Pulse Ox O2 Delivery O2 Flow Rate FiO2 06/02/20 06:00 97.8 77 17 121/66 (84) 96 Nasal Cannula 2.0 I&O- Last 24 Hours up to 6 AM 06/02/20 06:00 Intake Total 1150 ml Output Total 500 ml Balance 650 ml Laboratory Data 24H LABS Laboratory Tests 2 06/01/20 11:35: Bedside Glucose (Misc Panel) 233H 06/01/20 16:49: Bedside Glucose (Misc Panel) 278H 06/01/20 20:05: Bedside Glucose (Misc Panel) 178H 06/02/20 06:37: Nucleated Red Blood Cells % (auto) 0.0, Anion Gap 6L, Glomerular Filtration Rate > 60.0, Calcium Level 8.5L CBC/BMP Laboratory Tests 06/02/20 06:37 Microbiology Microbiology 06/01/20 Gram Stain - Final, Resulted 06/01/20 Sputum Culture, Resulted Pending 05/31/20 Blood Culture - Preliminary, Resulted No growth after 24 hours . All specim... 05/31/20 Blood Culture - Preliminary, Resulted No growth after 24 hours . All specim... NI HARDWICK MD Jun 02, 2020 08:17
[2020-06-02] MEDS ORDERED: PRED10TA2 PO ×2 (08:25)
--- NOTE | 2020-06-02 08:34 | DS.PDOC ---
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 CORONARY ARTERY DISEASE (CATH SEPTEMBER 2016) RAYNAUDS SYNDROME SLEEP APNEA HYPERLIPIDEMIA HTN ROSACEA DIVERTICULOSIS GLAUCOMA HEMORRHOIDS ADJUSTMENT DISORDER Vit B12 def DISCHARGE MEDICATIONS: SEE BELOW ALLERGIES: SEE BELOW DISCHARGE INSTRUCTIONS: PULM AND PCP APPT WITHIN 7DAYS. HOSPITAL COURSE: 80 y/o F w NSCL cancer, copd, chronic hypoxic resp failure on 2 liters o2, chronic afib c/o sob admitted for copd exacerbation with persistent spiculated lung nodules. Patient improved with iv solumedrol, and transitioned to po prednisone., with o2 sat 88-94%, and not any higher due to risk of decreasing respiratory drive and causing hypercarbia and acute respiratory acidosis with mental status changes. continued on home meds. pt has fu appt with her medical oncologist, and found to have persistent spiculated nodules that they are monitoring. no pleural effusion, or postobstructive pneumonia noted on CT chest to warrant further testing and antibiotics. Pt is much more comfortable today. She c/o difficult to expectorate cough and was given mucinex, acapella, and encouraged to use her spirometry. negative covid 19 and blood cultures. DISCHARGE PE VS see below GEN: aaox 3 no conversational dyspnea no pallor HEENT: no use of acc resp mm no jvd, stridor, carotid bruits. dry mm face symmetric tongue midline trachea midline Lungs: diminished, prolonged expiration Heart: S1 S2 nondisplaced PMI RRR Abd: +bs soft nt nd no rebound or guarding Ext: no c/c/e Labs/imaging/microbiology: see below 05/31/20 ct chest: Advanced chronic COPD/emphysematous disease with bronchiectasis and scattered scarring noted. Trace left basilar atelectasis identified. Few smaller scattered pulmonary nodules measuring up to approximately 4-5 mm in the right apex and right lung are nonspecific but appear either stable or decreased as compared to prior examination. Further evaluation of the mediastinum demonstrates atherosclerotic changes to the thoracic aorta and coronary arteries. No aortic aneurysm or dissection. No cardiomegaly or pericardial effusion. Surrounding musculoskeletal structures demonstrate age-related degenerative changes without focal osseous abnormality. IMPRESSION: 1. No evidence for pulmonary embolus. 2. Area of consolidation in the posterior basilar right upper lobe with spiculated margins and subtle surrounding ground-glass opacities most concerning for neoplasm and increased from prior examination. 3. Chronic COPD/emphysematous changes with scattered scarring and minimal left basilar atelectasis. <Electronically signed by Mathew Sparks > 05/31/20 1044 TIME SPENT ON DISCHARGE: 30 MIN Vital Signs/I&Os Vital Signs Date Time Temp Pulse Resp B/P (MAP) Pulse Ox O2 Delivery O2 Flow Rate FiO2 06/02/20 06:00 97.8 77 17 121/66 (84) 96 Nasal Cannula 2.0 I&O- Last 24 Hours up to 6 AM 06/02/20 06:00 Intake Total 1150 ml Output Total 500 ml Balance 650 ml Laboratory Data Labs 24H Laboratory Tests 2 06/01/20 11:35: Bedside Glucose (Misc Panel) 233H 06/01/20 16:49: Bedside Glucose (Misc Panel) 278H 06/01/20 20:05: Bedside Glucose (Misc Panel) 178H 06/02/20 06:37: Nucleated Red Blood Cells % (auto) 0.0, Anion Gap 6L, Glomerular Filtration Rate > 60.0, Calcium Level 8.5L CBC/BMP Laboratory Tests 06/02/20 06:37 FSBS Laboratory Tests Test 06/01/20 11:35 06/01/20 16:49 06/01/20 20:05 Range/Units Bedside Glucose (Misc Panel) 233 278 178 83-110 MG/DL Microbiology Microbiology 06/01/20 Gram Stain - Final, Resulted 06/01/20 Sputum Culture, Resulted Pending 05/31/20 Blood Culture - Preliminary, Resulted No growth after 24 hours . All specim... 05/31/20 Blood Culture - Preliminary, Resulted No Growth after 48 hours. All Specime... Discharge Medications Scheduled Albuterol Sulfate (Albuterol Sulfate) 2.5 Mg/0.5 Ml Vial.neb, 2.5 MG INH BID, (Reported) Ascorbic Acid/Vitamin E/Biotin (Hair Skin Nails-Biotin Gummies) 1 Each Tab.chew, 1 TAB PO DAILY, (Reported) Atorvastatin Calcium (Atorvastatin Calcium) 40 Mg Tablet, 40 MG PO QHS, (Reported) Biotin (Biotin) 1,000 Mcg Tab.chew, 1,000 MCG PO DAILY, (Reported) Brinzolamide/Brimonidine Tart (Simbrinza 1%-0.2% Eye Drops) 1 Stefania Stefania, 1 DROP OU BID, (Reported) Chlorthalidone (Chlorthalidone) 25 Mg Tablet, 12.5 MG PO DAILY, (Reported) Cholecalciferol (Vitamin D3) (D3-2000) 50 Mcg Capsule, 50 MCG PO DAILY, (Reported) Cyanocobalamin (Vitamin B-12) (Vitamin B-12) 1,000 Mcg Capsule, 1,000 MCG PO DAILY, (Reported) Diltiazem HCl (Dilt-Xr) 180 Mg Cap.er.deg, 180 MG PO DAILY, (Reported) Fluticasone/Vilanterol (Breo Ellipta 200-25 Mcg INH) 1 Each Blst.w.dev, 1 PUFF INH DAILY, (Reported) Gabapentin (Neurontin) 100 Mg Capsule, 100 MG PO BID, (Reported) Losartan Potassium (Losartan Potassium) 50 Mg Tablet, 50 MG PO DAILY, (Reported) Metformin HCl (Metformin HCl) 1,000 Mg Tab, 1,000 MG PO BID, (Reported) Multivitamins (Thera M Plus Tablet) 1 Tab Tab, 1 TAB PO DAILY, (Reported) Potassium Chloride (Klor-Con M10) 10 Meq Tabcr, 10 MEQ PO DAILY, (Reported) Prednisone (Prednisone) 10 Mg Tablet, 10 MG PO TAPER Take 4 tabs daily x 3 days, then 3 tabs daily x 3 days, then 2 tabs daily x 3 days, then 1 tab daily x 3 days and stop Prednisone (Prednisone) 10 Mg Tablet, 60 MG PO BID Rivaroxaban (Xarelto) 20 Mg Tab, 20 MG PO QPM, (Reported) Umeclidinium [place] (Incruse Ellipta) 62.5 Mcg Blst.w.dev, 1 PUFF INH DAILY, (Reported) Scheduled PRN Albuterol Sulfate (Proair Hfa) 8.5 Gm Hfa.aer.ad, 2 PUFF INH Q6H PRN for SOB/WHEEZING, (Reported) Docusate Sodium (Stool Softener) 100 Mg Capsule, 100 MG PO BID PRN for CONSTIPATION, (Reported) Ipratropium/Albuterol Sulfate (Combivent Respimat 20-100 Mcg) 4 Gm Mist.inhal, 1 PUFF INH Q6HP PRN for SHORTNESS OF BREATH, (Reported) Nitroglycerin (Nitroglycerin) 0.4 Mg Sub, 0.4 MG SL NITRO PRN for ANGINA, (Reported) Allergies Coded Allergies: No Known Allergies (Unverified , 07/11/19) NI HARDWICK MD Jun 02, 2020 08:34
[2020-06-02] MEDS: CYANOCOBALAMIN 500 MCG TAB PO SCH (08:47)
[2020-06-02] MEDS: CHLORTHALIDONE 25 MG TAB PO SCH (08:47)
[2020-06-02 08:48] VITALS: BP 121/66
[2020-06-02] MEDS: diltiaZEM **CD** 180 MG CAP PO SCH (08:48)
[2020-06-02] MEDS: GABAPENTIN 100 MG CAP PO SCH (08:48)
[2020-06-02] MEDS: LOSARTAN 50MG TABLET PO SCH (08:48)
[2020-06-02] MEDS: ASCORBIC ACID 250 MG TAB PO SCH (08:49)
[2020-06-02] MEDS: VITAMIN D 1,000 INTERNATIONAL UNITS TABLET PO SCH (08:49)
[2020-06-02] MEDS: MULTIVITAMINS/MINERALS THERAP 1 TAB PO SCH (08:49)
[2020-06-02] MEDS: POTASSIUM CHLORIDE 10 MEQ SR TABLET PO SCH (08:50)
[2020-06-02] MEDS: HumaLOG INSULIN (NovoLOG) PER UNIT SC SCH ×2 (08:50→12:28)
[2020-06-02] MEDS: BRIMONIDINE 0.1% OPHTH SOLN 5 ML OU SCH (08:51)
[2020-06-02] MEDS: TIOTROPIUM INHALER/CAPSULE (SPIRIVA) INH SCH (08:53)
[2020-06-02] MEDS: ADVAIR HFA 230/21MCG INHALER INH SCH (08:53)
[2020-06-02] MEDS ORDERED: predniSONE 20 MG TAB PO SCH (09:00)
[2020-06-02] MEDS ORDERED: guaiFENesin ER 600 MG TAB PO SCH (09:00)
[2020-06-02 14:00] VITALS: BP 115/66
[2020-06-05 14:13] LABS: BODY FLUID CULTURE Not indicated. (.); LEGIONELLA ANTIGEN URINE Negative (Negative); ORGANISM ID Not indicated. (.); SPECIMEN SOURCE Urine (.); URINE STREP PNEUMONIAE ANTIGEN Negative (Negative)
== END 2020-06-02 15:45 | disposition home or self-care (01) | DRG 191 ==
LOC: M ED 07:39 → EDBD 07:39 → M ED INP 12:38 → ENRESERV 13:55 → M MS5PR 16:30
PROVIDERS: ADMIT Internal Medicine; ATTEND General Practice
DX: J44.1 Chronic obstructive pulmonary disease with (acute) exacerbation (principal); J96.11 Chronic respiratory failure with hypoxia; C34.11 Malignant neoplasm of upper lobe, right bronchus or lung; I48.20 Chronic atrial fibrillation, unspecified; E11.40 Type 2 diabetes mellitus with diabetic neuropathy, unspecified; G47.30 Sleep apnea, unspecified; I27.29 Other secondary pulmonary hypertension; L71.9 Rosacea, unspecified; E78.5 Hyperlipidemia, unspecified; I10 Essential (primary) hypertension; I25.10 Atherosclerotic heart disease of native coronary artery without angina pectoris; Z66 Do not resuscitate; E53.8 Deficiency of other specified B group vitamins; I73.00 Raynaud's syndrome without gangrene; H40.9 Unspecified glaucoma; Z92.3 Personal history of irradiation; Z98.49 Cataract extraction status, unspecified eye; Z99.81 Dependence on supplemental oxygen; Z87.891 Personal history of nicotine dependence; Z20.828 Contact with and (suspected) exposure to other viral communicable diseases; Z79.01 Long term (current) use of anticoagulants; Z79.84 Long term (current) use of oral hypoglycemic drugs; Z79.899 Other long term (current) drug therapy; Z20.822 Contact with and (suspected) exposure to COVID-19

== ENCOUNTER → 2020-10-03 | Outpatient (CLI) | payer MEDICARE ==
[~2020-10-03] MED LIST changes: +ALB2.5NEB INH; +CHLO25TA PO; +GABA-283 PO; -GABA-845 PO; +VITA200012 PO
--- NOTE | 2020-10-03 17:17 | REP ---
INDICATION: PVD COMPARISON: None. TECHNIQUE: Real time garcia scale and Duplex Doppler evaluation of the bilateral lower extremity arterial vasculature using linear high frequency transducer. FINDINGS: Garcia scale and duplex doppler images demonstrate severe diffuse plaquing bilaterally. Shadowing from calcific plaque limits the exam. There appears to be approximately 7-1 stenosis of the mid right superficial femoral artery. No definite flow is seen in the proximal right posterior tibial artery. Diffuse monophasic waveforms are present throughout the right lower extremity. The proximal left superficial femoral artery is occluded with reconstitution distally via a collateral vessel. There appears to be approximately 5-1 stenosis of the proximal left anterior tibial artery. Biphasic waveform is noted in the left common femoral artery with monophasic waveforms distal to that. Peak systolic velocities (cm/sec) Common femoral artery: Right 121; Left 110 Profunda femoris: Right 172; Left 97 SFA (proximal): Right 91; Left occluded SFA (mid): Right 256; Left occluded SFA (distal): Right 42; Left occluded/52 Popliteal artery: Right 79; Left 23 NEGIN (prox.): Right 38; Left 130 Tibioperoneal trunk: Right 23; Left 55 CUFF SLITTER (prox.): Right possibly occluded; Left 27 CUFF SLITTER (distal): Right 19; Left 37 NEGIN (distal): Right 39; Left 32 IMPRESSION: Diffuse severe plaquing bilaterally. Proximally 7-1 stenosis mid right SFA. Possible occlusion proximal right CUFF SLITTER. Occlusion left SFA. Reconstitution distally. Approximately 5-1 stenosis proximal left NEGIN. <Electronically signed by Cooper Garcia > 10/03/20 [id number]
== END ==
LOC: M RAD 15:20
PROVIDERS: ATTEND Podiatrist Foot & Ankle Surgery
DX: I70.203 Unspecified atherosclerosis of native arteries of extremities, bilateral legs (principal); I65.22 Occlusion and stenosis of left carotid artery

== ENCOUNTER → 2020-10-18 | Outpatient (POV) | payer MEDICARE ==
[~2020-10-18] VITALS: Ht 152.4 cm; Wt 63.2 kg
[2020-10-18 08:41] VITALS: BP 152/67
--- NOTE | 2020-10-18 14:28 | IRCOV ---
[facility] IR Consult Office Visit IR Consult Office Visit DATE: October 18, 2020 REASON FOR CONSULTATION/CHIEF COMPLAINT: Nonhealing right lower extremity ulcers. HISTORY OF PRESENT ILLNESS: 80-year-old female with extensive cardiac history, atrial fibrillation, diabetes, hypertension, COPD, on home oxygen 17/12, ex- smoker, presents with nonhealing right lower extremity ulcer. Patient states she initially had a right heel ulcer, several months ago which healed after 2 months. She then developed an ulcer on the dorsum of her right foot which is also exquisitely tender and nonhealing. She's been suffering with this ulcer for greater than 4 months now. She is under the care of Dr. Bailey. Patient describes rest pain in bilateral lower extremities, right greater than left, with leg elevation at night. She describes she has to sit up and hang her legs over the side of the bed to relieve the pain. Patient does complain of pain in the legs upon walking around the house. Patient denies any prior leg angiography, intervention and/or bypass. Patient denies any prior cold leg, gangrene, amputation, arterial or deep vein thrombosis. Patient denies chest pain, shortness of breath, orthopnea or paroxysmal nocturnal dyspnea. She is unable to lay flat. ALLERGIES: Please see below. HOME MEDICATIONS: Please see below. PAST MEDICAL HISTORY: [place] 20 years ago Diabetes TIA: patient states this was not diagnosed but she does think she had a mini stroke after which her memory rapidly declined. CHF Atrial fibrillation Hypertension Hyperlipidemia COPD on home oxygen 17/12. Lung cancer Pulmonary hypertension Coronary artery diseasecatheterization in September 2016. Patient denies any stents. Raynaud syndrome Sleep apnea Rosacea Diverticulitis Glaucoma PAST SURGICAL HISTORY: Hysterectomy Gallbladder surgery Breast biopsy Cataract surgery D&C Foot surgery FAMILY HISTORY: Noncontributory. SOCIAL HISTORY: Ex-smoker; patient quit 15 years ago. She used to smoke 1-1/2 packs per day for decades before that. Denies alcohol or drugs. REVIEW OF SYSTEMS: Otherwise negative. PHYSICAL EXAMINATION: VITAL SIGNS: Please see below. GENERAL APPEARANCE: Appears well. Comfortable at rest. On oxygen. Able to speak in sentences. HEENT: No scleral icterus. RESPIRATORY: Normal breathing at rest. CARDIOVASCULAR: Normal rate. Systolic murmur. ABDOMEN: Non-distended. Soft nontender. EXTREMITIES: Right lower extremity: Pitting edema to above the knee. Right foot ulcer dorsum of foot. Color normal. temperature normal. Pulses femoral 2+ popliteal 1+ DP/PT nonpalpable. Motor 5 out of 5. Sensation intact. Left lower extremity: Pitting edema to above the knee. Color normal. Temperature normal. Pulses femoral 2+ popliteal 1+ DP/PT nonpalpable. Motor 5 out of 5. Sensation intact. NEUROLOGICAL: Alert and oriented. PSYCHIATRIC: Appropriate to circumstance. LABORATORY DATA: 07/29/2020 hemoglobin 11.2 hematocrit 36.7 WBC 7.4 platelets 281 sodium 139 potassium 3.4 BUN 10 creatinine 0.43 GFR greater than 60 02/19/2020 hemoglobin A1c 6.3 02/19/2020 LDL 39 Imaging: I personally reviewed the bilateral lower extremity arterial ultrasound performed 10/03/2020. There is multifocal right SFA stenosis with poor flow beyond. There is atherosclerotic disease in the left SFA with a segment of occlusion. ABIs not obtained due to calcified noncompressible vessels. ASSESSMENT/PLAN: 80-year-old female with extensive cardiac history, diabetes, hypertension, severe COPD dependent on 24 hour oxygen, presents with right lower extremity nonhealing ulcer and bilateral lower extremity rest pain. I agree patient has indication for angiography and/or intervention in the same setting if possible. We discussed the risks and benefits of angiography and intervention and patient is agreeable to proceed. We will schedule the patient for right lower extremity angiography and intervention. Patient will have to stop Xarelto for at least 48 hours prior to the procedure to reduce the risk of bleeding. This does put the patient at risk of stroke. Patient was advised to discuss this with her demonstrator electric gas appliances and should only hold the drug under her demonstrator electric gas appliances's supervision and agreement. I spent 45 minutes reviewing patient's records, imaging and in consultation with the patient. Thank you for this referral. Cc Dr. Bailey Cc Dr. Walter Cochran demonstrator electric [employer]. Allergies Coded Allergies: No Known Allergies (Unverified , 07/11/19) Home Medications Scheduled Albuterol Sulfate (Albuterol Sulfate), 2.5 MG INH BID, (Reported) Ascorbic Acid/Vitamin E/Biotin (Hair Skin Nails-Biotin Gummies), 1 TAB PO DAILY, (Reported) Atorvastatin Calcium (Atorvastatin Calcium), 40 MG PO QHS, (Reported) Biotin (Biotin), 1,000 MCG PO DAILY, (Reported) Brinzolamide/Brimonidine Tart (Simbrinza 1%-0.2% Eye Drops), 1 DROP OU BID, (Reported) Chlorthalidone (Chlorthalidone), 12.5 MG PO DAILY, (Reported) Cholecalciferol (Vitamin D3) (D3-2000), 50 MCG PO DAILY, (Reported) Cyanocobalamin (Vitamin B-12) (Vitamin B-12), 1,000 MCG PO DAILY, (Reported) Diltiazem HCl (Dilt-Xr), 180 MG PO DAILY, (Reported) Fluticasone/Vilanterol (Breo Ellipta 200-25 Mcg INH), 1 PUFF INH DAILY, (Reported) Gabapentin (Neurontin), 100 MG PO BID, (Reported) Losartan Potassium (Losartan Potassium), 50 MG PO DAILY, (Reported) Metformin HCl (Metformin HCl), 1,000 MG PO BID, (Reported) Multivitamins (Thera M Plus Tablet), 1 TAB PO DAILY, (Reported) Potassium Chloride (Klor-Con M10), 10 MEQ PO DAILY, (Reported) Prednisone (Prednisone), 10 MG PO TAPER Prednisone (Prednisone), 60 MG PO BID Rivaroxaban (Xarelto), 20 MG PO QPM, (Reported) Umeclidinium [place] (Incruse Ellipta), 1 PUFF INH DAILY, (Reported) Scheduled PRN Albuterol Sulfate (Proair Hfa), 2 PUFF INH Q6H PRN for SOB/WHEEZING, (Reported) Docusate Sodium (Stool Softener), 100 MG PO BID PRN for CONSTIPATION, (Reported) Ipratropium/Albuterol Sulfate (Combivent Respimat 20-100 Mcg), 1 PUFF INH Q6HP PRN for SHORTNESS OF BREATH, (Reported) Nitroglycerin (Nitroglycerin), 0.4 MG SL NITRO PRN for ANGINA, (Reported) VS, I&O, 24H, Fishbone Vital Signs/I&O Vital Signs Date Time Temp Pulse Resp B/P (MAP) Pulse Ox O2 Delivery O2 Flow Rate FiO2 10/18/20 08:41 97.9 80 20 152/67 (95) 91 Room Air 91.0 VAL COURTNEY MD October 18, 2020 14:28
== END ==
LOC: M IRPOV 08:24
PROVIDERS: ATTEND Radiology Diagnostic Radiology
DX: L97.519 Non-pressure chronic ulcer of other part of right foot with unspecified severity (principal); E11.9 Type 2 diabetes mellitus without complications; E78.5 Hyperlipidemia, unspecified; G47.30 Sleep apnea, unspecified; I10 Essential (primary) hypertension; I25.10 Atherosclerotic heart disease of native coronary artery without angina pectoris; I25.2 Old myocardial infarction; I27.20 Pulmonary hypertension, unspecified; I48.91 Unspecified atrial fibrillation; I50.9 Heart failure, unspecified; J44.9 Chronic obstructive pulmonary disease, unspecified; Z79.899 Other long term (current) drug therapy; Z85.118 Personal history of other malignant neoplasm of bronchus and lung; Z86.73 Personal history of transient ischemic attack (TIA), and cerebral infarction without residual deficits; Z87.891 Personal history of nicotine dependence; Z90.710 Acquired absence of both cervix and uterus; Z96.1 Presence of intraocular lens

== ENCOUNTER 2020-10-26 12:20 | Inpatient (IN) | payer MEDICARE ==
[~2020-10-26] VITALS: Ht 152.4 cm; Wt 63.3 kg
--- NOTE | 2020-10-26 12:57 | REP ---
INDICATION: Dyspnea/Cough COMPARISON: 05/31/2020 TECHNIQUE: PA and lateral. FINDINGS: As stated on prior examinations, there is an ovoid area of opacity in the right mid lung zone with spiculated margins which appears more prominent on current examination and is concerning for neoplasm. Subtle bibasilar opacities/atelectasis cannot be excluded as well. Blunting to the costophrenic angles suggests small pleural effusions/reactions (left greater than right). No pneumothorax. Cardiac silhouette is normal. Skeletal structures demonstrate degenerative changes. IMPRESSION: Increasing prominence to the ovoid spiculated opacity in the right midlung zone again suspicious for neoplasm. Subtle bibasilar opacities and possible small pleural reactions (left greater than right). <Electronically signed by Mathew Sparks > 10/26/20 [id number]
[2020-10-26 12:59] LABS: BASO # 0.1 10^3/uL (0.0-0.2); BASO % 0.5 % (0.0-1.0); EOS # 0.1 10^3/uL (0.0-0.5); EOS % 0.5 % (0.0-3.0); HEMATOCRIT 38.4 % (36.0-47.0); HEMOGLOBIN 12.1 g/dl (12.0-15.5); LYMPH # 0.6 10^3/uL (1.5-5.0); LYMPH % 3.6 % (24.0-44.0); MEAN CORPUSCULAR HEMOGLOBIN 31.7 pg (27.0-33.0); MEAN CORPUSCULAR HGB CONC 31.5 g/dl (32.0-36.5); MEAN CORPUSCULAR VOLUME 100.5 fl (80.0-96.0); MONO % 5.6 % (2.0-8.0); NEUTROPHILS % 89.2 % (36.0-66.0); PLATELET COUNT, AUTOMATED 212 10^3/uL (150-450); RED BLOOD COUNT 3.82 10^6/uL (4.00-5.40); WHITE BLOOD COUNT 16.8 10^3/uL (4.0-10.0)
[2020-10-26] MEDS ORDERED: NITROGLYCERIN 2% OINT 1 GM *U/D* PKT TOP ONE (13:00)
[2020-10-26] MEDS ORDERED: FUROSEMIDE 20MG/2ML VIAL (J1940) IV ONE ×2 (13:00→22:00)
[2020-10-26 13:28] LABS: BLOOD UREA NITROGEN 9 MG/DL (7-18); CARBON DIOXIDE LEVEL 31 MEQ/L (21-32); CHLORIDE LEVEL 101 MEQ/L (98-107); CREATININE FOR GFR 0.35 MG/DL (0.55-1.30); GLOMERULAR FILTRATION RATE > 60.0 (>39); GLUCOSE, FASTING 150 MG/DL (70-100); POTASSIUM SERUM 3.9 MEQ/L (3.5-5.1); SODIUM LEVEL 139 MEQ/L (136-145)
[2020-10-26 15:23] LABS: RSV AMPLIFICATION NEGATIVE (NEGATIVE)
[2020-10-26] MEDS ORDERED: cefTRIAXone SOD 1 GM in D5W MINI-BAG PLUS 50 ML IV ONE (15:35)
[2020-10-26] MEDS ORDERED: ACETAMINOPHEN TAB 650MG DOSE (2X325MG) PO PRN (17:05)
[2020-10-26 17:38] LABS: NT-PRO BNP 380 PG/ML (<450)
[2020-10-26] MEDS ORDERED: DOCUSATE SODIUM 100MG CAPSULE PO PRN (17:40)
[2020-10-26] MEDS ORDERED: ALBUTEROL 90 MCG/ACT 8GM HFA INHALER INH PRN (17:40)
[2020-10-26] MEDS ORDERED: NITROGLYCERIN 0.4 MG SUBL TABLET SL PRN (17:40)
--- NOTE | 2020-10-26 17:42 | HPEPDOC ---
General Date of Admission Oct 26, 2020 at 17:01 Date of Service: Oct 26, 2020 Chief Complaint The patient is a 80-year-old female admitted with a reason for visit of CHF. Source: Patient Exam Limitations: No limitations History of Present Illness 80-year-old W with a history of non-small cell lung cancer treated only with radiation in 2017 with nodules being followed by oncology in [place], COPD, chronic hypoxic respiratory failure on baseline 2L NC, diabetes with neuropathy, atrial fibrillation on rivaroxaban, sleep apnea, pulmonary hypertension, hyperlipidemia, hypertension, coronary artery disease presented to hospital with increased shortness of breath. Patient stated that since yesterday she's been having increased shortness of breath on exertion. Patient reports that she woke she has to stop to catch her breath. Also she reported orthopnea and increased legs swelling. Also patient reported increased frequency of urination In ER patient was found to have leukocytosis of 16.8. X-ray showed Increasing prominence to the ovoid spiculated opacity in the right midlung zone again suspicious for neoplasm. Subtle bibasilar opacities and possible small pleural reactions (left greater than right). Home Medications Scheduled Albuterol Sulfate (Albuterol Sulfate) 2.5 Mg/0.5 Ml Vial.neb, 2.5 MG INH BID, (Reported) Ascorbic Acid/Vitamin E/Biotin (Hair Skin Nails-Biotin Gummies) 1 Each Tab.chew, 1 TAB PO DAILY, (Reported) Atorvastatin Calcium (Atorvastatin Calcium) 40 Mg Tablet, 40 MG PO QHS, (Reported) Biotin (Biotin) 1,000 Mcg Tab.chew, 1,000 MCG PO DAILY, (Reported) Brinzolamide/Brimonidine Tart (Simbrinza 1%-0.2% Eye Drops) 1 Stefania Stefania, 1 DROP OU BID, (Reported) Chlorthalidone (Chlorthalidone) 25 Mg Tablet, 12.5 MG PO DAILY, (Reported) Cholecalciferol (Vitamin D3) (D3-2000) 50 Mcg Capsule, 50 MCG PO DAILY, (Reported) Cyanocobalamin (Vitamin B-12) (Vitamin B-12) 1,000 Mcg Capsule, 1,000 MCG PO DAILY, (Reported) Diltiazem HCl (Dilt-Xr) 180 Mg Cap.er.deg, 180 MG PO DAILY, (Reported) Fluticasone/Vilanterol (Breo Ellipta 200-25 Mcg INH) 1 Each Blst.w.dev, 1 PUFF INH DAILY, (Reported) Gabapentin (Neurontin) 100 Mg Capsule, 100 MG PO BID, (Reported) Losartan Potassium (Losartan Potassium) 50 Mg Tablet, 50 MG PO QHS, (Reported) Metformin HCl (Metformin HCl) 1,000 Mg Tab, 1,000 MG PO BID, (Reported) Multivitamins (Thera M Plus Tablet) 1 Tab Tab, 1 TAB PO DAILY, (Reported) Potassium Chloride (Klor-Con M10) 10 Meq Tabcr, 10 MEQ PO DAILY, (Reported) Rivaroxaban (Xarelto) 20 Mg Tab, 20 MG PO QPM, (Reported) Umeclidinium [place] (Incruse Ellipta) 62.5 Mcg Blst.w.dev, 1 PUFF INH DAILY, (Reported) Scheduled PRN Albuterol Sulfate (Proair Hfa) 8.5 Gm Hfa.aer.ad, 2 PUFF INH Q6H PRN for SOB/WHEEZING, (Reported) Docusate Sodium (Stool Softener) 100 Mg Capsule, 100 MG PO BID PRN for CONSTIPATION, (Reported) Nitroglycerin (Nitroglycerin) 0.4 Mg Sub, 0.4 MG SL NITRO PRN for ANGINA, (Reported) Allergies Coded Allergies: No Known Allergies (Unverified , 07/11/19) Past Medical History Medical History Persistent Right Upper Lobe Spiculated Mass ATRIAL FIBRILLATION TYPE II DIABETES COMPLICATED BY DIABETIC NEUROPATHY POORLY DIFFERENTIATED NON-SMALL CELL LUNG CANCER with extensive necrosis, 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 COPD WITH CHRONIC HYPOXIC RESP FAILURE WITH PULMONARY HYPERTENSION CORONARY ARTERY DISEASE (CATH SEPTEMBER 2016) RAYNAUDS SYNDROME SLEEP APNEA WITH PULMONARY HYPERTENSION HYPERLIPIDEMIA HTN ROSACEA DIVERTICULOSIS GLAUCOMA HEMORRHOIDS ADJUSTMENT DISORDER Vit B12 def Surgical History HYSTERECTOMY GALLBLADDER BREAST BIOPSY CATARACT SURGERY/AND LASER SURGERY D&C A&P REPAIR FOOT SURGERY Family History FATHER: 57 YRS, ANEURYSM MOTHER: 67 YRS, LUNG CANCER Social History * Smoker: former Smoker Alcohol: Denies Drugs: denies A-FIB/CHADSVASC A-FIB History Current/History of A-Fib/PAF?: Yes Current PO Anticoag Therapy: Yes Review of Systems Constitutional: Reports: Fatigue; Denies: Chills, Fever Eyes: Denies: Pain ENT: Denies: Head Aches Skin: Denies: Rash, Lesions Pulmonary: Reports: Dyspnea Cardiovascular: Reports: Orthopnea, Edema; Denies: Chest Pain, Palpitations Gastrointestinal: Denies: Nausea, Vomiting Genitourinary: Reports: Dysuria, Frequency Hematologic: Denies: Bruising Endocrine: Denies: Polydipsia, Polyphagia Musculoskeletal: Denies: Neck Pain, Back Pain Neurological: Denies: Weakness Psych: Reports: Mood Normal Physical Examination General Exam: Positive: Alert, Cooperative Eye Exam: Positive: PERRLA ENT Exam: Positive: Atraumatic Neck Exam: Positive: Supple, JVD Chest Exam: Positive: Clear to auscultation Heart Exam: Positive: Irregular Rhythm Telemetry: Positive: Atrial fibrillation Abdomen Exam: Positive: Normal bowel sounds Extremity Exam: Positive: Clubbing, Swelling; Negative: Cyanosis Skin Exam: Positive: Nl turgor and temperature Neuro Exam: Positive: Cranial Nerves 3-12 NL Psych Exam: Positive: Mental status NL Vital Signs Vital Signs Date Time Temp Pulse Resp B/P (MAP) Pulse Ox O2 Delivery O2 Flow Rate FiO2 10/26/20 14:15 161/80 10/26/20 12:37 99.6 93 18 93 Nasal Cannula 4.0 Laboratory Data Labs 24H Laboratory Tests 2 10/26/20 12:42: Immature Granulocyte % (Auto) 0.6, Neutrophils (%) (Auto) 89.2H, Lymphocytes (%) (Auto) 3.6L, Monocytes (%) (Auto) 5.6, Eosinophils (%) (Auto) 0.5, Basophils (%) (Auto) 0.5, Neutrophils # (Auto) 15.0H, Lymphocytes # (Auto) 0.6L, Monocytes # (Auto) 1.0H, Eosinophils # (Auto) 0.1, Basophils # (Auto) 0.1, Nucleated Red Blood Cells % (auto) 0.0, Anion Gap 7L, Glomerular Filtration Rate > 60.0, Calcium Level 9.0 10/26/20 14:35: Coronavirus (COVID-19)(PCR) NEGATIVE, Influenza Type A (RT-PCR) NEGATIVE, Influenza Type B (RT-PCR) NEGATIVE, Respiratory Syncytial Virus (PCR) NEGATIVE 10/26/20 14:42: Urine Color YELLOW, Urine Appearance CLEAR, Urine pH 6.0, Urine Specific [place] 1.011, Urine Protein NEGATIVE, Urine Glucose (UA) NEGATIVE, Urine Ketones 1+H, Urine Blood NEGATIVE, Urine Nitrite NEGATIVE, Urine Bilirubin NEGATIVE, Urine Urobilinogen 0.2, Urine Leukocyte Esterase 1+H, Urine WBC (Auto) 4H, Urine RBC (Auto) 1, Urine Hyaline Casts (Auto) 0, Urine Bacteria (Auto) 1+H, Urine Squa mous Epithelial Cells 0, Urine Sperm (Auto) CBC/BMP Laboratory Tests 10/26/20 12:42 Microbiology Microbiology 10/26/20 Urine Culture, Received Pending 10/26/20 Blood Culture, Received Pending Assessment/Plan 80-year-old W with a history of non-small cell lung cancer treated only with radiation in 2017 with nodules being followed by oncology in [place], COPD, chronic hypoxic respiratory failure on baseline 2L NC, diabetes with neuropathy, atrial fibrillation on rivaroxaban, sleep apnea, pulmonary hypertension, hy perlipidemia, hypertension, coronary artery disease presented to hospital with increased shortness of breath. Patient stated that since yesterday she's been having increased shortness of breath on exertion. Patient reports that she woke she has to stop to catch her breath. Also she reported orthopnea and increased legs swelling. Also patient reported increased frequency of urination In ER patient was found to have leukocytosis of 16.8. X-ray showed Increasing prominence to the ovoid spiculated opacity in the right midlung zone again suspicious for neoplasm. Subtle bibasilar opacities and possible small pleural reactions (left greater than right). Problems (1) Acute and chronic respiratory failure Status: Acute Problem Text: Mostly secondary to acute CHF exacerbation Oxygen requirements increased to 3 L from baseline 2 L Patient does not have wheezes, lungs sounds clear, unlikely COPD exacerbation (2) CHF (congestive heart failure) Status: Acute Problem Text: Acute diastolic CHF exacerbation Patient has leg swelling, orthopnea, plus JVD We'll check BNP Echo Cardiac diet, I's and O's (3) Chronic atrial fibrillation Status: Chronic Problem Text: Heart rate is under control Continue with Xarelto (4) Mass of right lung Status: Chronic Problem Text: Follow-up with oncologist in the outpatient settings (5) COPD (chronic obstructive pulmonary disease) Status: Chronic Problem Text: Not in acute exacerbation Continue inhalers (6) UTI (urinary tract infection) Status: Acute Problem Text: Patient reported increased frequency in urination Patient has positive UA for leukocytes esterase and for leukocytes Nitrofurantoin by mouth (7) Atrial fibrillation (8) Diabetes mellitus Status: Chronic Problem Text: Diabetes diet Insulin sliding scale Plan / VTE VTE Prophylaxis Ordered?: Yes CARMEN MCCARTHY DO Oct 26, 2020 17:41
[2020-10-26] MEDS ORDERED: GLUCOSE 4GM CHEW TABLET PO PRN (17:45)
[2020-10-26] MEDS ORDERED: DEXTROSE 50% 50 ML SYRINGE IV PRN (17:45)
[2020-10-26] MEDS ORDERED: GLUCAGON INJ 1MG VIAL SC PRN (17:45)
--- NOTE | 2020-10-26 20:55 | ECGEPIP ---
[facility] - ED Test Date: 2020-10-26 Pat Name: BARRY JACOBO Department: Room: - Gender: Female [employer] Coach: LR : 1940 Requested By: Teresa Cota Order Number: [id number] Reading MD: Teresa Cota Measurements Intervals [place] Rate: 93 P: [place]: QRS: 106 QRSD: 76 T: 261 QT: 280 QTc: 348 Interpretive Statements Atrial fibrillation Rightward axis Low voltage QRS Cannot rule out Anteroseptal infarct , age undetermined similar 05/31/20 Electronically Signed on 10-26-2020 20:54:47 EDT by Teresa Cota
[2020-10-26] MEDS: ALBUTEROL SULFATE 2.5 MG/0.5 ML INH NEB SOLN INH SCH (21:30)
[2020-10-26 21:31] VITALS: BP 118/58
[2020-10-26] MEDS: LOSARTAN 50MG TABLET PO SCH (21:31)
[2020-10-26] MEDS: ATORVASTATIN 20 MG TAB PO SCH (21:31)
[2020-10-26] MEDS: HumaLOG INSULIN (NovoLOG) PER UNIT SC SCH (21:32)
[2020-10-26] MEDS: GABAPENTIN 100 MG CAP PO SCH (21:32)
[2020-10-26] MEDS: RIVAROXABAN 20 MG TAB (XARELTO) PO SCH (21:32)
[2020-10-26 22:08] LABS: VENOUS BASE EXCESS 1.6 (-2.0-2.0); VENOUS HCO3 27.6 MEQ/L (23.0-27.0); VENOUS O2 SATURATION 72.1 % (60.0-80.0); VENOUS PARTIAL PRESSURE CO2 49.1 mmHg (38.0-50.0); VENOUS PARTIAL PRESSURE O2 40.4 mmHg (30.0-50.0); VENOUS PH 7.368 UNITS (7.330-7.430); VENOUS STANDARD HCO3 25.4 MEQ/L; VENOUS TOTAL CO2 29.1 MEQ/L (24.0-28.0)
[2020-10-26 23:10] LABS: BLOOD UREA NITROGEN 19 MG/DL (7-18); CALCIUM LEVEL 8.6 MG/DL (8.8-10.2); CARBON DIOXIDE LEVEL 33 MEQ/L (21-32); CHLORIDE LEVEL 100 MEQ/L (98-107); GLOMERULAR FILTRATION RATE > 60.0 (>39); GLUCOSE, FASTING 324 MG/DL (70-100); POTASSIUM SERUM 3.6 MEQ/L (3.5-5.1); SODIUM LEVEL 139 MEQ/L (136-145)
[2020-10-27 06:26] VITALS: BP 116/68
[2020-10-27 06:42] LABS: HEMATOCRIT 35.7 % (36.0-47.0); HEMOGLOBIN 11.5 g/dl (12.0-15.5); MEAN CORPUSCULAR HEMOGLOBIN 31.6 pg (27.0-33.0); MEAN CORPUSCULAR HGB CONC 32.2 g/dl (32.0-36.5); MEAN CORPUSCULAR VOLUME 98.1 fl (80.0-96.0); PLATELET COUNT, AUTOMATED 188 10^3/uL (150-450); RED BLOOD COUNT 3.64 10^6/uL (4.00-5.40); WHITE BLOOD COUNT 8.3 10^3/uL (4.0-10.0)
[2020-10-27 07:10] LABS: ALBUMIN 3.2 GM/DL (3.2-5.2); ALT/SGPT 21 U/L (12-78); BILIRUBIN,TOTAL 0.5 MG/DL (0.2-1.0); BLOOD UREA NITROGEN 20 MG/DL (7-18); CARBON DIOXIDE LEVEL 31 MEQ/L (21-32); CHLORIDE LEVEL 102 MEQ/L (98-107); CREATININE FOR GFR 0.47 MG/DL (0.55-1.30); GLOMERULAR FILTRATION RATE > 60.0 (>39); GLUCOSE, FASTING 196 MG/DL (70-100); MAGNESIUM LEVEL 1.5 MG/DL (1.8-2.4); POTASSIUM SERUM 3.8 MEQ/L (3.5-5.1); SODIUM LEVEL 139 MEQ/L (136-145); TOTAL PROTEIN 6.7 GM/DL (6.4-8.2)
[2020-10-27] MEDS: ALBUTEROL SULFATE 2.5 MG/0.5 ML INH NEB SOLN INH SCH ×2 (07:28→20:46)
[2020-10-27] MEDS ORDERED: diltiaZEM **CD** 180 MG CAP PO SCH (09:00)
[2020-10-27] MEDS: HumaLOG INSULIN (NovoLOG) PER UNIT SC SCH ×4 (09:50→20:53)
[2020-10-27] MEDS: POTASSIUM CHLORIDE 10 MEQ SR TABLET PO SCH (09:50)
[2020-10-27] MEDS: CYANOCOBALAMIN 500 MCG TAB PO SCH (09:50)
[2020-10-27] MEDS: GABAPENTIN 100 MG CAP PO SCH ×2 (09:50→20:55)
[2020-10-27] MEDS: FUROSEMIDE 40MG/4ML VIAL (J1940) IV SCH ×3 (09:50→20:55)
[2020-10-27] MEDS: NITROFURANTOIN (MACROBID) 100 MG CAP PO SCH (12:25)
[2020-10-27 14:00] VITALS: BP 133/53
--- NOTE | 2020-10-27 14:34 | IPNPDOC ---
Text Note Date of Service The patient was seen on 10/27/20. NOTE Objective: Patient stated that she feels better, her breathing improved. Patient denied chest pain or palpitations Objective: GENERAL APPEARANCE: NAD HEENT: no scleral icterus, no JVD, EOMI CARDIOVASCULAR: Irregularly irregular LUNGS: Diminished bilaterally ABDOMEN: soft & not tender w palpitation MUSCULOSKELETAL: no cyanosis, +1 swelling of LE bilaterally, dressing covers right foot INTEGUMENT: no generalized pallor NEUROLOGICAL: cranial nerve function from 2-12 intact intact, follows commands, speech not dysarthric Assessment/Plan 80-year-old W with a history of non-small cell lung cancer treated only with radiation in 2017 with nodules being followed by oncology in [place], COPD, chronic hypoxic respiratory failure on baseline 2L NC, diabetes with neuropathy, atrial fibrillation on rivaroxaban, sleep apnea, pulmonary hypertension, hyperlipidemia, hypertension, coronary artery disease presented to hospital with increased shortness of breath. Patient stated that since yesterday she's been having increased shortness of breath on exertion. Patient reports that she woke she has to stop to catch her breath. Also she reported orthopnea and increased legs swelling. Also patient reported increased frequency of urination In ER patient was found to have leukocytosis of 16.8. X-ray showed Increasing prominence to the ovoid spiculated opacity in the right midlung zone again suspicious for neoplasm. Subtle bibasilar opacities and possible small pleural reactions (left greater than right). Problems (1) Acute and chronic respiratory failure Improved Mostly secondary to acute CHF exacerbation Oxygen requirements increased to 3 L from baseline 2 L on the admission Patient does not have wheezes, lungs sounds clear, unlikely COPD exacerbation (2) CHF (congestive heart failure) Acute diastolic CHF exacerbation Patient has leg swelling, orthopnea, plus JVD BNP 380 Echo pending Cardiac diet, I's and O's (3) Chronic atrial fibrillation Heart rate is under control Continue with Xarelto (4) Mass of right lung Follow-up with oncologist in the outpatient settings (5) COPD (chronic obstructive pulmonary disease) Not in acute exacerbation Continue inhalers (6) UTI (urinary tract infection) Patient reported increased frequency in urination Patient has positive UA for leukocytes esterase and for leukocytes Continue Nitrofurantoin by mouth (7) Atrial fibrillation Heart rate is under control Continue oral target anticoagulation (8) Diabetes mellitus Diabetes diet Insulin sliding scale Right foot wound Follow instructions from Dolly Mo, I+O Dolly RINCON, I+O Laboratory Tests 10/26/20 22:35 10/27/20 06:14 Vital Signs Date Time Temp Pulse Resp B/P (MAP) Pulse Ox O2 Delivery O2 Flow Rate FiO2 10/27/20 09:51 80 129/99 10/27/20 08:30 4.0 10/27/20 06:26 97.3 18 94 Nasal Cannula I&O- Last 24 Hours up to 6 AM 10/27/20 05:59 Intake Total 170 ml Balance 170 ml CARMEN MCCARTHY DO Oct 27, 2020 14:34
[2020-10-27] MEDS: RIVAROXABAN 20 MG TAB (XARELTO) PO SCH (16:57)
--- NOTE | 2020-10-27 18:27 | ECHO ---
ECHOCARDIOGRAM DATE OF PROCEDURE: 10/27/2020 Age: 80 Gender: Female Height: 60 inches Weight: 143 pounds Body surface area: 1.62 m2 PATIENT LOCATION: Inpatient, [facility] Room 4231. REFERRING PHYSICIAN: Mahesh Schulz DO INDICATION: Heart failure. MEASUREMENTS: 2D Measurements: RV 4.2 cm LV 4.4 cm Septum 1.1 cm Posterior wall 1.1 cm Aortic Root 3.2 cm Ascending aorta 3.8 cm LA 4.5 cm LVEF 75% Doppler Measurements: AV 1.83 m/s LVOT 0.8 m/s LVOT diameter 2.0 cm MV-E 132 Early mitral deceleration time 174 msec E prime medial 7.4, E prime lateral 9.7 Average E/E prime ratio 15.4/PCWP - 21 mmHg PV 0.85 m/s Pulmonary artery acceleration time 85 msec RVSP 67 mmHg IVC 2.3 cm COMMENTS: Underlying atrial fibrillation with controlled ventricular response. No intraventricular conduction disturbance. Normal left ventricular size with LV wall thickness upper limits of normal and hyperkinetic wall motion. Moderately prominently dilated left atrium, especially visible from the apical projections, with Doppler evidence of elevated mean left atrial pressure. Mildly dilated right ventricle with slight hypokinesis of the right ventricular free wall and Doppler evidence of severe pulmonary hypertension. Moderately dilated right atrium and inferior vena cava with reduced respiratory collapse in keeping with an elevated central venous pressure right heart failure. Normal aortic root diameter with slightly dilated ascending aorta. Asymmetrical aortic valvular sclerosis especially affecting the noncoronary cusp with slightly reduced motion of the noncoronary cusp, but the other two cusps move normally. No significant LV outflow tract obstruction or apparent insufficiency. Moderate mitral annular calcification with normal leaflet excursion and no obvious posterior systolic buckling, but at least moderate eccentrically directed insufficiency. Normal appearing tricuspid valve with moderately severe-severe insufficiency. No apparent intracardiac mass or pericardial effusion. MTDD
[2020-10-27] MEDS ORDERED: FUROSEMIDE 40MG/4ML VIAL (J1940) IV ONE (20:05)
[2020-10-27] MEDS: ADVAIR HFA 230/21MCG INHALER INH SCH (20:46)
[2020-10-27] MEDS: LOSARTAN 50MG TABLET PO SCH (20:55)
[2020-10-27] MEDS: guaiFENesin ER 600 MG TAB PO SCH (20:55)
[2020-10-27] MEDS: ATORVASTATIN 20 MG TAB PO SCH (20:56)
[2020-10-27 22:00] VITALS: BP 126/59
[2020-10-28 06:00] VITALS: BP 109/59
[2020-10-28] MEDS: ALBUTEROL SULFATE 2.5 MG/0.5 ML INH NEB SOLN INH SCH (08:00)
[2020-10-28] MEDS: ADVAIR HFA 230/21MCG INHALER INH SCH (08:07)
[2020-10-28] MEDS: GABAPENTIN 100 MG CAP PO SCH (08:51)
[2020-10-28] MEDS: guaiFENesin ER 600 MG TAB PO SCH (08:51)
[2020-10-28] MEDS: CYANOCOBALAMIN 500 MCG TAB PO SCH (08:51)
[2020-10-28] MEDS: NITROFURANTOIN (MACROBID) 100 MG CAP PO SCH (08:51)
[2020-10-28] MEDS: HumaLOG INSULIN (NovoLOG) PER UNIT SC SCH ×2 (08:51→12:26)
[2020-10-28] MEDS: POTASSIUM CHLORIDE 10 MEQ SR TABLET PO SCH (08:52)
[2020-10-28 08:54] VITALS: BP 116/61
[2020-10-28] MEDS: FUROSEMIDE 40MG/4ML VIAL (J1940) IV SCH (08:56)
[2020-10-28] MEDS ORDERED: CARD120C3 PO (11:09)
[2020-10-28] MEDS ORDERED: TORS10TA3 PO (11:09)
[2020-10-28] MEDS ORDERED: NITR100C2 PO (11:09)
--- NOTE | 2020-10-28 18:47 | DS.PDOC ---
Discharge Summary General Date of Admission Oct 26, 2020 at 17:01 Date of Discharge 10/28/20 Discharge Summary PROCEDURES PERFORMED DURING STAY: [None]. ADMITTING DIAGNOSES: Acute and chronic respiratory failure CHF (congestive heart failure) Chronic atrial fibrillation Mass of right lung COPD (chronic obstructive pulmonary disease) UTI (urinary tract infection) Atrial fibrillation Diabetes mellitus Right foot wound DISCHARGE DIAGNOSES: Acute and chronic respiratory failure CHF (congestive heart failure) Chronic atrial fibrillation Mass of right lung COPD (chronic obstructive pulmonary disease) UTI (urinary tract infection) Atrial fibrillation Diabetes mellitus Right foot wound COMPLICATIONS/CHIEF COMPLAINT: CHF. HISTORY OF PRESENT ILLNESS:80-year-old W with a history of non-small cell lung cancer treated only with radiation in 2017 with nodules being followed by oncology in [place], COPD, chronic hypoxic respiratory failure on baseline 2L NC, diabetes with neuropathy, atrial fibrillation on rivaroxaban, sleep apnea, pulmonary hypertension, hyperlipidemia, hypertension, coronary artery disease presented to hospital with increased shortness of breath. Patient stated that since yesterday she's been having increased shortness of breath on exertion. Patient reports that she woke she has to stop to catch her breath. Also she reported orthopnea and increased legs swelling. Also patient reported increased frequency of urination In ER patient was found to have leukocytosis of 16.8. X-ray showed Increasing prominence to the ovoid spiculated opacity in the right midlung zone again suspicious for neoplasm. Subtle bibasilar opacities and possible small pleural reactions (left greater than right). HOSPITAL COURSE: During the hospital stay the following issues addressed (1) Acute and chronic respiratory failure Improved Mostly secondary to acute CHF exacerbation Oxygen requirements increased to 3 L from baseline 2 L on the admission Patient does not have wheezes, lungs sounds clear, unlikely COPD exacerbation (2) CHF (congestive heart failure) Acute diastolic CHF exacerbation Patient has leg swelling, orthopnea, plus JVD BNP 380 Echo see report below Cardiac diet, I's and O's (3) Chronic atrial fibrillation Heart rate is under control Continue with Xarelto (4) Mass of right lung Follow-up with oncologist in the outpatient settings (5) COPD (chronic obstructive pulmonary disease) Not in acute exacerbation Continue inhalers (6) UTI (urinary tract infection) Patient reported increased frequency in urination Patient has positive UA for leukocytes esterase and for leukocytes Continue Nitrofurantoin by mouth (7) Atrial fibrillation Heart rate is under control Continue oral target anticoagulation (8) Diabetes mellitus Diabetes diet Insulin sliding scale Right foot wound Follow instructions from Dr Burnett DISCHARGE MEDICATIONS: Please see below. ALLERGIES: Please see below. PHYSICAL EXAMINATION ON DISCHARGE: VITAL SIGNS: Please see below. GENERAL APPEARANCE: NAD HEENT: no scleral icterus, no JVD, EOMI CARDIOVASCULAR: Irregularly irregular LUNGS: Diminished bilaterally ABDOMEN: soft & not tender w palpitation MUSCULOSKELETAL: no cyanosis, +1 swelling of LE bilaterally, dressing covers right foot INTEGUMENT: no generalized pallor NEUROLOGICAL: cranial nerve function from 2-12 intact intact, follows commands, speech not dysarthric LABORATORY DATA: Please see below. IMAGING: [facility] NAME: BARRY JACOBO : 1940 MEDICAL REC #: [id number] ROOM: [facility] ACCOUNT: [id number] ORDERING DOCTOR: CARMEN MCCARTHY DO PATIENT STATUS: ADM IN DICTATING DOCTOR: Walter Cochran MD, [facility] REPORT #: [id number] cc: [~ rep ct ivnm] ECHOCARDIOGRAM-DOPPLER REPORT Printed: [~ rep prt dt last] [~ rep prt tm last] Page 3 of [address] [address] ECHOCARDIOGRAM-DOPPLER REPORT ECHOCARDIOGRAM-DOPPLER REPORT Printed: [~ rep prt dt last] [~ rep prt tm last] Page 1 of 3 ECHOCARDIOGRAM DATE OF PROCEDURE: 10/27/2020 Age: 80 Gender: Female Height: 60 inches Weight: 143 pounds Body surface area: 1.62 m2 PATIENT LOCATION: Inpatient, [address] [place] [address] [facility]. REFERRING PHYSICIAN: Carmen Mccarthy DO INDICATION: Heart failure. MEASUREMENTS: 2D Measurements: RV 4.2 cm LV 4.4 cm Septum 1.1 cm Posterior wall 1.1 cm Aortic Root 3.2 cm Ascending aorta 3.8 cm LA 4.5 cm LVEF 75% Doppler Measurements: AV 1.83 m/s LVOT 0.8 m/s LVOT diameter 2.0 cm MV-E 132 Early mitral deceleration time 174 msec E prime medial 7.4, E prime lateral 9.7 Average E/E prime ratio 15.4/PCWP - 21 mmHg PV 0.85 m/s Pulmonary artery acceleration time 85 msec RVSP 67 mmHg IVC 2.3 cm COMMENTS: Underlying atrial fibrillation with controlled ventricular response. No intraventricular conduction disturbance. Normal left ventricular size with LV wall thickness upper limits of normal and hyperkinetic wall motion. Moderately prominently dilated left atrium, especially visible from the apical projections, with Doppler evidence of elevated mean left atrial pressure. Mildly dilated right ventricle with slight hypokinesis of the right ventricular free wall and Doppler evidence of severe pulmonary hypertension. Moderately dilated right atrium and inferior vena cava with reduced respiratory collapse in keeping with an elevated central venous pressure right heart failure. Normal aortic root diameter with slightly dilated ascending aorta. Asymmetrical aortic valvular sclerosis especially affecting the noncoronary cusp with slightly reduced motion of the noncoronary cusp, but the other two cusps move normally. No significant LV outflow tract obstruction or apparent insufficiency. Moderate mitral annular calcification with normal leaflet excursion and no obvious posterior systolic buckling, but at least moderate eccentrically directed insufficiency. Normal appearing tricuspid valve with moderately severe-severe insufficiency. No apparent intracardiac mass or pericardial effusion. DD: Walter Cochran MD, [facility] 10/27/201815 20 DS: JOSE 10/27/202124 <Electronically signed by Walter Cochran > 10/27/202124 DS2: [~ rep ct labl] PROGNOSIS: Fair ACTIVITY: [As tolerated]. DIET: Cardiac DISPOSITION: 01 Home, Self-Care. ITEMS TO FOLLOWUP ON ON OUTPATIENT: Follow-up with PCP in 5 days DISCHARGE CONDITION: [Stable]. TIME SPENT ON DISCHARGE:40minutes. Vital Signs/I&Os Vital Signs Date Time Temp Pulse Resp B/P (MAP) Pulse Ox O2 Delivery O2 Flow Rate FiO2 10/28/20 09:46 4.0 10/28/20 08:54 73 116/61 10/28/20 06:00 97.2 20 97 Nasal Cannula I&O- Last 24 Hours up to 6 AM 10/28/20 06:00 Intake Total 1260 ml Output Total 1700 ml Balance -440 ml Laboratory Data Labs 24H Laboratory Tests 2 10/27/20 20:26: Bedside Glucose (Misc Panel) 197H 10/28/20 06:29: Bedside Glucose (Misc Panel) 133H 10/28/20 11:39: Bedside Glucose (Misc Panel) 233H FSBS Laboratory Tests Test 10/27/20 20:26 10/28/20 06:29 10/28/20 11:39 Range/Units Bedside Glucose (Misc Panel) 197 133 233 83-110 MG/DL Microbiology Microbiology 10/26/20 Blood Culture - Preliminary, Resulted No Growth after 48 hours. All Specime... 10/26/20 Urine Culture - Final, Complete Klebsiella Pneumoniae 10/26/20 Blood Culture - Preliminary, Resulted No Growth after 48 hours. All Specime... Discharge Medications Scheduled Albuterol Sulfate (Albuterol Sulfate) 2.5 Mg/0.5 Ml Vial.neb, 2.5 MG INH BID, (Reported) Ascorbic Acid/Vitamin E/Biotin (Hair Skin Nails-Biotin Gummies) 1 Each Tab.chew, 1 TAB PO DAILY, (Reported) Atorvastatin Calcium (Atorvastatin Calcium) 40 Mg Tablet, 40 MG PO QHS, (Reported) Biotin (Biotin) 1,000 Mcg Tab.chew, 1,000 MCG PO DAILY, (Reported) Brinzolamide/Brimonidine Tart (Simbrinza 1%-0.2% Eye Drops) 1 Stefania Stefania, 1 DROP OU BID, (Reported) Cholecalciferol (Vitamin D3) (D3-2000) 50 Mcg Capsule, 50 MCG PO DAILY, (Reported) Cyanocobalamin (Vitamin B-12) (Vitamin B-12) 1,000 Mcg Capsule, 1,000 MCG PO DAILY, (Reported) Diltiazem Hcl (Cardizem Cd) 120 Mg Cap.er.24h, 120 MG PO QAM Fluticasone/Vilanterol (Breo Ellipta 200-25 Mcg INH) 1 Each Blst.w.dev, 1 PUFF INH DAILY, (Reported) Gabapentin (Neurontin) 100 Mg Capsule, 100 MG PO BID, (Reported) Losartan Potassium (Losartan Potassium) 50 Mg Tablet, 50 MG PO QHS, (Reported) Metformin HCl (Metformin HCl) 1,000 Mg Tab, 1,000 MG PO BID, (Reported) Multivitamins (Thera M Plus Tablet) 1 Tab Tab, 1 TAB PO DAILY, (Reported) Nitrofurantoin Monohyd/M-Cryst (Nitrofurantoin [place]-Mcr 100 mg) 100 Mg Capsule, 100 MG PO DAILY Potassium Chloride (Klor-Con M10) 10 Meq Tabcr, 10 MEQ PO DAILY, (Reported) Rivaroxaban (Xarelto) 20 Mg Tab, 20 MG PO QPM, (Reported) Torsemide (Torsemide) 10 Mg Tablet, 1 TAB PO DAILY Umeclidinium [place] (Incruse Ellipta) 62.5 Mcg Blst.w.dev, 1 PUFF INH DAILY, (Reported) Scheduled PRN Albuterol Sulfate (Proair Hfa) 8.5 Gm Hfa.aer.ad, 2 PUFF INH Q6H PRN for SOB/WHEEZING, (Reported) Docusate Sodium (Stool Softener) 100 Mg Capsule, 100 MG PO BID PRN for CONSTIPATION, (Reported) Nitroglycerin (Nitroglycerin) 0.4 Mg Sub, 0.4 MG SL NITRO PRN for ANGINA, (Reported) Allergies Coded Allergies: No Known Allergies (Unverified , 07/11/19) CARMEN MCCARTHY DO Oct 28, 2020 18:47
== END 2020-10-28 12:37 | disposition home or self-care (01) | DRG 291 ==
LOC: EDBD 12:20 → M ED 12:20 → M ED INP 17:01 → ENRESERV 17:57 → M MSPAV 20:42
PROVIDERS: ADMIT Internal Medicine; ATTEND Internal Medicine
DX: I11.0 Hypertensive heart disease with heart failure (principal); J96.21 Acute and chronic respiratory failure with hypoxia; I48.20 Chronic atrial fibrillation, unspecified; C34.2 Malignant neoplasm of middle lobe, bronchus or lung; N39.0 Urinary tract infection, site not specified; I50.33 Acute on chronic diastolic (congestive) heart failure; E11.40 Type 2 diabetes mellitus with diabetic neuropathy, unspecified; J44.9 Chronic obstructive pulmonary disease, unspecified; I27.20 Pulmonary hypertension, unspecified; I25.10 Atherosclerotic heart disease of native coronary artery without angina pectoris; Z66 Do not resuscitate; I73.00 Raynaud's syndrome without gangrene; G47.30 Sleep apnea, unspecified; E78.5 Hyperlipidemia, unspecified; H40.9 Unspecified glaucoma; K64.8 Other hemorrhoids; E53.8 Deficiency of other specified B group vitamins; Z92.3 Personal history of irradiation; Z98.49 Cataract extraction status, unspecified eye; Z87.891 Personal history of nicotine dependence; Z20.822 Contact with and (suspected) exposure to COVID-19; Z79.01 Long term (current) use of anticoagulants; Z79.84 Long term (current) use of oral hypoglycemic drugs; Z79.899 Other long term (current) drug therapy

== ENCOUNTER → 2020-11-10 | Outpatient (CLI) | payer MEDICARE ==
[~2020-11-10] MED LIST changes: +CARD120C3 PO; +ISOVUE-300 61% 50ML VIAL As Ordered ONE; +LIDOCAINE 1% MDV 20ML VIAL As Ordered ONE; +MIDAZOLAM INJ 2MG/2ML VIAL (J2250 PER 1MG) As Ordered ONE; +NITR100C2 PO; +NS 1,000 ML IV SCH; +ONDANSETRON 4MG/2ML VIAL IV PRN; +PERCOCET 5MG/325MG TAB As Ordered ONE; +PERCOCET 5MG/325MG TAB PO PRN; +TORS10TA3 PO; +diphenhydrAMINE 50MG/ML VIAL (J1200) As Ordered ONE; +fentaNYL 100 MCG/2 ML INJECTION (J3010) As Ordered ONE
--- NOTE | 2020-11-10 08:19 | IRHP ---
[facility] IR Pre-Procedure H & P General Date of Service: Nov 10, 2020 Procedure: Same Day Surgery Interval History and Physical I have seen the patient and reviewed last H & P performed within 30 days. There is no significant interval change. History of Present Illness Chief Complaint The patient is a 80-year-old female admitted with a reason for visit of PAD. PRE-PROCEDURE DIAGNOSIS: PAD HEART: Normal rate. LUNGS: Normal breathing at rest. ASA Classification ASA Classification: III-Severe systemic dis. Mallampati Score: II NPO: Yes Problems with prior sedation: No Obstructive Sleep Apnea: No Plan moderate sedation Allergies Coded Allergies: No Known Allergies (Unverified , 07/11/19) Home Medications Scheduled Albuterol Sulfate (Albuterol Sulfate), 2.5 MG INH BID, (Reported) Ascorbic Acid/Vitamin E/Biotin (Hair Skin Nails-Biotin Gummies), 1 TAB PO DAILY, (Reported) Atorvastatin Calcium (Atorvastatin Calcium), 40 MG PO QHS, (Reported) Biotin (Biotin), 1,000 MCG PO DAILY, (Reported) Brinzolamide/Brimonidine Tart (Simbrinza 1%-0.2% Eye Drops), 1 DROP OU BID, (Reported) Cholecalciferol (Vitamin D3) (D3-2000), 50 MCG PO DAILY, (Reported) Cyanocobalamin (Vitamin B-12) (Vitamin B-12), 1,000 MCG PO DAILY, (Reported) Diltiazem Hcl (Cardizem Cd), 120 MG PO QAM Fluticasone/Vilanterol (Breo Ellipta 200-25 Mcg INH), 1 PUFF INH DAILY, (Reported) Gabapentin (Neurontin), 100 MG PO BID, (Reported) Losartan Potassium (Losartan Potassium), 50 MG PO QHS, (Reported) Metformin HCl (Metformin HCl), 1,000 MG PO BID, (Reported) Multivitamins (Thera M Plus Tablet), 1 TAB PO DAILY, (Reported) Nitrofurantoin Monohyd/M-Cryst (Nitrofurantoin Webb-Mcr 100 mg), 100 MG PO DAILY Potassium Chloride (Klor-Con M10), 10 MEQ PO DAILY, (Reported) Rivaroxaban (Xarelto), 20 MG PO QPM, (Reported) Torsemide (Torsemide), 1 TAB PO DAILY Umeclidinium [place] (Incruse Ellipta), 1 PUFF INH DAILY, (Reported) Scheduled PRN Albuterol Sulfate (Proair Hfa), 2 PUFF INH Q6H PRN for SOB/WHEEZING, (Reported) Docusate Sodium (Stool Softener), 100 MG PO BID PRN for CONSTIPATION, (Reported) Nitroglycerin (Nitroglycerin), 0.4 MG SL NITRO PRN for ANGINA, (Reported) VS, I&O, 24H, Fishbone Vital Signs/I&O Vital Signs Date Time Temp Pulse Resp B/P (MAP) Pulse Ox O2 Delivery O2 Flow Rate FiO2 11/10/20 07:16 98.2 72 18 98 Nasal Cannula 2.0 VAL COURTNEY MD Nov 10, 2020 08:19
[2020-11-10 16:00] VITALS: BP 121/69
--- NOTE | 2020-11-14 13:03 | IRPON ---
IR Postoperative Note Date Of Procedure: Nov 10, 2020 Time Of Procedure: 16:00 IR Postoperative Note IR Right leg angiogram IR Below-knee runoff arteriogram. IR Ultrasound-guided left common femoral artery access. IR Moderate sedation. Clinical Information:Right greater than left, bilateral lower extremity rest pain and nonhealing right lower extremity ulcers. Physician: Dr. Randall. Procedure: The patient was advised of the benefits, risks, and alternatives of the procedure and informed consent was obtained. A time out was performed with verification of the patient's name, MRN, site of procedure, and type of procedure to be performed. The patient was positioned in the supine position on the angiographic table. The site was prepped and draped in the usual sterile fashion. Moderate sedation was performed by the physician including the presence of an independent trained RN, who assisted in monitoring the patient's level of consciousness and physiological status. Following the administration of fentanyl and Versed, the physician spent 90 minutes of continuous [id number] time with the patient. A machine rope maker radiograph reveals heavily calcified vasculature. Ultrasound of the left groin demonstrates calcified, patent left common femoral artery. Lidocaine was used for local anesthesia. The left common femoral artery was accessed, under ultrasound guidance with a microintroducer set. A short 0.018" Linton wire was inserted and the needle was exchanged for a 4 Fr microintroducer sheath. The guidewire and dilator were removed and a 0.035" Bentson wire was advanced under fluoroscopy guidance and placed into the abdominal aorta. A 6 Fr sheath was placed over the wire. A 5 Algerian Omni flush catheter was advanced over the wire under fluoroscopy guidance, and used to catheterize the infrarenal abdominal aorta. A pelvic arteriogram was performed and this demonstrates calcified, atherosclerotic, infrarenal abdominal aorta. Patent bilateral common iliac, internal iliac and external iliac arteries with atherosclerosis. Patent right common femoral artery. The catheter in conjunction with the wire, was used under fluoroscopy guidance, to gain up and over access into the right common iliac artery. The catheter was removed over the wire. A glide cath was advanced over the wire, under fluorosc opy guidance and used to catheterize the right common femoral artery. A right leg angiogram was performed and this demonstrates multifocal complete occlusions of the right superficial femoral artery. Patent profunda femoris. Collaterals in the thigh. Angiography further down the right leg was performed and this demonstrates irregular atherosclerotic popliteal artery with multifocal occlusions. A right leg below knee runoff arteriogram was performed and this demonstrates one-vessel anterior tibial artery runoff to the right foot and patent dorsalis pedis. Occluded peroneal artery and posterior tibial artery. The catheter was removed over the wire. The sheath was exchanged over the wire for a 6F 45 cm destination sheath. The destination sheath was advanced over the wire under fluoroscopy guidance and positioned in the right common femoral artery. A Navicross catheter in conjunction with a glide wire, was used under fluoroscopy guidance to try to catheterize the right superficial femoral artery. However, this was not successful. Catheter and wire were removed. The long sheath was exchanged over the wire for a short sheath. A 6 Algerian Mynx device was used to close the left groin arteriotomy, hemostasis achieved and a sterile dressing was applied to the site. The patient tolerated the procedure well and was returned to the PRU in stable condition. EBL: < 5 mL. Complications:None. Impression: 1. 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 Both vessels are heavily calcified. 2. Below-knee runoff demonstrate single vessel anterior tibial artery runoff to the right foot. Unsuccessful antegrade recanalization of heavily calcified superficial femoral artery. Given calcium burden and single vessel runoff to the right foot, I don't feel a retrograde pedal attempt at endovascular recanalization is a good idea. Patient will be referred to vascular surgery for further evaluation. Thank you for this referral. Cc VAL Chand MD Nov 14, 2020 13:03
== END ==
LOC: M IRPRO 07:05
PROVIDERS: ATTEND Radiology Diagnostic Radiology
DX: I70.223 Atherosclerosis of native arteries of extremities with rest pain, bilateral legs (principal); I70.92 Chronic total occlusion of artery of the extremities; L97.919 Non-pressure chronic ulcer of unspecified part of right lower leg with unspecified severity; Z79.84 Long term (current) use of oral hypoglycemic drugs; Z79.899 Other long term (current) drug therapy
CPT/HCPCS: 36247; 75630; 75774; 99152; 99153; C1760; C1769; C1887; C1894; G0269; J1644; J2250; J3010; Q9967

== ENCOUNTER → 2020-11-29 | Outpatient (CLI) | payer MEDICARE ==
[~2020-11-29] MED LIST changes: -ISOVUE-300 61% 50ML VIAL As Ordered ONE; -LIDOCAINE 1% MDV 20ML VIAL As Ordered ONE; -MIDAZOLAM INJ 2MG/2ML VIAL (J2250 PER 1MG) As Ordered ONE; -NS 1,000 ML IV SCH; -ONDANSETRON 4MG/2ML VIAL IV PRN; -PERCOCET 5MG/325MG TAB As Ordered ONE; -PERCOCET 5MG/325MG TAB PO PRN; -diphenhydrAMINE 50MG/ML VIAL (J1200) As Ordered ONE; -fentaNYL 100 MCG/2 ML INJECTION (J3010) As Ordered ONE
[2020-11-29 13:40] LABS: HEMATOCRIT 35.3 % (36.0-47.0); MEAN CORPUSCULAR HEMOGLOBIN 32.2 pg (27.0-33.0); MEAN CORPUSCULAR HGB CONC 31.2 g/dl (32.0-36.5); MEAN CORPUSCULAR VOLUME 103.2 fl (80.0-96.0); PLATELET COUNT, AUTOMATED 262 10^3/uL (150-450); RED BLOOD COUNT 3.42 10^6/uL (4.00-5.40); WHITE BLOOD COUNT 7.5 10^3/uL (4.0-10.0)
[2020-11-29 14:03] LABS: BLOOD UREA NITROGEN 9 MG/DL (7-18); CALCIUM LEVEL 8.7 MG/DL (8.8-10.2); CARBON DIOXIDE LEVEL 32 MEQ/L (21-32); CHLORIDE LEVEL 105 MEQ/L (98-107); GLOMERULAR FILTRATION RATE > 60.0 (>39); GLUCOSE, FASTING 90 MG/DL (70-100); NT-PRO BNP 468 PG/ML (<450); POTASSIUM SERUM 4.1 MEQ/L (3.5-5.1); SODIUM LEVEL 141 MEQ/L (136-145)
--- NOTE | 2020-11-29 16:02 | REP ---
INDICATION: SHORTNESS OF BREATH -LAB 1 COMPARISON: Multiple examinations dating through 07/11/2019 TECHNIQUE: PA and lateral. FINDINGS: Ovoid opacity with spiculated margins in the basilar aspect right upper lobe again noted. Bibasilar atelectasis and small pleural effusions (left greater than right) are now suspected. Mediastinum and cardiac silhouette are stable. No pneumothorax. Skeletal structures intact. IMPRESSION: 1. Spiculated ovoid density in the basilar right upper lobe again noted and suspicious for neoplasm. 2. Bibasilar atelectasis and small pleural effusions (left greater than right) suspected. <Electronically signed by Mathew Sparks > 11/29/20 1190
== END ==
LOC: M LAB 11:51 → M RAD 11:51
PROVIDERS: ATTEND Nurse Practitioner Family
DX: J98.11 Atelectasis (principal); J90 Pleural effusion, not elsewhere classified; R91.8 Other nonspecific abnormal finding of lung field; R06.02 Shortness of breath

== ENCOUNTER → 2020-11-29 | Outpatient (REF) | payer MEDICARE | LOC: M SFHCLERA 10:25 | PROVIDERS: ATTEND Nurse Practitioner Family | DX: R06.02 Shortness of breath (principal) ==

== ENCOUNTER → 2020-11-29 | Outpatient (POV) | payer MEDICARE ==
[~2020-11-29] VITALS: Ht 152.4 cm; Wt 63.2 kg
[~2020-11-29] MED LIST changes: +BREO1INH3 PO; +D31000TA2 PO; +[UNRECOGNIZED DRUG - CODE] SL
[2020-11-29 07:45] VITALS: BP 163/67
--- NOTE | 2020-12-01 12:46 | IRPN ---
[facility] IR Progress Note IR Progress Note DATE: Nov 29, 2020 FOLLOW-UP: Patient is status post right lower extremity angiography for evaluation of ulcers refractory to healing. Right lower extremity angiography demonstrated multifocal occlusions in the SFA and popliteal artery with single vessel anterior tibial artery runoff to the right foot. Vessels are heavily calcified and were not amenable to endovascular recanalization. Patient has been referred to Dr. Espinoza Vascular surgery for bypass options. ON EXAMINATION: Groin access site is healed up. No bruising, swelling or pulsatile mass. IMPRESSION: Doing well status post right lower extremity angiography. Angiography demonstrated heavily calcified vessels and multifocal occlusions in the SFA and popliteal artery with single vessel runoff to the right foot. This was not amenable to endovascular recanalization. Patient has been referred for to vascular surgery, Dr Espinoza to explore potential bypass options. Thank you for this referral. Cc Dr. Bailey Allergies Coded Allergies: No Known Allergies (Unverified , 07/11/19) VS,Fishbone, I+O VS, Fishbone, I+O Vital Signs Date Time Temp Pulse Resp B/P (MAP) Pulse Ox O2 Delivery O2 Flow Rate FiO2 11/29/20 07:45 98.4 78 22 163/67 (99) 90 Nasal Cannula 3.0 VAL COURTNEY MD Dec 01, 2020 12:46
== END ==
LOC: M IRPOV 07:36
PROVIDERS: ATTEND Radiology Diagnostic Radiology
DX: I70.239 Atherosclerosis of native arteries of right leg with ulceration of unspecified site (principal); L97.919 Non-pressure chronic ulcer of unspecified part of right lower leg with unspecified severity
CPT/HCPCS: 93005; G0463

== ENCOUNTER → 2021-01-02 | Outpatient (REF) | payer MEDICARE ==
[2021-01-02 13:38] LABS: BLOOD UREA NITROGEN 14 MG/DL (7-18); CALCIUM LEVEL 8.1 MG/DL (8.8-10.2); CARBON DIOXIDE LEVEL 30 MEQ/L (21-32); CHLORIDE LEVEL 105 MEQ/L (98-107); CREATININE FOR GFR 0.41 MG/DL (0.55-1.30); GLOMERULAR FILTRATION RATE > 60.0 (>39); GLUCOSE, FASTING 107 MG/DL (70-100); NT-PRO BNP 430 PG/ML (<450); POTASSIUM SERUM 3.5 MEQ/L (3.5-5.1); SODIUM LEVEL 141 MEQ/L (136-145)
== END ==
LOC: M WUC 12:25
PROVIDERS: ATTEND Physician Assistant
DX: I50.32 Chronic diastolic (congestive) heart failure (principal)

== ENCOUNTER → 2021-05-22 | Outpatient (CLI) | payer MEDICARE ==
[~2021-05-22] MED LIST changes: -FENO48TA7 PO; +FENO48TA8 PO; -KLOR10TA76 PO; +LOSA50TA28 PO; -LOSA50TA88 PO; +POTA-136 PO
== END ==
LOC: M LABSMTC 10:10
PROVIDERS: ATTEND Anesthesiology
DX: Z01.818 Encounter for other preprocedural examination (principal); Z11.52 Encounter for screening for COVID-19

== ENCOUNTER 2021-09-10 08:34 | Emergency (ER) | payer MEDICARE ==
[~2021-09-10] VITALS: Ht 152.4 cm; Wt 53.2 kg
[~2021-09-10 08:34] MED LIST changes: -D31000TA2 PO; +VITA100093 PO
[2021-09-10 10:24] LABS: BASO # 0.1 10^3/uL (0.0-0.2); BASO % 0.7 % (0.0-1.0); EOS # 0.1 10^3/uL (0.0-0.5); EOS % 1.1 % (0.0-3.0); HEMATOCRIT 36.1 % (36.0-47.0); HEMOGLOBIN 11.5 g/dl (12.0-15.5); LYMPH # 1.6 10^3/uL (1.5-5.0); MEAN CORPUSCULAR HEMOGLOBIN 32.8 pg (27.0-33.0); MEAN CORPUSCULAR HGB CONC 31.9 g/dl (32.0-36.5); MEAN CORPUSCULAR VOLUME 102.8 fl (80.0-96.0); MONO # 0.8 10^3/uL (0.0-0.8); MONO % 8.9 % (2.0-8.0); NEUTROPHILS # 6.6 10^3/uL (1.5-8.5); PLATELET COUNT, AUTOMATED 220 10^3/uL (150-450); RED BLOOD COUNT 3.51 10^6/uL (4.00-5.40); WHITE BLOOD COUNT 9.1 10^3/uL (4.0-10.0)
[2021-09-10 10:39] LABS: BLOOD UREA NITROGEN 15 MG/DL (7-18); CALCIUM LEVEL 9.1 MG/DL (8.8-10.2); CARBON DIOXIDE LEVEL 35 MEQ/L (21-32); CHLORIDE LEVEL 101 MEQ/L (98-107); CREATININE FOR GFR 0.37 MG/DL (0.55-1.30); GLOMERULAR FILTRATION RATE > 60.0 (>32); GLUCOSE, FASTING 92 MG/DL (70-100); INR 1.39; POTASSIUM SERUM 3.9 MEQ/L (3.5-5.1); PROTHROMBIN TIME 17.5 SECONDS (12.7-14.5); SODIUM LEVEL 143 MEQ/L (136-145)
[2021-09-10 10:40] LABS: PARTIAL THROMBOPLASTIN TIME 34.5 SECONDS (25.9-37.0)
[2021-09-10 11:04] LABS: RSV AMPLIFICATION NEGATIVE (NEGATIVE)
[2021-09-10] MEDS ORDERED: MECLIZINE 25 MG TABLET PO ONE (13:10)
[2021-09-10] MEDS ORDERED: Vestibular PT (15:14)
[2021-09-10] MEDS ORDERED: MECL1TAB31 PO (15:14)
[2021-09-10 15:19] VITALS: BP 126/74
== END 2021-09-10 16:06 | disposition home or self-care (01) ==
LOC: EDBD 08:34 → M ED 08:34
DX: H81.10 Benign paroxysmal vertigo, unspecified ear (principal); E11.51 Type 2 diabetes mellitus with diabetic peripheral angiopathy without gangrene; I50.32 Chronic diastolic (congestive) heart failure; I11.0 Hypertensive heart disease with heart failure; J44.9 Chronic obstructive pulmonary disease, unspecified; I48.91 Unspecified atrial fibrillation; I25.10 Atherosclerotic heart disease of native coronary artery without angina pectoris; I73.9 Peripheral vascular disease, unspecified; E78.5 Hyperlipidemia, unspecified; L71.9 Rosacea, unspecified; Z85.118 Personal history of other malignant neoplasm of bronchus and lung; Z87.891 Personal history of nicotine dependence; Z79.899 Other long term (current) drug therapy; Z79.84 Long term (current) use of oral hypoglycemic drugs; Z79.01 Long term (current) use of anticoagulants

== ENCOUNTER → 2021-09-27 | Outpatient (CLI) | payer MEDICARE ==
[~2021-09-27] MED LIST changes: +CITRACAL MAXIMU1 TAB PO; -CITRTAB16 PO; +MECL1TAB31 PO; +Vestibular PT
== END ==
LOC: M ONCR 12:43
PROVIDERS: ATTEND General Practice
DX: C32.1 Malignant neoplasm of supraglottis (principal); Z87.891 Personal history of nicotine dependence; Z85.118 Personal history of other malignant neoplasm of bronchus and lung; Z92.3 Personal history of irradiation; Z79.899 Other long term (current) drug therapy
CPT/HCPCS: 31575; G0463

== ENCOUNTER → 2021-10-24 | Outpatient (RCR) | payer MEDICARE | LOC: M ONCR 10-05 08:33 | PROVIDERS: ATTEND General Practice | DX: C32.1 Malignant neoplasm of supraglottis (principal) ==

== ENCOUNTER → 2021-11-23 | Outpatient (RCR) | payer MEDICARE ==
[~2021-11-23] MED LIST changes: +OXYC1SOL3 PO
== END ==
LOC: M ONCR 10-25 13:14
PROVIDERS: ATTEND General Practice
DX: C32.1 Malignant neoplasm of supraglottis (principal)

== ENCOUNTER 2021-12-04 13:13 | Outpatient (RCR) | payer MEDICARE ==
[2021-12-20] MEDS ORDERED: PRED20TA PO (18:00)
[2021-12-20] MEDS ORDERED: CEFD300C PO (18:02)
== END 2021-12-24 ==
LOC: M ONCR 13:13
PROVIDERS: ATTEND General Practice
DX: C32.1 Malignant neoplasm of supraglottis (principal); C34.11 Malignant neoplasm of upper lobe, right bronchus or lung

== ENCOUNTER → 2021-12-19 | Outpatient (CLI) | payer MEDICARE ==
[~2021-12-19] MED LIST changes: +CEFD300C PO
== END ==
LOC: M ONCR 13:15
PROVIDERS: ATTEND General Practice
DX: C32.1 Malignant neoplasm of supraglottis (principal); Z92.3 Personal history of irradiation; Z85.118 Personal history of other malignant neoplasm of bronchus and lung

== ENCOUNTER 2021-12-20 11:51 | Emergency (ER) | payer MEDICARE ==
[~2021-12-20] VITALS: Ht 152.4 cm; Wt 50.0 kg
[~2021-12-20 11:51] MED LIST changes: -CEFD300C PO
[2021-12-20 12:38] LABS: BASO # 0.1 10^3/uL (0.0-0.2); BASO % 0.7 % (0.0-1.0); EOS # 0.3 10^3/uL (0.0-0.5); EOS % 3.1 % (0.0-3.0); HEMATOCRIT 36.9 % (36.0-47.0); HEMOGLOBIN 11.9 g/dl (12.0-15.5); LYMPH # 0.9 10^3/uL (1.5-5.0); LYMPH % 11.2 % (24.0-44.0); MEAN CORPUSCULAR HEMOGLOBIN 33.1 pg (27.0-33.0); MEAN CORPUSCULAR HGB CONC 32.2 g/dl (32.0-36.5); MEAN CORPUSCULAR VOLUME 102.5 fl (80.0-96.0); MONO # 0.6 10^3/uL (0.0-0.8); MONO % 7.3 % (2.0-8.0); NEUTROPHILS # 6.2 10^3/uL (1.5-8.5); NEUTROPHILS % 77.5 % (36.0-66.0); PLATELET COUNT, AUTOMATED 240 10^3/uL (150-450)
[2021-12-20 13:46] LABS: ALBUMIN 3.4 GM/DL (3.2-5.2); ALT/SGPT 19 U/L (12-78); BILIRUBIN,DIRECT 0.1 MG/DL (0.0-0.2); BILIRUBIN,TOTAL 0.6 MG/DL (0.2-1.0); BLOOD UREA NITROGEN 9 MG/DL (7-18); CALCIUM LEVEL 9.3 MG/DL (8.8-10.2); CARBON DIOXIDE LEVEL 35 MEQ/L (21-32); CHLORIDE LEVEL 100 MEQ/L (98-107); CREATININE FOR GFR 0.41 MG/DL (0.55-1.30); GLOMERULAR FILTRATION RATE > 60.0 (>32); GLUCOSE, FASTING 114 MG/DL (70-100); POTASSIUM SERUM 3.4 MEQ/L (3.5-5.1); SODIUM LEVEL 140 MEQ/L (136-145); TOTAL PROTEIN 7.2 GM/DL (6.4-8.2)
[2021-12-20 14:12] LABS: CK-MB VALUE MASS 1.8 NG/ML (<3.6); MB/CK RELATIVE INDEX 4.62 (< OR =4)
[2021-12-20] MEDS ORDERED: ISOVUE-370 76% 100ML VIAL As Ordered ONE (16:31)
[2021-12-20] MEDS ORDERED: PRED20TA PO (18:00)
[2021-12-20] MEDS ORDERED: CEFD300C PO (18:02)
[2021-12-20 18:23] VITALS: BP 134/73
== END 2021-12-20 18:34 | disposition home or self-care (01) ==
LOC: M ED 11:51
DX: J44.9 Chronic obstructive pulmonary disease, unspecified (principal); I10 Essential (primary) hypertension; E78.5 Hyperlipidemia, unspecified; G47.30 Sleep apnea, unspecified; I48.91 Unspecified atrial fibrillation; Z85.21 Personal history of malignant neoplasm of larynx; Z92.3 Personal history of irradiation; Z99.81 Dependence on supplemental oxygen; Z87.891 Personal history of nicotine dependence; Z79.899 Other long term (current) drug therapy; Z79.84 Long term (current) use of oral hypoglycemic drugs
CPT/HCPCS: 36415; 70491; 71045; 71275; 80048; 80076; 82550; 82553; 84484; 85025; 87486; 87581; 87633; 87798; 93005; 93041; 94760; 99285; Q9967

== ENCOUNTER 2022-01-22 10:55 | Outpatient (RCR) | payer MEDICARE ==
[2022-01-22] MEDS ORDERED: PRED20TA PO (13:47)
== END 2022-01-24 ==
LOC: M PT 10:55
PROVIDERS: ATTEND Student in an Organized Health Care Education/Training Program
DX: H81.12 Benign paroxysmal vertigo, left ear (principal)

== ENCOUNTER → 2022-01-22 | Outpatient (CLI) | payer MEDICARE ==
[~2022-01-22] MED LIST changes: +CEFD300C PO
== END ==
LOC: M ONCR 12:17
PROVIDERS: ATTEND General Practice
DX: C32.1 Malignant neoplasm of supraglottis (principal); Z92.3 Personal history of irradiation

== ENCOUNTER → 2022-02-01 | Outpatient (CLI) | payer MEDICARE ==
[2022-02-01 12:48] LABS: HEMOGLOBIN A1c 6.7 %
== END ==
LOC: M LAB 10:52
PROVIDERS: ATTEND Student in an Organized Health Care Education/Training Program
DX: E11.9 Type 2 diabetes mellitus without complications (principal)

== ENCOUNTER 2022-02-07 14:56 | Outpatient (RCR) | payer MEDICARE ==
[2022-02-19] MEDS ORDERED: BUDE0.5S6 INH (14:20)
[2022-02-21] MEDS ORDERED: BUDE0.5S6 INH (11:32)
[2022-02-22] MEDS ORDERED: TORS10TA3 PO (19:31)
[2022-02-22] MEDS ORDERED: PT COMMENT (19:32)
== END 2022-02-23 ==
LOC: M PT 14:56
PROVIDERS: ATTEND Student in an Organized Health Care Education/Training Program
DX: H81.12 Benign paroxysmal vertigo, left ear (principal)

== ENCOUNTER 2022-02-22 11:04 | Inpatient (IN) | payer MEDICARE ==
[~2022-02-22] VITALS: Ht 152.4 cm; Wt 59.1 kg
[~2022-02-22 11:04] MED LIST changes: +BUDE0.5S6 INH
[2022-02-22 12:10] LABS: VENOUS BASE EXCESS 8.9 (-2.0-2.0); VENOUS O2 SATURATION 73.5 % (60.0-80.0); VENOUS PARTIAL PRESSURE CO2 61.8 mmHg (38.0-50.0); VENOUS PH 7.383 UNITS (7.330-7.430); VENOUS STANDARD HCO3 32.1 MEQ/L; VENOUS TOTAL CO2 37.9 MEQ/L (24.0-28.0)
[2022-02-22 12:16] LABS: BASO # 0.1 10^3/uL (0.0-0.2); EOS # 0.4 10^3/uL (0.0-0.5); EOS % 5.9 % (0.0-3.0); HEMATOCRIT 34.9 % (36.0-47.0); HEMOGLOBIN 11.3 g/dl (12.0-15.5); LYMPH # 0.8 10^3/uL (1.5-5.0); MEAN CORPUSCULAR HEMOGLOBIN 33.2 pg (27.0-33.0); MEAN CORPUSCULAR HGB CONC 32.4 g/dl (32.0-36.5); MEAN CORPUSCULAR VOLUME 102.6 fl (80.0-96.0); MONO # 0.7 10^3/uL (0.0-0.8); MONO % 9.8 % (2.0-8.0); NEUTROPHILS # 4.8 10^3/uL (1.5-8.5); NEUTROPHILS % 70.9 % (36.0-66.0); PLATELET COUNT, AUTOMATED 248 10^3/uL (150-450); WHITE BLOOD COUNT 6.8 10^3/uL (4.0-10.0)
[2022-02-22 12:57] LABS: CK-MB VALUE MASS 1.6 NG/ML (<3.6); MB/CK RELATIVE INDEX 1.03 (< OR =4)
[2022-02-22 13:11] LABS: ALBUMIN 3.6 GM/DL (3.2-5.2); ALT/SGPT 24 U/L (12-78); BILIRUBIN,DIRECT < 0.1 MG/DL (0.0-0.2); BILIRUBIN,TOTAL 0.6 MG/DL (0.2-1.0); BLOOD UREA NITROGEN 21 MG/DL (7-18); CALCIUM LEVEL 9.2 MG/DL (8.8-10.2); CARBON DIOXIDE LEVEL 33 MEQ/L (21-32); CHLORIDE LEVEL 96 MEQ/L (98-107); ETHYL ALCOHOL (ETHANOL) < 0.003 % (0.000-0.010); GLOMERULAR FILTRATION RATE > 60.0 (>32); GLUCOSE, FASTING 105 MG/DL (70-100); POTASSIUM SERUM 4.7 MEQ/L (3.5-5.1); SODIUM LEVEL 133 MEQ/L (136-145); TOTAL PROTEIN 7.5 GM/DL (6.4-8.2)
[2022-02-22 13:27] LABS: OSMOLALITY SERUM 289 MOSM/KG (280-301)
[2022-02-22] MEDS ORDERED: ARIPiprazole 2 MG TAB PO ONE (14:35)
[2022-02-22 14:45] LABS: INR 1.26; PROTHROMBIN TIME 16.2 SECONDS (12.7-14.5)
[2022-02-22 14:46] LABS: PARTIAL THROMBOPLASTIN TIME 33.8 SECONDS (25.9-37.0)
[2022-02-22 15:56] LABS: RSV AMPLIFICATION NEGATIVE (NEGATIVE)
[2022-02-22] MEDS ORDERED: MOM 30ML SUSPENSION UDC PO PRN (17:35)
[2022-02-22] MEDS ORDERED: GLUCOSE 4GM CHEW TABLET PO PRN (17:35)
[2022-02-22] MEDS ORDERED: DEXTROSE 50% 50 ML SYRINGE IV PRN (17:35)
[2022-02-22] MEDS ORDERED: GLUCAGON INJ 1MG VIAL SC PRN (17:35)
[2022-02-22] MEDS ORDERED: diphenhydrAMINE 25MG CAP PO PRN (17:35)
[2022-02-22] MEDS ORDERED: IPRATROPIUM 0.5MG/ALBUTEROL 2.5MG INH SOL UD 3ML (DUONEB) NEB PRN (17:35)
[2022-02-22] MEDS ORDERED: cefTRIAXone SOD 2 GM in D5W MINI-BAG PLUS 50 ML IV SCH ×2 (18:15→20:00)
[2022-02-22] MEDS ORDERED: MIRALAX *UNIT DOSE* 17GM PACKET PO PRN (19:10)
[2022-02-22] MEDS ORDERED: TORS10TA3 PO (19:31)
[2022-02-22] MEDS ORDERED: PT COMMENT (19:32)
[2022-02-22] MEDS ORDERED: HOME MED LIST COMPLETE! XX SCH (19:35)
[2022-02-22] MEDS: IPRATROPIUM 0.5MG/ALBUTEROL 2.5MG INH SOL UD 3ML (DUONEB) NEB SCH (20:00)
[2022-02-22 21:17] VITALS: BP 134/81
[2022-02-23] MEDS: INSULIN LISPRO (NovoLOG) PER UNIT SC SCH ×5 (00:06→21:00)
[2022-02-23] MEDS: IPRATROPIUM 0.5MG/ALBUTEROL 2.5MG INH SOL UD 3ML (DUONEB) NEB SCH ×4 (02:00→21:02)
[2022-02-23 04:16] VITALS: O2SAT 92
[2022-02-23 06:00] VITALS: BP 116/65
[2022-02-23] MEDS ORDERED: ALBUTEROL 90 MCG/ACT 8GM HFA INHALER INH PRN (07:00)
[2022-02-23 08:02] LABS: BLOOD UREA NITROGEN 13 MG/DL (7-18); CALCIUM LEVEL 8.9 MG/DL (8.8-10.2); CARBON DIOXIDE LEVEL 33 MEQ/L (21-32); CHLORIDE LEVEL 98 MEQ/L (98-107); CREATININE FOR GFR 0.37 MG/DL (0.55-1.30); GLOMERULAR FILTRATION RATE > 60.0 (>32); GLUCOSE, FASTING 82 MG/DL (70-100); MAGNESIUM LEVEL 1.6 MG/DL (1.8-2.4); POTASSIUM SERUM 3.2 MEQ/L (3.5-5.1); SODIUM LEVEL 136 MEQ/L (136-145)
[2022-02-23] MEDS: CHLORTHALIDONE 25 MG TAB PO SCH (08:52)
[2022-02-23] MEDS: MULTIVITAMINS/MINERALS THERAP 1 TAB PO SCH (08:52)
[2022-02-23] MEDS: GABAPENTIN 100 MG CAP PO SCH ×2 (08:52→20:11)
[2022-02-23] MEDS: VITAMIN D 1,000 INTERNATIONAL UNITS TABLET PO SCH (08:52)
[2022-02-23] MEDS: MAG SULF 1GM/100ML (MAG RUN) 1 GM in IV 1 EA IV SCH ×2 (12:00→14:11)
[2022-02-23 12:06] LABS: VITAMIN B12 LEVEL > 2000 PG/ML (247-911)
[2022-02-23] MEDS: POTASSIUM CHLORIDE 10MEQ SR TABLET PO SCH ×2 (12:45→20:12)
[2022-02-23] MEDS: ARIPiprazole 10 MG TAB PO SCH (13:50)
[2022-02-23] MEDS: QUEtiapine FUMARATE 25 MG TAB PO PRN ×2 (13:50→20:14)
[2022-02-23] MEDS: CEFDINIR 300 MG CAP (OMNICEF) PO SCH ×2 (13:50→20:10)
[2022-02-23 14:00] VITALS: BP 122/63
[2022-02-23] MEDS: RIVAROXABAN 20MG TAB (XARELTO) PO SCH (17:14)
[2022-02-23 20:00] VITALS: BP 116/61
[2022-02-23] MEDS: ATORVASTATIN 20 MG TAB PO SCH (20:12)
[2022-02-23] MEDS: LOSARTAN 50MG TABLET PO SCH (20:12)
[2022-02-24] MEDS: IPRATROPIUM 0.5MG/ALBUTEROL 2.5MG INH SOL UD 3ML (DUONEB) NEB SCH ×4 (02:00→20:59)
[2022-02-24 06:00] VITALS: BP 121/64
[2022-02-24 06:59] VITALS: O2SAT 99
[2022-02-24 07:23] LABS: BLOOD UREA NITROGEN 12 MG/DL (7-18); CALCIUM LEVEL 8.6 MG/DL (8.8-10.2); CARBON DIOXIDE LEVEL 35 MEQ/L (21-32); CHLORIDE LEVEL 96 MEQ/L (98-107); CREATININE FOR GFR 0.31 MG/DL (0.55-1.30); GLOMERULAR FILTRATION RATE > 60.0 (>32); GLUCOSE, FASTING 142 MG/DL (70-100); MAGNESIUM LEVEL 1.7 MG/DL (1.8-2.4); POTASSIUM SERUM 3.6 MEQ/L (3.5-5.1); SODIUM LEVEL 134 MEQ/L (136-145)
[2022-02-24] MEDS ORDERED: MAG SULF 1GM/100ML (MAG RUN) 1 GM in IV 1 EA IV ONE (09:00)
[2022-02-24] MEDS: INSULIN LISPRO (NovoLOG) PER UNIT SC SCH ×4 (09:37→21:00)
[2022-02-24] MEDS: ARIPiprazole 10 MG TAB PO SCH (09:38)
[2022-02-24] MEDS: VITAMIN D 1,000 INTERNATIONAL UNITS TABLET PO SCH (09:38)
[2022-02-24] MEDS: CEFDINIR 300 MG CAP (OMNICEF) PO SCH ×2 (09:38→20:01)
[2022-02-24] MEDS: MULTIVITAMINS/MINERALS THERAP 1 TAB PO SCH (09:39)
[2022-02-24] MEDS: CHLORTHALIDONE 25 MG TAB PO SCH (09:39)
[2022-02-24] MEDS: GABAPENTIN 100 MG CAP PO SCH ×2 (09:39→20:01)
[2022-02-24] MEDS ORDERED: POTASSIUM CHLORIDE 10MEQ SR TABLET PO ONE (11:00)
[2022-02-24 14:00] VITALS: BP 121/62
[2022-02-24] MEDS: RIVAROXABAN 20MG TAB (XARELTO) PO SCH (17:39)
[2022-02-24 20:00] VITALS: BP 137/74
[2022-02-24] MEDS: QUEtiapine FUMARATE 25 MG TAB PO PRN (20:01)
[2022-02-24] MEDS: ATORVASTATIN 20 MG TAB PO SCH (20:01)
[2022-02-24] MEDS: LOSARTAN 50MG TABLET PO SCH (20:01)
[2022-02-25] MEDS: IPRATROPIUM 0.5MG/ALBUTEROL 2.5MG INH SOL UD 3ML (DUONEB) NEB SCH ×4 (02:00→20:10)
[2022-02-25 02:33] VITALS: O2SAT 99
[2022-02-25 06:00] VITALS: BP 106/60
[2022-02-25 06:32] LABS: BLOOD UREA NITROGEN 11 MG/DL (7-18); CALCIUM LEVEL 8.4 MG/DL (8.8-10.2); CARBON DIOXIDE LEVEL 37 MEQ/L (21-32); CHLORIDE LEVEL 98 MEQ/L (98-107); CREATININE FOR GFR 0.34 MG/DL (0.55-1.30); GLOMERULAR FILTRATION RATE > 60.0 (>32); GLUCOSE, FASTING 118 MG/DL (70-100); MAGNESIUM LEVEL 1.9 MG/DL (1.8-2.4); POTASSIUM SERUM 3.6 MEQ/L (3.5-5.1); SODIUM LEVEL 136 MEQ/L (136-145)
[2022-02-25] MEDS: INSULIN LISPRO (NovoLOG) PER UNIT SC SCH ×4 (07:56→21:00)
[2022-02-25] MEDS: MULTIVITAMINS/MINERALS THERAP 1 TAB PO SCH (08:01)
[2022-02-25] MEDS: VITAMIN D 1,000 INTERNATIONAL UNITS TABLET PO SCH (08:01)
[2022-02-25] MEDS: CHLORTHALIDONE 25 MG TAB PO SCH (08:02)
[2022-02-25] MEDS: GABAPENTIN 100 MG CAP PO SCH ×2 (08:02→21:36)
[2022-02-25] MEDS: CEFDINIR 300 MG CAP (OMNICEF) PO SCH ×2 (08:02→21:40)
[2022-02-25] MEDS: ARIPiprazole 10 MG TAB PO SCH (08:02)
[2022-02-25] MEDS: ACETAMINOPHEN TAB 650MG DOSE (2X325MG) PO PRN (11:28)
[2022-02-25] MEDS ORDERED: POTASSIUM CHLORIDE 10MEQ SR TABLET PO ONE (12:00)
[2022-02-25 12:33] LABS: VENOUS BASE EXCESS 6.9 (-2.0-2.0); VENOUS HCO3 34.4 MEQ/L (23.0-27.0); VENOUS O2 SATURATION 85.7 % (60.0-80.0); VENOUS PARTIAL PRESSURE CO2 64.4 mmHg (38.0-50.0); VENOUS PARTIAL PRESSURE O2 52.9 mmHg (30.0-50.0); VENOUS PH 7.345 UNITS (7.330-7.430); VENOUS STANDARD HCO3 30.4 MEQ/L; VENOUS TOTAL CO2 36.3 MEQ/L (24.0-28.0)
[2022-02-25] MEDS: RIVAROXABAN 20MG TAB (XARELTO) PO SCH (17:39)
[2022-02-25] MEDS: LOSARTAN 50MG TABLET PO SCH (21:36)
[2022-02-25] MEDS: ATORVASTATIN 20 MG TAB PO SCH (21:36)
[2022-02-25] MEDS: QUEtiapine FUMARATE 25 MG TAB PO PRN (21:36)
[2022-02-26] MEDS: ACETAMINOPHEN TAB 650MG DOSE (2X325MG) PO PRN ×2 (01:55→22:34)
[2022-02-26] MEDS: IPRATROPIUM 0.5MG/ALBUTEROL 2.5MG INH SOL UD 3ML (DUONEB) NEB SCH ×4 (02:00→20:00)
[2022-02-26 06:00] VITALS: BP 103/46
[2022-02-26 06:44] LABS: BLOOD UREA NITROGEN 12 MG/DL (7-18); CALCIUM LEVEL 8.3 MG/DL (8.8-10.2); CARBON DIOXIDE LEVEL 37 MEQ/L (21-32); CHLORIDE LEVEL 98 MEQ/L (98-107); CREATININE FOR GFR 0.36 MG/DL (0.55-1.30); GLOMERULAR FILTRATION RATE > 60.0 (>32); GLUCOSE, FASTING 131 MG/DL (70-100); POTASSIUM SERUM 3.5 MEQ/L (3.5-5.1); SODIUM LEVEL 136 MEQ/L (136-145)
[2022-02-26 08:19] VITALS: O2SAT 96
[2022-02-26] MEDS: GABAPENTIN 100 MG CAP PO SCH ×2 (08:30→22:33)
[2022-02-26] MEDS: MULTIVITAMINS/MINERALS THERAP 1 TAB PO SCH (08:30)
[2022-02-26] MEDS: VITAMIN D 1,000 INTERNATIONAL UNITS TABLET PO SCH (08:30)
[2022-02-26] MEDS: ARIPiprazole 10 MG TAB PO SCH (08:30)
[2022-02-26] MEDS: INSULIN LISPRO (NovoLOG) PER UNIT SC SCH ×4 (08:31→22:33)
[2022-02-26] MEDS: amLODIPine 5 MG TAB PO SCH (08:32)
[2022-02-26] MEDS: CEFDINIR 300 MG CAP (OMNICEF) PO SCH ×2 (08:35→22:32)
[2022-02-26 13:56] VITALS: O2SAT 96
[2022-02-26] MEDS: RIVAROXABAN 20MG TAB (XARELTO) PO SCH (17:08)
[2022-02-26] MEDS: ATORVASTATIN 20 MG TAB PO SCH (22:32)
[2022-02-26] MEDS: DONEPEZIL 5 MG TAB PO SCH (22:32)
[2022-02-26] MEDS: LOSARTAN 50MG TABLET PO SCH (22:32)
[2022-02-26] MEDS: SENNA 8.6 MG TAB (SENOKOT) PO PRN (22:33)
[2022-02-26] MEDS: QUEtiapine FUMARATE 25 MG TAB PO PRN (22:33)
[2022-02-27] MEDS: IPRATROPIUM 0.5MG/ALBUTEROL 2.5MG INH SOL UD 3ML (DUONEB) NEB SCH ×4 (01:19→20:00)
[2022-02-27 06:00] VITALS: BP 114/61
[2022-02-27 06:42] LABS: BLOOD UREA NITROGEN 14 MG/DL (7-18); CALCIUM LEVEL 8.7 MG/DL (8.8-10.2); CARBON DIOXIDE LEVEL 38 MEQ/L (21-32); CHLORIDE LEVEL 95 MEQ/L (98-107); CREATININE FOR GFR 0.42 MG/DL (0.55-1.30); GLOMERULAR FILTRATION RATE > 60.0 (>32); GLUCOSE, FASTING 99 MG/DL (70-100); POTASSIUM SERUM 3.4 MEQ/L (3.5-5.1); SODIUM LEVEL 136 MEQ/L (136-145)
[2022-02-27] MEDS: INSULIN LISPRO (NovoLOG) PER UNIT SC SCH ×4 (07:30→22:45)
[2022-02-27] MEDS ORDERED: POTASSIUM CHLORIDE 10MEQ SR TABLET PO ONE (08:00)
[2022-02-27] MEDS: GABAPENTIN 100 MG CAP PO SCH ×2 (16:36→22:45)
[2022-02-27] MEDS: amLODIPine 5 MG TAB PO SCH (16:36)
[2022-02-27] MEDS: VITAMIN D 1,000 INTERNATIONAL UNITS TABLET PO SCH (16:37)
[2022-02-27] MEDS: MULTIVITAMINS/MINERALS THERAP 1 TAB PO SCH (16:37)
[2022-02-27] MEDS: CEFDINIR 300 MG CAP (OMNICEF) PO SCH ×2 (16:37→22:45)
[2022-02-27] MEDS: QUEtiapine FUMARATE 25 MG TAB PO PRN (17:28)
[2022-02-27] MEDS ORDERED: OLANZapine INTRAMUSCULAR 10MG VIAL IM PRN ×2 (17:45→23:30)
[2022-02-27] MEDS: RIVAROXABAN 20MG TAB (XARELTO) PO SCH (18:00)
[2022-02-27] MEDS: ATORVASTATIN 20 MG TAB PO SCH (22:45)
[2022-02-27] MEDS: DONEPEZIL 5 MG TAB PO SCH (22:45)
[2022-02-27] MEDS: LOSARTAN 50MG TABLET PO SCH (22:45)
[2022-02-27 23:00] VITALS: BP 141/67
[2022-02-27] MEDS: CLOTRIMAZOLE 1% TOPICAL CREAM 30GM TOP SCH (23:55)
[2022-02-28] MEDS: IPRATROPIUM 0.5MG/ALBUTEROL 2.5MG INH SOL UD 3ML (DUONEB) NEB SCH ×4 (03:13→21:03)
[2022-02-28 06:00] VITALS: BP 139/72
[2022-02-28] MEDS ORDERED: OLANZapine INTRAMUSCULAR 10MG VIAL IM PRN (06:00)
[2022-02-28] MEDS: INSULIN LISPRO (NovoLOG) PER UNIT SC SCH ×4 (07:30→20:44)
[2022-02-28] MEDS: MULTIVITAMINS/MINERALS THERAP 1 TAB PO SCH ×2 (09:00→18:47)
[2022-02-28] MEDS: VITAMIN D 1,000 INTERNATIONAL UNITS TABLET PO SCH ×2 (09:00→18:47)
[2022-02-28] MEDS: CEFDINIR 300 MG CAP (OMNICEF) PO SCH ×2 (09:00→20:44)
[2022-02-28] MEDS: amLODIPine 5 MG TAB PO SCH (09:00)
[2022-02-28] MEDS: CLOTRIMAZOLE 1% TOPICAL CREAM 30GM TOP SCH ×2 (09:00→20:48)
[2022-02-28] MEDS: GABAPENTIN 100 MG CAP PO SCH ×2 (09:00→20:44)
[2022-02-28] MEDS: OLANZapine INTRAMUSCULAR 10MG VIAL IM PRN (10:13)
[2022-02-28 13:20] LABS: BASO # 0.1 10^3/uL (0.0-0.2); BASO % 1.3 % (0.0-1.0); EOS # 0.2 10^3/uL (0.0-0.5); EOS % 3.9 % (0.0-3.0); HEMOGLOBIN 11.6 g/dl (12.0-15.5); LYMPH # 0.9 10^3/uL (1.5-5.0); LYMPH % 19.6 % (24.0-44.0); MEAN CORPUSCULAR HEMOGLOBIN 32.7 pg (27.0-33.0); MEAN CORPUSCULAR HGB CONC 31.4 g/dl (32.0-36.5); MEAN CORPUSCULAR VOLUME 104.2 fl (80.0-96.0); MONO # 0.5 10^3/uL (0.0-0.8); MONO % 10.1 % (2.0-8.0); NEUTROPHILS % 64.9 % (36.0-66.0); PLATELET COUNT, AUTOMATED 232 10^3/uL (150-450); RED BLOOD COUNT 3.55 10^6/uL (4.00-5.40); WHITE BLOOD COUNT 4.6 10^3/uL (4.0-10.0)
[2022-02-28 14:05] LABS: BLOOD UREA NITROGEN 11 MG/DL (7-18); CALCIUM LEVEL 8.8 MG/DL (8.8-10.2); CARBON DIOXIDE LEVEL 38 MEQ/L (21-32); CHLORIDE LEVEL 94 MEQ/L (98-107); CREATININE FOR GFR 0.47 MG/DL (0.55-1.30); GLOMERULAR FILTRATION RATE > 60.0 (>32); GLUCOSE, FASTING 168 MG/DL (70-100); POTASSIUM SERUM 3.4 MEQ/L (3.5-5.1); SODIUM LEVEL 135 MEQ/L (136-145)
[2022-02-28 14:35] LABS: ERYTHROCYTE SEDIMENTATION RATE 26 mm/hr (0-30)
[2022-02-28 16:27] VITALS: BP 96/64
[2022-02-28] MEDS: RIVAROXABAN 20MG TAB (XARELTO) PO SCH (18:37)
[2022-02-28 20:30] VITALS: BP 96/49
[2022-02-28] MEDS: LOSARTAN 50MG TABLET PO SCH (20:43)
[2022-02-28] MEDS: DONEPEZIL 5 MG TAB PO SCH (20:43)
[2022-02-28] MEDS: ATORVASTATIN 20 MG TAB PO SCH (20:44)
[2022-02-28] MEDS: SENNA 8.6 MG TAB (SENOKOT) PO PRN (20:44)
[2022-02-28] MEDS: ACETAMINOPHEN TAB 650MG DOSE (2X325MG) PO PRN (20:45)
[2022-03-01] MEDS: IPRATROPIUM 0.5MG/ALBUTEROL 2.5MG INH SOL UD 3ML (DUONEB) NEB SCH ×4 (00:42→20:43)
[2022-03-01 06:00] VITALS: BP 104/54
[2022-03-01] MEDS: GABAPENTIN 100 MG CAP PO SCH ×2 (08:05→20:58)
[2022-03-01] MEDS: INSULIN LISPRO (NovoLOG) PER UNIT SC SCH ×5 (08:05→20:18)
[2022-03-01] MEDS: VITAMIN D 1,000 INTERNATIONAL UNITS TABLET PO SCH (08:06)
[2022-03-01] MEDS: MULTIVITAMINS/MINERALS THERAP 1 TAB PO SCH (08:06)
[2022-03-01] MEDS: amLODIPine 5 MG TAB PO SCH (08:08)
[2022-03-01] MEDS: CLOTRIMAZOLE 1% TOPICAL CREAM 30GM TOP SCH ×2 (08:11→21:00)
[2022-03-01 08:13] LABS: BLOOD UREA NITROGEN 14 MG/DL (7-18); CARBON DIOXIDE LEVEL 38 MEQ/L (21-32); CHLORIDE LEVEL 95 MEQ/L (98-107); GLOMERULAR FILTRATION RATE > 60.0 (>32); GLUCOSE, FASTING 155 MG/DL (70-100); POTASSIUM SERUM 3.4 MEQ/L (3.5-5.1); SODIUM LEVEL 136 MEQ/L (136-145)
[2022-03-01] MEDS ORDERED: MECLIZINE 25 MG TABLET PO PRN (10:10)
[2022-03-01] MEDS ORDERED: POTASSIUM CHLORIDE 10MEQ SR TABLET PO ONE (11:45)
[2022-03-01] MEDS: SENNA 8.6 MG TAB (SENOKOT) PO PRN (12:43)
[2022-03-01 14:30] VITALS: BP_SYST 118; BP_SYST 120; BP_SYST 121; BP_DIAS 65; BP_DIAS 68
[2022-03-01] MEDS: RIVAROXABAN 20MG TAB (XARELTO) PO SCH (18:02)
[2022-03-01 20:00] VITALS: BP 116/67
[2022-03-01] MEDS ORDERED: QUEtiapine FUMARATE 25 MG TAB PO ONE (20:00)
[2022-03-01] MEDS: DONEPEZIL 5 MG TAB PO SCH (20:58)
[2022-03-01] MEDS: ATORVASTATIN 20 MG TAB PO SCH (20:58)
[2022-03-01] MEDS: ACETAMINOPHEN TAB 650MG DOSE (2X325MG) PO PRN (20:59)
[2022-03-01] MEDS: IPRATROPIUM 0.5MG/ALBUTEROL 2.5MG INH SOL UD 3ML (DUONEB) NEB PRN (23:46)
[2022-03-02] MEDS: IPRATROPIUM 0.5MG/ALBUTEROL 2.5MG INH SOL UD 3ML (DUONEB) NEB SCH ×4 (02:00→20:37)
[2022-03-02 06:00] VITALS: BP 124/52
[2022-03-02] MEDS: VITAMIN D 1,000 INTERNATIONAL UNITS TABLET PO SCH (08:04)
[2022-03-02] MEDS: INSULIN LISPRO (NovoLOG) PER UNIT SC SCH ×4 (08:04→22:00)
[2022-03-02] MEDS: GABAPENTIN 100 MG CAP PO SCH ×2 (08:05→22:00)
[2022-03-02] MEDS: MULTIVITAMINS/MINERALS THERAP 1 TAB PO SCH (08:05)
[2022-03-02] MEDS: CLOTRIMAZOLE 1% TOPICAL CREAM 30GM TOP SCH ×2 (08:06→22:00)
[2022-03-02] MEDS: amLODIPine 5 MG TAB PO SCH (08:06)
[2022-03-02] MEDS: RIVAROXABAN 20MG TAB (XARELTO) PO SCH (17:33)
[2022-03-02] MEDS ORDERED: QUEtiapine FUMARATE 25 MG TAB PO PRN (20:00)
[2022-03-02] MEDS: DONEPEZIL 5 MG TAB PO SCH (22:00)
[2022-03-02] MEDS: ATORVASTATIN 20 MG TAB PO SCH (22:00)
[2022-03-02] MEDS: OLANZapine INTRAMUSCULAR 10MG VIAL IM PRN (22:17)
[2022-03-03] MEDS: IPRATROPIUM 0.5MG/ALBUTEROL 2.5MG INH SOL UD 3ML (DUONEB) NEB SCH ×4 (04:01→19:57)
[2022-03-03] MEDS: INSULIN LISPRO (NovoLOG) PER UNIT SC SCH ×4 (08:59→21:00)
[2022-03-03] MEDS: CLOTRIMAZOLE 1% TOPICAL CREAM 30GM TOP SCH ×2 (09:00→21:39)
[2022-03-03] MEDS: VITAMIN D 1,000 INTERNATIONAL UNITS TABLET PO SCH (09:06)
[2022-03-03] MEDS: amLODIPine 5 MG TAB PO SCH (09:06)
[2022-03-03] MEDS: MULTIVITAMINS/MINERALS THERAP 1 TAB PO SCH (09:06)
[2022-03-03] MEDS: GABAPENTIN 100 MG CAP PO SCH ×2 (09:06→21:39)
[2022-03-03] MEDS: QUEtiapine FUMARATE 25 MG TAB PO PRN ×2 (09:06→21:39)
[2022-03-03] MEDS: OLANZapine INTRAMUSCULAR 10MG VIAL IM PRN (13:28)
[2022-03-03] MEDS: RIVAROXABAN 20MG TAB (XARELTO) PO SCH (17:35)
[2022-03-03] MEDS: DONEPEZIL 5 MG TAB PO SCH (21:38)
[2022-03-03] MEDS: SENNA 8.6 MG TAB (SENOKOT) PO PRN (21:39)
[2022-03-03] MEDS: RAMELTEON 8 MG TAB (ROZEREM) PO PRN (21:39)
[2022-03-03] MEDS: ATORVASTATIN 20 MG TAB PO SCH (21:39)
[2022-03-03] MEDS: ACETAMINOPHEN TAB 650MG DOSE (2X325MG) PO PRN (21:41)
[2022-03-04] MEDS: IPRATROPIUM 0.5MG/ALBUTEROL 2.5MG INH SOL UD 3ML (DUONEB) NEB SCH ×4 (02:00→20:00)
[2022-03-04 06:52] VITALS: BP 113/59
[2022-03-04] MEDS: MULTIVITAMINS/MINERALS THERAP 1 TAB PO SCH (08:45)
[2022-03-04] MEDS: VITAMIN D 1,000 INTERNATIONAL UNITS TABLET PO SCH (08:45)
[2022-03-04] MEDS: GABAPENTIN 100 MG CAP PO SCH ×2 (08:45→22:00)
[2022-03-04] MEDS: QUEtiapine FUMARATE 25 MG TAB PO PRN (08:45)
[2022-03-04] MEDS: amLODIPine 5 MG TAB PO SCH (08:45)
[2022-03-04] MEDS: CLOTRIMAZOLE 1% TOPICAL CREAM 30GM TOP SCH ×2 (08:46→22:00)
[2022-03-04] MEDS: INSULIN LISPRO (NovoLOG) PER UNIT SC SCH ×4 (08:46→22:00)
[2022-03-04] MEDS: RIVAROXABAN 20MG TAB (XARELTO) PO SCH (17:33)
[2022-03-04] MEDS: ATORVASTATIN 20 MG TAB PO SCH (22:00)
[2022-03-04] MEDS: DONEPEZIL 5 MG TAB PO SCH (22:00)
[2022-03-05] MEDS: IPRATROPIUM 0.5MG/ALBUTEROL 2.5MG INH SOL UD 3ML (DUONEB) NEB SCH ×4 (02:00→20:00)
[2022-03-05] MEDS: INSULIN LISPRO (NovoLOG) PER UNIT SC SCH ×4 (07:30→20:02)
[2022-03-05] MEDS: amLODIPine 5 MG TAB PO SCH (08:54)
[2022-03-05] MEDS: MULTIVITAMINS/MINERALS THERAP 1 TAB PO SCH (08:54)
[2022-03-05] MEDS: VITAMIN D 1,000 INTERNATIONAL UNITS TABLET PO SCH (08:54)
[2022-03-05] MEDS: GABAPENTIN 100 MG CAP PO SCH ×2 (08:54→20:02)
[2022-03-05] MEDS: CLOTRIMAZOLE 1% TOPICAL CREAM 30GM TOP SCH ×2 (08:55→20:05)
[2022-03-05] MEDS: RIVAROXABAN 20MG TAB (XARELTO) PO SCH (17:22)
[2022-03-05] MEDS: ATORVASTATIN 20 MG TAB PO SCH (20:02)
[2022-03-05] MEDS: DONEPEZIL 5 MG TAB PO SCH (20:02)
[2022-03-05] MEDS: RAMELTEON 8 MG TAB (ROZEREM) PO PRN (20:02)
[2022-03-06] MEDS: IPRATROPIUM 0.5MG/ALBUTEROL 2.5MG INH SOL UD 3ML (DUONEB) NEB SCH ×4 (02:00→19:26)
[2022-03-06 06:00] VITALS: BP 110/55
[2022-03-06] MEDS: INSULIN LISPRO (NovoLOG) PER UNIT SC SCH ×4 (08:28→19:35)
[2022-03-06 08:29] VITALS: BP 110/55
[2022-03-06] MEDS: MULTIVITAMINS/MINERALS THERAP 1 TAB PO SCH (08:29)
[2022-03-06] MEDS: GABAPENTIN 100 MG CAP PO SCH ×2 (08:29→19:35)
[2022-03-06] MEDS: VITAMIN D 1,000 INTERNATIONAL UNITS TABLET PO SCH (08:29)
[2022-03-06] MEDS: amLODIPine 5 MG TAB PO SCH (08:29)
[2022-03-06] MEDS: CLOTRIMAZOLE 1% TOPICAL CREAM 30GM TOP SCH ×2 (08:29→19:33)
[2022-03-06] MEDS: ACETAMINOPHEN TAB 650MG DOSE (2X325MG) PO PRN (13:57)
[2022-03-06] MEDS: RIVAROXABAN 20MG TAB (XARELTO) PO SCH (18:00)
[2022-03-06] MEDS: ATORVASTATIN 20 MG TAB PO SCH (19:35)
[2022-03-06] MEDS: DONEPEZIL 5 MG TAB PO SCH (19:35)
[2022-03-07] MEDS: IPRATROPIUM 0.5MG/ALBUTEROL 2.5MG INH SOL UD 3ML (DUONEB) NEB SCH ×4 (01:36→20:11)
[2022-03-07 05:30] VITALS: BP 117/54
[2022-03-07] MEDS: INSULIN LISPRO (NovoLOG) PER UNIT SC SCH ×4 (07:30→19:27)
[2022-03-07] MEDS: CLOTRIMAZOLE 1% TOPICAL CREAM 30GM TOP SCH ×2 (09:00→19:27)
[2022-03-07] MEDS: MULTIVITAMINS/MINERALS THERAP 1 TAB PO SCH (09:00)
[2022-03-07] MEDS: VITAMIN D 1,000 INTERNATIONAL UNITS TABLET PO SCH (09:00)
[2022-03-07] MEDS: amLODIPine 5 MG TAB PO SCH (09:00)
[2022-03-07] MEDS: GABAPENTIN 100 MG CAP PO SCH ×2 (09:00→19:27)
[2022-03-07] MEDS: RIVAROXABAN 20MG TAB (XARELTO) PO SCH (18:00)
[2022-03-07] MEDS: OLANZapine INTRAMUSCULAR 10MG VIAL IM PRN (19:24)
[2022-03-07] MEDS: DONEPEZIL 5 MG TAB PO SCH (19:27)
[2022-03-07] MEDS: ATORVASTATIN 20 MG TAB PO SCH (19:27)
[2022-03-08] MEDS: IPRATROPIUM 0.5MG/ALBUTEROL 2.5MG INH SOL UD 3ML (DUONEB) NEB SCH ×4 (02:00→20:00)
[2022-03-08] MEDS: OLANZapine INTRAMUSCULAR 10MG VIAL IM PRN ×2 (07:45→22:57)
[2022-03-08] MEDS: CLOTRIMAZOLE 1% TOPICAL CREAM 30GM TOP SCH ×2 (09:00→21:00)
[2022-03-08] MEDS: INSULIN LISPRO (NovoLOG) PER UNIT SC SCH ×4 (09:20→21:00)
[2022-03-08] MEDS: amLODIPine 5 MG TAB PO SCH (09:54)
[2022-03-08] MEDS: GABAPENTIN 100 MG CAP PO SCH ×3 (09:54→21:31)
[2022-03-08] MEDS: MULTIVITAMINS/MINERALS THERAP 1 TAB PO SCH (09:54)
[2022-03-08] MEDS: VITAMIN D 1,000 INTERNATIONAL UNITS TABLET PO SCH (09:54)
[2022-03-08] MEDS: RIVAROXABAN 20MG TAB (XARELTO) PO SCH (17:40)
[2022-03-08] MEDS: DONEPEZIL 5 MG TAB PO SCH ×2 (21:00→21:31)
[2022-03-08] MEDS: ATORVASTATIN 20 MG TAB PO SCH ×2 (21:00→21:31)
[2022-03-09] MEDS: IPRATROPIUM 0.5MG/ALBUTEROL 2.5MG INH SOL UD 3ML (DUONEB) NEB SCH ×4 (02:00→20:00)
[2022-03-09] MEDS: INSULIN LISPRO (NovoLOG) PER UNIT SC SCH ×4 (07:30→19:30)
[2022-03-09] MEDS: QUEtiapine FUMARATE 25 MG TAB PO PRN (11:31)
[2022-03-09] MEDS: VITAMIN D 1,000 INTERNATIONAL UNITS TABLET PO SCH (11:31)
[2022-03-09] MEDS: amLODIPine 5 MG TAB PO SCH (11:31)
[2022-03-09] MEDS: MULTIVITAMINS/MINERALS THERAP 1 TAB PO SCH (11:32)
[2022-03-09] MEDS: GABAPENTIN 100 MG CAP PO SCH ×2 (11:32→19:20)
[2022-03-09] MEDS: CLOTRIMAZOLE 1% TOPICAL CREAM 30GM TOP SCH ×2 (11:33→19:20)
[2022-03-09] MEDS: RIVAROXABAN 20MG TAB (XARELTO) PO SCH (17:44)
[2022-03-09] MEDS: RAMELTEON 8 MG TAB (ROZEREM) PO PRN (19:20)
[2022-03-09] MEDS: ATORVASTATIN 20 MG TAB PO SCH (19:20)
[2022-03-09] MEDS: DONEPEZIL 5 MG TAB PO SCH (19:20)
[2022-03-10] MEDS: IPRATROPIUM 0.5MG/ALBUTEROL 2.5MG INH SOL UD 3ML (DUONEB) NEB SCH ×4 (01:34→20:18)
[2022-03-10 04:57] VITALS: BP 134/65
[2022-03-10] MEDS: INSULIN LISPRO (NovoLOG) PER UNIT SC SCH ×4 (07:30→20:35)
[2022-03-10] MEDS: GABAPENTIN 100 MG CAP PO SCH ×2 (14:42→20:35)
[2022-03-10] MEDS: MULTIVITAMINS/MINERALS THERAP 1 TAB PO SCH (14:42)
[2022-03-10] MEDS: amLODIPine 5 MG TAB PO SCH (14:42)
[2022-03-10] MEDS: VITAMIN D 1,000 INTERNATIONAL UNITS TABLET PO SCH (14:42)
[2022-03-10] MEDS: CLOTRIMAZOLE 1% TOPICAL CREAM 30GM TOP SCH ×2 (14:43→20:37)
[2022-03-10] MEDS: RIVAROXABAN 20MG TAB (XARELTO) PO SCH (17:37)
[2022-03-10] MEDS ORDERED: POLYVINYL ALCOHOL OPHTH SOLN 15 ML(LIQUITEARS) OU PRN (18:55)
[2022-03-10] MEDS: DONEPEZIL 5 MG TAB PO SCH (20:35)
[2022-03-10] MEDS: ATORVASTATIN 20 MG TAB PO SCH (20:35)
[2022-03-10] MEDS: SIMBRINZA OU SCH (21:00)
[2022-03-11] MEDS: IPRATROPIUM 0.5MG/ALBUTEROL 2.5MG INH SOL UD 3ML (DUONEB) NEB SCH ×4 (02:00→19:24)
[2022-03-11] MEDS: GABAPENTIN 100 MG CAP PO SCH ×2 (09:00→19:46)
[2022-03-11] MEDS: MULTIVITAMINS/MINERALS THERAP 1 TAB PO SCH (09:00)
[2022-03-11] MEDS: CLOTRIMAZOLE 1% TOPICAL CREAM 30GM TOP SCH ×2 (09:00→19:48)
[2022-03-11] MEDS: VITAMIN D 1,000 INTERNATIONAL UNITS TABLET PO SCH (09:00)
[2022-03-11] MEDS: amLODIPine 5 MG TAB PO SCH (09:00)
[2022-03-11] MEDS: SIMBRINZA OU SCH ×2 (09:00→19:47)
[2022-03-11] MEDS: INSULIN LISPRO (NovoLOG) PER UNIT SC SCH ×4 (09:30→19:48)
[2022-03-11] MEDS: metFORMIN (GLUCOPHAGE) 1000MG TABLET PO SCH ×2 (09:57→17:34)
[2022-03-11] MEDS: RIVAROXABAN 20MG TAB (XARELTO) PO SCH (17:34)
[2022-03-11] MEDS: QUEtiapine FUMARATE 25 MG TAB PO PRN (19:45)
[2022-03-11] MEDS: RAMELTEON 8 MG TAB (ROZEREM) PO PRN (19:45)
[2022-03-11] MEDS: DONEPEZIL 5 MG TAB PO SCH (19:46)
[2022-03-11] MEDS: ATORVASTATIN 20 MG TAB PO SCH (19:46)
[2022-03-12] MEDS: ACETAMINOPHEN TAB 650MG DOSE (2X325MG) PO PRN (00:07)
[2022-03-12] MEDS: IPRATROPIUM 0.5MG/ALBUTEROL 2.5MG INH SOL UD 3ML (DUONEB) NEB SCH ×4 (01:56→19:55)
[2022-03-12] MEDS: INSULIN LISPRO (NovoLOG) PER UNIT SC SCH ×4 (07:30→20:20)
[2022-03-12] MEDS: VITAMIN D 1,000 INTERNATIONAL UNITS TABLET PO SCH (10:35)
[2022-03-12] MEDS: SIMBRINZA OU SCH ×2 (10:35→20:20)
[2022-03-12] MEDS: MULTIVITAMINS/MINERALS THERAP 1 TAB PO SCH (10:35)
[2022-03-12] MEDS: GABAPENTIN 100 MG CAP PO SCH ×2 (10:35→20:20)
[2022-03-12] MEDS: metFORMIN (GLUCOPHAGE) 1000MG TABLET PO SCH ×2 (10:35→17:17)
[2022-03-12] MEDS: amLODIPine 5 MG TAB PO SCH (10:36)
[2022-03-12] MEDS: CLOTRIMAZOLE 1% TOPICAL CREAM 30GM TOP SCH ×2 (10:37→20:21)
[2022-03-12] MEDS: RIVAROXABAN 20MG TAB (XARELTO) PO SCH (17:17)
[2022-03-12] MEDS: DONEPEZIL 5 MG TAB PO SCH (20:20)
[2022-03-12] MEDS: ATORVASTATIN 20 MG TAB PO SCH (20:20)
[2022-03-13] MEDS: IPRATROPIUM 0.5MG/ALBUTEROL 2.5MG INH SOL UD 3ML (DUONEB) NEB SCH ×3 (02:00→09:23)
[2022-03-13 06:00] VITALS: BP 122/69
[2022-03-13] MEDS: metFORMIN (GLUCOPHAGE) 1000MG TABLET PO SCH ×2 (08:00→17:55)
[2022-03-13] MEDS: INSULIN LISPRO (NovoLOG) PER UNIT SC SCH ×4 (08:51→20:58)
[2022-03-13] MEDS: MULTIVITAMINS/MINERALS THERAP 1 TAB PO SCH (08:52)
[2022-03-13] MEDS: amLODIPine 5 MG TAB PO SCH (08:52)
[2022-03-13] MEDS: VITAMIN D 1,000 INTERNATIONAL UNITS TABLET PO SCH (08:52)
[2022-03-13] MEDS: GABAPENTIN 100 MG CAP PO SCH ×2 (08:52→20:59)
[2022-03-13] MEDS: SIMBRINZA OU SCH ×2 (08:52→21:01)
[2022-03-13] MEDS: CLOTRIMAZOLE 1% TOPICAL CREAM 30GM TOP SCH ×2 (08:53→21:00)
[2022-03-13 09:38] LABS: BASO % 0.8 % (0.0-1.0); EOS # 0.2 10^3/uL (0.0-0.5); EOS % 4.3 % (0.0-3.0); HEMATOCRIT 36.2 % (36.0-47.0); HEMOGLOBIN 11.2 g/dl (12.0-15.5); LYMPH # 0.8 10^3/uL (1.5-5.0); LYMPH % 17.4 % (24.0-44.0); MEAN CORPUSCULAR HEMOGLOBIN 32.8 pg (27.0-33.0); MEAN CORPUSCULAR HGB CONC 30.9 g/dl (32.0-36.5); MEAN CORPUSCULAR VOLUME 106.2 fl (80.0-96.0); MONO # 0.5 10^3/uL (0.0-0.8); MONO % 9.7 % (2.0-8.0); NEUTROPHILS # 3.3 10^3/uL (1.5-8.5); NEUTROPHILS % 67.6 % (36.0-66.0); PLATELET COUNT, AUTOMATED 191 10^3/uL (150-450); RED BLOOD COUNT 3.41 10^6/uL (4.00-5.40); WHITE BLOOD COUNT 4.8 10^3/uL (4.0-10.0)
[2022-03-13 10:06] LABS: BLOOD UREA NITROGEN 7 MG/DL (7-18); CARBON DIOXIDE LEVEL 37 MEQ/L (21-32); CHLORIDE LEVEL 101 MEQ/L (98-107); CREATININE FOR GFR 0.37 MG/DL (0.55-1.30); GLOMERULAR FILTRATION RATE > 60.0 (>32); GLUCOSE, FASTING 160 MG/DL (70-100); MAGNESIUM LEVEL 1.8 MG/DL (1.8-2.4); POTASSIUM SERUM 3.9 MEQ/L (3.5-5.1); SODIUM LEVEL 140 MEQ/L (136-145)
[2022-03-13] MEDS: RIVAROXABAN 20MG TAB (XARELTO) PO SCH (12:47)
[2022-03-13] MEDS: POTASSIUM CHLORIDE 10MEQ SR TABLET PO SCH (12:47)
[2022-03-13] MEDS: FUROSEMIDE 40 MG TAB PO SCH ×2 (12:47→17:00)
[2022-03-13] MEDS: ATORVASTATIN 20 MG TAB PO SCH (20:59)
[2022-03-13] MEDS: ACETAMINOPHEN TAB 650MG DOSE (2X325MG) PO PRN (20:59)
[2022-03-13] MEDS: DONEPEZIL 5 MG TAB PO SCH (21:00)
[2022-03-14] MEDS: INSULIN LISPRO (NovoLOG) PER UNIT SC SCH ×4 (07:30→21:00)
[2022-03-14] MEDS: metFORMIN (GLUCOPHAGE) 1000MG TABLET PO SCH ×2 (08:00→17:00)
[2022-03-14] MEDS: CLOTRIMAZOLE 1% TOPICAL CREAM 30GM TOP SCH ×2 (09:00→21:00)
[2022-03-14] MEDS: POTASSIUM CHLORIDE 10MEQ SR TABLET PO SCH (09:00)
[2022-03-14] MEDS: SIMBRINZA OU SCH ×2 (09:00→21:42)
[2022-03-14] MEDS: GABAPENTIN 100 MG CAP PO SCH ×3 (09:00→21:37)
[2022-03-14] MEDS: MULTIVITAMINS/MINERALS THERAP 1 TAB PO SCH ×2 (09:00→11:53)
[2022-03-14] MEDS: FUROSEMIDE 40 MG TAB PO SCH ×3 (09:00→17:00)
[2022-03-14] MEDS: VITAMIN D 1,000 INTERNATIONAL UNITS TABLET PO SCH ×2 (09:00→11:52)
[2022-03-14] MEDS: amLODIPine 5 MG TAB PO SCH (09:00)
[2022-03-14] MEDS: RIVAROXABAN 20MG TAB (XARELTO) PO SCH (17:00)
[2022-03-14] MEDS: ATORVASTATIN 20 MG TAB PO SCH (21:37)
[2022-03-14] MEDS: DONEPEZIL 5 MG TAB PO SCH (21:37)
[2022-03-15 05:57] VITALS: BP 122/67
[2022-03-15] MEDS: IPRATROPIUM 0.5MG/ALBUTEROL 2.5MG INH SOL UD 3ML (DUONEB) NEB PRN (06:03)
[2022-03-15] MEDS: INSULIN LISPRO (NovoLOG) PER UNIT SC SCH ×2 (07:30→12:00)
[2022-03-15] MEDS: amLODIPine 5 MG TAB PO SCH (08:52)
[2022-03-15] MEDS: GABAPENTIN 100 MG CAP PO SCH (08:52)
[2022-03-15] MEDS: POTASSIUM CHLORIDE 10MEQ SR TABLET PO SCH (08:52)
[2022-03-15] MEDS: MULTIVITAMINS/MINERALS THERAP 1 TAB PO SCH (08:53)
[2022-03-15] MEDS: metFORMIN (GLUCOPHAGE) 1000MG TABLET PO SCH (08:53)
[2022-03-15] MEDS: VITAMIN D 1,000 INTERNATIONAL UNITS TABLET PO SCH (08:53)
[2022-03-15] MEDS: FUROSEMIDE 40 MG TAB PO SCH (08:53)
[2022-03-15] MEDS: CLOTRIMAZOLE 1% TOPICAL CREAM 30GM TOP SCH (09:00)
[2022-03-15] MEDS: SIMBRINZA OU SCH (09:34)
[2022-03-15] MEDS ORDERED: FURO40TA2 PO (11:02)
[2022-03-15] MEDS ORDERED: ARIC1TAB PO (11:02)
[2022-03-15] MEDS ORDERED: AMLO1TAB24 PO (11:02)
[2022-03-15] MEDS ORDERED: ABIL1TAB11 PO (11:02)
[2022-03-15] MEDS ORDERED: POTA-136 PO (11:02)
[2022-03-15] MEDS ORDERED: RAME8TAB2 PO (11:02)
[2022-03-15] MEDS ORDERED: CLOTR1CR TOP (11:02)
[2022-03-15] MEDS: ACETAMINOPHEN TAB 650MG DOSE (2X325MG) PO PRN (11:53)
[2022-03-15] MEDS: QUEtiapine FUMARATE 25 MG TAB PO PRN (11:53)
[2022-03-15 12:57] LABS: BLOOD UREA NITROGEN 11 MG/DL (7-18); CALCIUM LEVEL 8.7 MG/DL (8.8-10.2); CARBON DIOXIDE LEVEL 35 MEQ/L (21-32); CHLORIDE LEVEL 100 MEQ/L (98-107); CREATININE FOR GFR 0.43 MG/DL (0.55-1.30); GLOMERULAR FILTRATION RATE > 60.0 (>32); GLUCOSE, FASTING 165 MG/DL (70-100); POTASSIUM SERUM 3.7 MEQ/L (3.5-5.1); SODIUM LEVEL 139 MEQ/L (136-145)
[2022-03-15] MEDS ORDERED: QUET1TAB17 PO (13:07)
== END 2022-03-15 13:39 | DRG 885 ==
LOC: M ED 11:04 → M ED INP 11:05 → M MSPAV 21:13 → OBSVTOIN 02-23 12:33
PROVIDERS: ADMIT Internal Medicine; ATTEND Internal Medicine
DX: F22 Delusional disorders (principal); I50.32 Chronic diastolic (congestive) heart failure; N39.0 Urinary tract infection, site not specified; I48.19 Other persistent atrial fibrillation; E11.40 Type 2 diabetes mellitus with diabetic neuropathy, unspecified; J44.9 Chronic obstructive pulmonary disease, unspecified; I25.2 Old myocardial infarction; E78.5 Hyperlipidemia, unspecified; I11.0 Hypertensive heart disease with heart failure; G47.33 Obstructive sleep apnea (adult) (pediatric); K21.9 Gastro-esophageal reflux disease without esophagitis; N39.3 Stress incontinence (female) (male); Z66 Do not resuscitate; R41.82 Altered mental status, unspecified; B96.1 Klebsiella pneumoniae [K. pneumoniae] as the cause of diseases classified elsewhere; R41.89 Other symptoms and signs involving cognitive functions and awareness; F03.90 Unspecified dementia, unspecified severity, without behavioral disturbance, psychotic disturbance, mood disturbance, and anxiety; E83.42 Hypomagnesemia; E87.6 Hypokalemia; Z85.118 Personal history of other malignant neoplasm of bronchus and lung; Z79.01 Long term (current) use of anticoagulants; Z79.84 Long term (current) use of oral hypoglycemic drugs; Z79.899 Other long term (current) drug therapy; Z87.19 Personal history of other diseases of the digestive system; Z90.49 Acquired absence of other specified parts of digestive tract; Z98.41 Cataract extraction status, right eye; Z98.42 Cataract extraction status, left eye; Z87.891 Personal history of nicotine dependence; Z99.81 Dependence on supplemental oxygen

== ENCOUNTER → 2022-04-30 | Outpatient (REF) | payer MEDICARE ==
[~2022-04-30] MED LIST changes: +ABIL1TAB11 PO; +AMLO1TAB24 PO; +ARIC1TAB PO; +CLOTR1CR TOP; +FURO40TA2 PO; +PT COMMENT; +QUET1TAB17 PO; +RAME8TAB2 PO
[2022-04-30 07:23] LABS: HEMATOCRIT 32.9 % (36.0-47.0); HEMOGLOBIN 10.9 g/dl (12.0-15.5); MEAN CORPUSCULAR HEMOGLOBIN 32.4 pg (27.0-33.0); MEAN CORPUSCULAR HGB CONC 33.1 g/dl (32.0-36.5); MEAN CORPUSCULAR VOLUME 97.9 fl (80.0-96.0); PLATELET COUNT, AUTOMATED 162 10^3/uL (150-450); RED BLOOD COUNT 3.36 10^6/uL (4.00-5.40); WHITE BLOOD COUNT 5.8 10^3/uL (4.0-10.0)
[2022-04-30 08:09] LABS: BLOOD UREA NITROGEN 17 MG/DL (9-23); CARBON DIOXIDE LEVEL 36 MMOL/L (20-31); CHLORIDE LEVEL 97 MMOL/L (98-107); CREATININE FOR GFR 0.61 MG/DL (0.55-1.30); GLOMERULAR FILTRATION RATE > 60.0 (>32); GLUCOSE, FASTING 90 MG/DL (74-106); POTASSIUM SERUM 3.1 MMOL/L (3.5-5.1); SODIUM LEVEL 141 MMOL/L (136-145)
== END ==
LOC: SKLAB3 06:54
PROVIDERS: ATTEND Nurse Practitioner
DX: J44.9 Chronic obstructive pulmonary disease, unspecified (principal); I27.20 Pulmonary hypertension, unspecified; I51.7 Cardiomegaly

== ENCOUNTER → 2022-05-08 | Outpatient (REF) | payer MEDICARE ==
[2022-05-08 09:38] LABS: HEMATOCRIT 38.3 % (36.0-47.0); HEMOGLOBIN 12.1 g/dl (12.0-15.5); MEAN CORPUSCULAR HEMOGLOBIN 32.2 pg (27.0-33.0); MEAN CORPUSCULAR HGB CONC 31.6 g/dl (32.0-36.5); MEAN CORPUSCULAR VOLUME 101.9 fl (80.0-96.0); PLATELET COUNT, AUTOMATED 180 10^3/uL (150-450); RED BLOOD COUNT 3.76 10^6/uL (4.00-5.40); WHITE BLOOD COUNT 8.2 10^3/uL (4.0-10.0)
[2022-05-08 10:08] LABS: BLOOD UREA NITROGEN 38 MG/DL (9-23); CALCIUM LEVEL 8.4 MG/DL (8.3-10.6); CARBON DIOXIDE LEVEL 35 MMOL/L (20-31); CHLORIDE LEVEL 100 MMOL/L (98-107); GLOMERULAR FILTRATION RATE > 60.0 (>32); GLUCOSE, FASTING 112 MG/DL (74-106); POTASSIUM SERUM 3.9 MMOL/L (3.5-5.1); SODIUM LEVEL 143 MMOL/L (136-145)
== END ==
LOC: SKLAB3 08:48
PROVIDERS: ATTEND Nurse Practitioner
DX: J44.1 Chronic obstructive pulmonary disease with (acute) exacerbation (principal); E87.6 Hypokalemia

== ENCOUNTER → 2022-05-27 | Outpatient (REF) ==
[2022-05-27 13:36] LABS: CLOSTRIDIUM DIFFICILE PCR NEGATIVE (NEGATIVE)
== END ==
LOC: SKLAB3 12:48
PROVIDERS: ATTEND Internal Medicine
DX: R19.7 Diarrhea, unspecified (principal)

== ENCOUNTER → 2022-07-01 | Outpatient (REF) | payer MEDICARE ==
[2022-07-01 08:26] LABS: HEMOGLOBIN 8.6 g/dl (12.0-15.5); MEAN CORPUSCULAR HEMOGLOBIN 33.7 pg (27.0-33.0); MEAN CORPUSCULAR HGB CONC 31.9 g/dl (32.0-36.5); MEAN CORPUSCULAR VOLUME 105.9 fl (80.0-96.0); PLATELET COUNT, AUTOMATED 190 10^3/uL (150-450); RED BLOOD COUNT 2.55 10^6/uL (4.00-5.40); WHITE BLOOD COUNT 5.9 10^3/uL (4.0-10.0)
[2022-07-01 09:02] LABS: ALBUMIN 3.2 G/DL (3.2-5.2); ALKALINE PHOSPHATASE 118 U/L (46-116); ALT/SGPT 40 U/L (7.0-40); AST/SGOT 39 U/L (<34); BILIRUBIN,TOTAL 0.4 MG/DL (0.3-1.2); BLOOD UREA NITROGEN 27 MG/DL (9-23); CALCIUM LEVEL 9.1 MG/DL (8.3-10.6); CARBON DIOXIDE LEVEL 33 MMOL/L (20-31); CHLORIDE LEVEL 101 MMOL/L (98-107); CREATININE FOR GFR 0.74 MG/DL (0.55-1.30); GLOMERULAR FILTRATION RATE > 60.0 (>32); GLUCOSE, FASTING 116 MG/DL (74-106); POTASSIUM SERUM 4.4 MMOL/L (3.5-5.1); SODIUM LEVEL 140 MMOL/L (136-145); TOTAL PROTEIN 5.9 G/DL (5.7-8.2)
== END ==
LOC: SKLAB3 07:00
PROVIDERS: ATTEND Internal Medicine
DX: J43.9 Emphysema, unspecified (principal); I70.0 Atherosclerosis of aorta

== ENCOUNTER → 2022-07-02 | Outpatient (CLI) | payer MEDICARE ==
[~2022-07-02] MED LIST changes: +ACET1TAB55 PO; +ARIP1TAB6 PO; +ATIV1TAB10 PO; +DONE5TAB82 PO; +DONE5TAB86 PO; +DULC10SU2 PR; +FLEEENE12 PR; +GLIP5TAB8 PO; +GLUCLIQ37 PO; +HYDR28OI7 TOP; +HYOS125TA PO; +IPRA0.00 NEB; +MELA5CAP2 PO; +META28.32 PO; +METF500T13 PO; +MILKSUS3 PO; +MORP1SOL5 PO; +POTA-151 PO; +PULM0.5S NEB; +TUMS0.15 PO; +TUMS500C PO; +ZINC99OI TOP
== END ==
LOC: M RAD 11:32
PROVIDERS: ATTEND Internal Medicine
DX: R91.8 Other nonspecific abnormal finding of lung field (principal); J44.9 Chronic obstructive pulmonary disease, unspecified; R06.02 Shortness of breath

== ENCOUNTER → 2022-07-02 | Outpatient (REF) | payer MEDICARE ==
[~2022-07-02] MED LIST changes: -ACET1TAB55 PO; -ARIP1TAB6 PO; -ATIV1TAB10 PO; -DONE5TAB82 PO; -DONE5TAB86 PO; -DULC10SU2 PR; -FLEEENE12 PR; -GLIP5TAB8 PO; -GLUCLIQ37 PO; -HYDR28OI7 TOP; -HYOS125TA PO; -IPRA0.00 NEB; -MELA5CAP2 PO; -META28.32 PO; -METF500T13 PO; -MILKSUS3 PO; -MORP1SOL5 PO; -POTA-151 PO; -PULM0.5S NEB; -TUMS0.15 PO; -TUMS500C PO; -ZINC99OI TOP
[2022-07-02 13:23] LABS: HEMATOCRIT 30.8 % (36.0-47.0); HEMOGLOBIN 9.9 g/dl (12.0-15.5); MEAN CORPUSCULAR HEMOGLOBIN 34.1 pg (27.0-33.0); MEAN CORPUSCULAR HGB CONC 32.1 g/dl (32.0-36.5); MEAN CORPUSCULAR VOLUME 106.2 fl (80.0-96.0); PLATELET COUNT, AUTOMATED 231 10^3/uL (150-450); WHITE BLOOD COUNT 14.3 10^3/uL (4.0-10.0)
== END ==
LOC: SKLAB3 10:34
PROVIDERS: ATTEND Nurse Practitioner
DX: R06.02 Shortness of breath (principal)

== ENCOUNTER → 2022-07-06 | Outpatient (REF) | payer MEDICARE ==
[2022-07-06 11:26] LABS: HEMATOCRIT 29.8 % (36.0-47.0); HEMOGLOBIN 9.3 g/dl (12.0-15.5); MEAN CORPUSCULAR HEMOGLOBIN 32.9 pg (27.0-33.0); MEAN CORPUSCULAR HGB CONC 31.2 g/dl (32.0-36.5); MEAN CORPUSCULAR VOLUME 105.3 fl (80.0-96.0); PLATELET COUNT, AUTOMATED 267 10^3/uL (150-450); RED BLOOD COUNT 2.83 10^6/uL (4.00-5.40); WHITE BLOOD COUNT 10.8 10^3/uL (4.0-10.0)
[2022-07-06 12:30] LABS: BLOOD UREA NITROGEN 29 MG/DL (9-23); CARBON DIOXIDE LEVEL 33 MMOL/L (20-31); CHLORIDE LEVEL 98 MMOL/L (98-107); CREATININE FOR GFR 0.77 MG/DL (0.55-1.30); GLOMERULAR FILTRATION RATE > 60.0 (>32); GLUCOSE, FASTING 32 MG/DL (74-106); POTASSIUM SERUM 3.8 MMOL/L (3.5-5.1); SODIUM LEVEL 140 MMOL/L (136-145)
== END ==
LOC: SKLAB3 10:32
PROVIDERS: ATTEND Nurse Practitioner
DX: J44.9 Chronic obstructive pulmonary disease, unspecified (principal)

== ENCOUNTER 2022-07-23 08:52 | Observation (INO) | payer MEDICARE ==
[2022-07-23] MEDS ORDERED: methylPREDNISolone 125MG 2ML VIAL IV ONE (09:00)
[2022-07-23] MEDS ORDERED: FUROSEMIDE 40MG/4ML VIAL IV ONE (09:00)
[2022-07-23 09:19] LABS: BASO % 0.3 % (0.0-1.0); EOS % 0.3 % (0.0-3.0); HEMOGLOBIN 9.8 g/dl (12.0-15.5); LYMPH # 0.3 10^3/uL (1.5-5.0); LYMPH % 2.3 % (24.0-44.0); MEAN CORPUSCULAR HEMOGLOBIN 33.3 pg (27.0-33.0); MEAN CORPUSCULAR HGB CONC 30.6 g/dl (32.0-36.5); MEAN CORPUSCULAR VOLUME 108.8 fl (80.0-96.0); MONO # 0.8 10^3/uL (0.0-0.8); MONO % 5.6 % (2.0-8.0); NEUTROPHILS # 13.8 10^3/uL (1.5-8.5); NEUTROPHILS % 91.1 % (36.0-66.0); PLATELET COUNT, AUTOMATED 263 10^3/uL (150-450); RED BLOOD COUNT 2.94 10^6/uL (4.00-5.40); WHITE BLOOD COUNT 15.1 10^3/uL (4.0-10.0)
[2022-07-23 09:36] LABS: ABG HCO3 30.4 MEQ/L (22.0-26.0); ABG O2 SATURATION 97.1 % (95.0-99.0); ABG PARTIAL PRESSURE O2 105.5 mmHg (75.0-100.0); ABG STANDARD HCO3 26.3 MEQ/L (22.0-26.0); ABG TOTAL CO2 32.6 MEQ/L (23.0-31.0); ABG pH (ARTERIAL) 7.257 UNITS (7.350-7.450)
[2022-07-23 09:37] LABS: ABG PARTIAL PRESSURE CO2 69.8 mmHg (35.0-45.0)
[2022-07-23] MEDS ORDERED: cefTRIAXone SOD 2 GM in D5W MINI-BAG PLUS 50 ML IV ONE (09:55)
[2022-07-23 10:21] LABS: ALBUMIN 2.6 G/DL (3.2-5.2); ALKALINE PHOSPHATASE 161 U/L (46-116); ALT/SGPT 105 U/L (7.0-40); AST/SGOT 160 U/L (<34); BILIRUBIN,DIRECT 0.2 MG/DL (<0.4); BILIRUBIN,TOTAL 0.6 MG/DL (0.3-1.2); BLOOD UREA NITROGEN 30 MG/DL (9-23); CALCIUM LEVEL 8.5 MG/DL (8.3-10.6); CARBON DIOXIDE LEVEL 34 MMOL/L (20-31); CHLORIDE LEVEL 102 MMOL/L (98-107); CK-MB VALUE MASS 2.8 NG/ML (<3.6); GLOMERULAR FILTRATION RATE > 60.0 (>32); GLUCOSE, FASTING 165 MG/DL (74-106); POTASSIUM SERUM 5.5 MMOL/L (3.5-5.1); SODIUM LEVEL 141 MMOL/L (136-145); THYROID STIMULATING HORMONE 4.539 uIU/ML (0.55-4.78)
[2022-07-23] MEDS ORDERED: AMLO1TAB24 PO (10:29)
[2022-07-23] MEDS ORDERED: GLIP5TAB8 PO (10:29)
[2022-07-23] MEDS ORDERED: ARIP1TAB6 PO (10:29)
[2022-07-23] MEDS ORDERED: DONE5TAB86 PO (10:29)
[2022-07-23] MEDS ORDERED: CARD120C3 PO (10:29)
[2022-07-23 10:35] LABS: TOTAL PROTEIN 6.1 G/DL (5.7-8.2)
[2022-07-23 10:36] LABS: CPK CREATINE PHOSPHOKINASE 36 U/L (34-145); MB/CK RELATIVE INDEX 7.77 (< OR =4)
[2022-07-23] MEDS ORDERED: PULM0.5S NEB (10:53)
[2022-07-23] MEDS ORDERED: POTA-151 PO (10:53)
[2022-07-23] MEDS ORDERED: QUET1TAB17 PO (10:53)
[2022-07-23] MEDS ORDERED: FURO40TA2 PO ×3 (10:53→11:36)
[2022-07-23] MEDS ORDERED: HYDR28OI7 TOP (10:53)
[2022-07-23] MEDS ORDERED: META28.32 PO (10:53)
[2022-07-23] MEDS ORDERED: METF500T13 PO (10:53)
[2022-07-23] MEDS ORDERED: IPRA0.00 NEB ×2 (10:53→11:11)
[2022-07-23] MEDS ORDERED: GLUCLIQ37 PO (10:53)
[2022-07-23] MEDS ORDERED: MELA5CAP2 PO (10:53)
[2022-07-23] MEDS ORDERED: SCOPOLAMINE 1MG TRANSDERMAL PATCH TOP PRN (10:55)
[2022-07-23] MEDS ORDERED: MORPHINE 2 MG/ML 1ML VIAL IV PRN (10:55)
[2022-07-23] MEDS ORDERED: LORazepam 2 MG/ML 1ML VIAL IV PRN (10:55)
[2022-07-23 11:00] VITALS: BP 89/50
[2022-07-23] MEDS ORDERED: AZITHROMYCIN INJ 500 MG, VIAL MATE ADAPTER 1 EACH in D5W 250 ML IV ONE (11:00)
[2022-07-23] MEDS ORDERED: ACET1TAB55 PO (11:11)
[2022-07-23] MEDS ORDERED: FLEEENE12 PR (11:11)
[2022-07-23] MEDS ORDERED: DULC10SU2 PR (11:11)
[2022-07-23] MEDS ORDERED: MILKSUS3 PO (11:11)
[2022-07-23] MEDS ORDERED: TUMS0.15 PO (11:11)
[2022-07-23] MEDS ORDERED: XARE20TA PO (11:36)
[2022-07-23] MEDS ORDERED: DONE5TAB82 PO (11:36)
[2022-07-23] MEDS ORDERED: TUMS500C PO (11:36)
[2022-07-23] MEDS ORDERED: ZINC99OI TOP (11:36)
[2022-07-23] MEDS ORDERED: HOME MED LIST COMPLETE! XX SCH (11:40)
[2022-07-23] MEDS ORDERED: ATIV1TAB10 PO (14:04)
[2022-07-23] MEDS ORDERED: HYOS125TA PO (14:04)
[2022-07-23] MEDS ORDERED: MORP1SOL5 PO (14:04)
== END 2022-07-23 14:39 ==
LOC: M ED 08:52 → EDBD 08:52 → M ED INP 08:53 → ENRESERV 12:50 → M MSPAV 13:45
PROVIDERS: ADMIT Internal Medicine; ATTEND Internal Medicine
DX: J96.22 Acute and chronic respiratory failure with hypercapnia (principal); J96.11 Chronic respiratory failure with hypoxia; J44.1 Chronic obstructive pulmonary disease with (acute) exacerbation; J18.9 Pneumonia, unspecified organism; R60.0 Localized edema; R74.8 Abnormal levels of other serum enzymes; E87.5 Hyperkalemia; E87.20 Acidosis, unspecified; R74.01 Elevation of levels of liver transaminase levels; F22 Delusional disorders; F03.90 Unspecified dementia, unspecified severity, without behavioral disturbance, psychotic disturbance, mood disturbance, and anxiety; I48.20 Chronic atrial fibrillation, unspecified; I10 Essential (primary) hypertension; E78.5 Hyperlipidemia, unspecified; E11.42 Type 2 diabetes mellitus with diabetic polyneuropathy; Z87.440 Personal history of urinary (tract) infections; R05.9 Cough, unspecified; Z87.891 Personal history of nicotine dependence; Z79.891 Long term (current) use of opiate analgesic; Z79.899 Other long term (current) drug therapy; Z51.5 Encounter for palliative care
CPT/HCPCS: 36415; 36600; 71045; 80048; 80076; 82550; 82553; 82803; 83605; 83880; 84443; 84484; 85025; 87040; 87486; 87581; 87633; 87798; 93005; 93041; 94760; 96365; 96375; 99285; G0378; J0696; J1940